=== PATIENT | male | born 1980 | race Caucasian/White ===

== ENCOUNTER → 2022-08-15 11:40 | Outpatient (CLI) | payer OTHER, SELFPAY ==
--- NOTE | ~2022-08-15 | US_ITS ---
US scrotum doppler INDICATION: Right testicular pain and swelling TECHNIQUE: Testicular sonogram utilizing grayscale and color Doppler FINDINGS: The testes are normal in size and appearance. No focal lesions are seen. The right testes measures 3.4 x 3.1 x 3.1 cm centimeters, and the left testis measures 3.6 x 2.5 x 3.2 cm cm. There is increased vascularity in the right testicle. Normal flow in the left testicle. The right epididymis is enlarged, heterogeneous with increased vascularity. The left epididymis is un remarkable. There are bilateral hydroceles, right greater than left. There is a left varicocele. IMPRESSION: 1. Enlarged heterogeneous right epididymis with increased flow in the epididymis and testicle, consi stent with epididymoorchitis. 2: Left varicocele. 3: Bilateral hydroceles, right greater than left. Reviewed, dictated and finalized at location A. IMPRESSION: 1. Enlarged heterogeneous right epididymis with increased flow in the epididym is and testicle, consistent with epididymoorchitis. 2: Left varicocele. 3: Bilateral hydroceles, right greater than left.
== END ==
PROVIDERS: PCP Family Medicine; Visit Provider Urology
DX: N45.1 Epididymitis (principal); I86.1 Scrotal varices; N43.3 Hydrocele, unspecified
CPT/HCPCS: 76870; 93976

== ENCOUNTER 2022-12-16 09:01 | Outpatient (CLI) | payer OTHER, SELFPAY ==
[2022-12-16 19:05] LABS: Hematocrit 47.8 % (42.0-52.0); Hemoglobin 16.5 g/dL (14.0-18.0); Mean Corpuscular HGB Conc 34.5 g/dl (32-36); Mean Corpuscular Hemoglobin 29.3 pg (26-34); Mean Corpuscular Volume 84.8 fl (80-100); Platelet Count Result 233 k/mm3 (150-375); Red Blood Count 5.64 M/mm3 (4.6-6.20); Red Cell Distribution Width 14.7 % (11.5-14.5); White Blood Count 6.4 K/mm3 (4.5-10.0)
[2022-12-16 19:28] LABS: Hemoglobin A1C 9.7 % (<5.7)
[2022-12-16 19:39] LABS: Alanine Aminotransferase 54 U/L (6-50); Albumin Level 4.8 g/dL (3.5-5.1); Alkaline Phosphatase 81 U/L (38-126); Anion Gap 10 mmol/L (8-16); Aspartate Amino Transferase 63 U/L (17-59); Bilirubin,Total 2.6 mg/dL (0.2-1.3); Blood Urea Nitrogen 15 mg/dL (9-20); Calcium 9.6 mg/dL (8.4-10.2); Carbon Dioxide 24 mmol/L (22-30); Chloride 102 mmol/L (98-107); Cholesterol 198 mg/dL (0-200); Estimated Glomerular Filt Rate > 60; Glucose 283 mg/dL (65-110); HDL Direct 38 mg/dL; Potassium 4.1 mmol/L (3.4-5.0); Sodium 136 mmol/L (137-145); Triglycerides 311 mg/dL (<150)
[2022-12-16 19:40] LABS: Creatinine Urine 75.1 mg/dL
[2022-12-16 19:46] LABS: MALB Creatinine Ratio 28.4 mg/g (0-30); Microalbumin Urine Random 21.3 mg/L (0-16.7)
[2022-12-16 19:50] LABS: LDL Cholesterol Direct 109 mg/dL
[2022-12-20 10:44] LABS: Testosterone Free 58.1 pg/mL (35.0-155.0); Testosterone Total 306 ng/dL (250-1100)
== END 2022-12-16 09:02 | disposition home or self-care (01) ==
PROVIDERS: PCP Nurse Practitioner Adult Health; Visit Provider Nurse Practitioner Adult Health
DX: E11.9 Type 2 diabetes mellitus without complications (principal); R53.83 Other fatigue; E29.1 Testicular hypofunction; Z13.9 Encounter for screening, unspecified
CPT/HCPCS: 36415; 80053; 80061; 82043; 83036; 84402; 84403; 84443; 85027

== ENCOUNTER 2023-06-17 07:46 | Outpatient (CLI) | payer OTHER, SELFPAY ==
[2023-06-17 19:07] LABS: Alanine Aminotransferase 67 U/L (6-50); Albumin Level 4.3 g/dL (3.5-5.1); Alkaline Phosphatase 62 U/L (38-126); Anion Gap 9 mmol/L (8-16); Aspartate Amino Transferase 89 U/L (17-59); Bilirubin,Total 3.1 mg/dL (0.2-1.3); Blood Urea Nitrogen 13 mg/dL (9-20); Calcium 9.5 mg/dL (8.4-10.2); Carbon Dioxide 24 mmol/L (22-30); Chloride 105 mmol/L (98-107); Cholesterol 113 mg/dL (0-200); Estimated Glomerular Filt Rate > 60; Glucose 162 mg/dL (65-110); HDL Direct 32 mg/dL; Potassium 3.6 mmol/L (3.4-5.0); Sodium 138 mmol/L (137-145); Triglycerides 154 mg/dL (<150)
[2023-06-17 19:19] LABS: LDL Cholesterol Direct 66 mg/dL
[2023-06-17 19:30] LABS: Hemoglobin A1C 7.3 % (<5.7)
[2023-06-17 19:36] LABS: Creatinine Urine 260.3 mg/dL
[2023-06-17 19:44] LABS: MALB Creatinine Ratio 13.4 mg/g (0-30); Microalbumin Urine Random 34.8 mg/L (0-16.7)
== END 2023-06-17 07:47 | disposition home or self-care (01) ==
LOC: ANHBWCLAB 07:48
PROVIDERS: PCP Nurse Practitioner Adult Health; Visit Provider Nurse Practitioner Adult Health
DX: E11.9 Type 2 diabetes mellitus without complications (principal)
CPT/HCPCS: 36415; 80053; 80061; 82043; 83036

== ENCOUNTER → 2023-06-30 08:46 | Outpatient (CLI) | payer OTHER, SELFPAY ==
--- NOTE | ~2023-06-30 | US_ITS ---
EXAMINATION: US abdomen limited DATE: 06/30/2023 09:25 INDICATION: Abnormal liver enzymes TECHNIQUE: Multiple grayscale and Doppler ultrasound images of the abdomen were obtained. COMPARISON: None available FINDINGS: The head and body of the pancreas are normal. The pancreatic tail is obscured by bowel gas. The liver demonstrates increased echogenicity, heterogenous echotexture, and decreased through trans mission. No surface nodularity. Normal hepatopetal flow in the main portal vein. The gallbladder is n ormal with no abnormal wall thickening, pericholecystic fluid or stones. The normal common bile duct measures 4 mm. There was no sonographic Stuart sign. IMPRESSION: 1. Diffuse hepatic steatosis. Reviewed, dictated and finalized at location L. 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
== END ==
PROVIDERS: Visit Provider Nurse Practitioner Adult Health
DX: R74.8 Abnormal levels of other serum enzymes (principal)
CPT/HCPCS: 76705

== ENCOUNTER 2023-09-28 12:24 | Outpatient (CLI) | payer OTHER, SELFPAY ==
[2023-09-28 18:34] LABS: Hematocrit 49.1 % (42.0-52.0); Hemoglobin 17.4 g/dL (14.0-18.0); Mean Corpuscular HGB Conc 35.4 g/dl (32-36); Mean Corpuscular Volume 87.5 fl (80-100); Mean Platelet Volume 10.6 fl (7.4-10.4); Platelet Count Result 214 k/mm3 (150-375); Red Blood Count 5.61 M/mm3 (4.6-6.20); Red Cell Distribution Width 13.1 % (11.5-14.5)
[2023-09-28 19:43] LABS: Estimated Glomerular Filt Rate > 60
== END 2023-09-28 12:25 | disposition home or self-care (01) ==
LOC: ANHBWCLAB 12:25
PROVIDERS: PCP Nurse Practitioner Adult Health; Visit Provider Nurse Practitioner Adult Health
DX: E11.9 Type 2 diabetes mellitus without complications (principal); Z13.9 Encounter for screening, unspecified
CPT/HCPCS: 36415; 82565; 85027

== ENCOUNTER 2023-12-01 09:01 | Outpatient (CLI) | payer OTHER, SELFPAY ==
[2023-12-17 18:14] VITALS: BMI 38.6
--- NOTE | 2023-12-17 18:14 | WPDSLEEPSTUD ---
Sleep Study Date of Study: 12/01/23 Ordering Provider: DEVAN Tamayo Interpreting Physician: Shahla Barlow MD Sleep Study Type: Split Polysomnogram Height: 1.83 m Weight: 129.274 kg Body Mass Index: 38.6 Neck Circumference (inches): 19 [place]: 16 Reason for Sleep Study Hypersomnolence; known obstructive sleep apnea, no treatment for over a year Sleep History Ernst Kelley is a 43-year-old man with excessive daytime sleepiness. He sleeps on his couch because he snores so badly. He is tired throughout the day and tired on awakening. He had a sleep study at [facility] 3-4 years ago, used a full face mask however had poor tolerance of the mask, feeling claustrophobic, said that it felt like it was covering his entire face. He has used anxiety pills and sleeping pills to help with a sleeping problem. He currently takes Seroquel at 6 pm to get ready for sleep. He occasionally awakens from sleep feeling short of breath. He occasionally wakes at night with heartburn, belching or coughing.??He constantly snores, and constantly snores loudly enough that others complain. He occasionally has trouble sleeping when he has a cold. He occasionally wakes up gasping for breath during the night. He rarely sweats excessively at night. He rarely notices his heart pounding or beating irregularly during the night. He frequently falls asleep during the day. He rarely falls asleep involuntarily, however rarely falls asleep while driving. He never experiences loss of muscle tone with strong emotion. 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 He never feels paralyzed on waking or falling asleep. He never experiences vivid dreams upon waking or falling asleep. He rarely feels afraid of going to sleep. He occasionally has nightmares. He occasionally recalls his dreams. He occasionally has thoughts racing through his mind. He rarely feels sad or depressed. He occasionally feels anxiety. He occasionally notices parts of his body jerk. He does not know if he kicks during the night. He rarely feels crawling or aching feelings in his legs. He rarely feels leg pain at night. He never has morning jaw pain, never grinds his teeth at night. He occasionally feels bothered by pain during the day, rarely awakened by pain during the night. He occasionally wakes up feeling stiff in the morning, and he rarely wakes feeling sore or achy. He occasionally awakens with pain in his neck, spine, or joints. He has concentration and memory problems. He has fatigue. Normal bedtime is between 10:00 p.m. and 11:00 p.m., falling asleep within 5 minutes, waking 3 times at night. While awake, he goes to the bathroom and returns to sleep within 2-3 minutes. Wake time is 5:00 a.m.. He typically gets 5-7 hours of sleep per night. He keeps the same schedule on weekends, going to bed at 11 and waking at 5 in the morning. He takes naps in the afternoon or evening however a short nap lasting 10-15 minutes is not refreshing. He is usually drowsy for 3 hours or longer after waking. Habits:??Tobacco: never smoker Caffeine:3-4 servings per day, 44 oz. Alcohol: not daily Recreational substances: none PMFSH Past Medical History Medical History (Updated 12/17/23 @ 18:41 by Shahla Barlow MD) Anxiety Diabetes Obstructive sleep apnea Surgical History Surgical History History of testicular surgery Family History Family History Father Diabetes mellitus Social History Social History Smoking status: Never smoker Alcohol intake: current Alcohol use details: beer A couple a week Substance use: never Lack of Transportation: No Lack of Food: Never True Current Housing: I Have Housing Concerned About Future Housing: No Difficulty Payin
== END 2023-12-02 06:41 | disposition home or self-care (01) ==
LOC: ANHCSM 09:02
PROVIDERS: PCP Nurse Practitioner Adult Health; Visit Provider Physician Assistant
DX: G47.33 Obstructive sleep apnea (adult) (pediatric) (principal)
CPT/HCPCS: 95811

== ENCOUNTER 2023-12-17 11:44 | Outpatient (CLI) | payer OTHER, SELFPAY ==
--- NOTE | ~2023-12-17 | XR_ITS ---
EXAM: XR shoulder RT min 2V DATE: 12/17/2023 12:04 HISTORY: No recent injury right shoulder pain . COMPARISON: None available. FINDINGS: Normal mineralization. No fracture or dislocation. No lytic or blastic lesion. Moderate de generative change at the AC joint, with 4 mm inferior osteophytosis. Mild acromial tip enthesopathy. No erosion or periosteal change. Soft tissues within normal limits. IMPRESSION: Moderate AC joint osteoarthritis, with additional findings suggestive of osseous outlet c ompromise. Consider MR of the shoulder for further evaluation. Reviewed, dictated and finalized at location K. IMPRESSION: Moderate AC joint osteoarthritis, with additional findings suggesti ve of osseous outlet compromise. Consider MR of the shoulder for further evalua tion.
== END 2023-12-17 11:45 ==
PROVIDERS: PCP Nurse Practitioner Adult Health; Visit Provider Nurse Practitioner Adult Health
DX: M19.011 Primary osteoarthritis, right shoulder (principal)
CPT/HCPCS: 73030

== ENCOUNTER 2023-12-30 14:27 | Outpatient (CLI) | payer OTHER, SELFPAY ==
--- NOTE | ~2023-12-30 | MR_ITS ---
EXAMINATION: MR shoulder RT wo con DATE: 12/30/2023 15:07 INDICATION: Right shoulder pain TECHNIQUE: Magnetic resonance imaging (MRI) of the right shoulder was performed without intravenous c ontrast. Sequences included axial PD-weighted FS FSE, coronal oblique PD-weighted FS FSE, coronal obl ique T2-weighted FS FSE, sagittal PD-weighted FS FSE, and sagittal T1-weighted SE. COMPARISON: None. FINDINGS: Coracoacromial arch: The acromion undersurface is curved in morphology (type II). There is mild thickening of the coracoac romial ligament at its acromial insertion where there is also a moderate-sized anterior subacromial s pur. Mild acromioclavicular osteoarthritis. Rotator cuff: Mild supraspinatus and infraspinatus tendinopathy. There is a very small intrasubstance tear along th e middle facet footplate of the conjoined portion of the supraspinatus and infraspinatus tendons. The re is mild bursal sided fraying along the bursal side of the supraspinatus tendon near its superior f acet insertion. Mild hypertrophic and cystic changes along the anterior superior facet. The teres min or tendon is normal. Mild subscapular tendinopathy. Longitudinal split tear with small intrasubstance ganglion cyst extending 1.8 cm medial to lateral from the lesser tuberosity footplate of the cephala d third of the tendon. Normal rotator cuff muscle bulk and signal. Biceps tendon, glenoid labrum and glenohumeral cartilage: Long head of the biceps tendon is normal. Likely degenerative tearing with irregular increased signal of the anterior to anteroinferior glenoid labrum beginning cephalad at the 1:00 position and extendi ng inferiorly to the 5:00 position. Glenohumeral cartilage is normal. Fluid: Physiologic amount of fluid in the glenohumeral joint and biceps tendon sheath. No loose osteochondr al bodies. Mild increased fluid signal along the subacromial/subdeltoid bursa consistent with minimal bursitis. Bones/other: Bone alignment is normal. No fracture or pathologic marrow replacing process. There is partial tear o f the middle and anterior inferior glenohumeral ligaments. IMPRESSION: 1. Mild rotator cuff tendinopathy with mild bursal sided fraying at the distal supraspinatus tendon, very small intrasubstance tears at the middle facet footplate of the conjoined supraspinatus and infr aspinous tendons and small longitudinal split tear beginning at the lesser tuberosity insertion of th e cephalad subscapularis tendon. 2. Degenerative tearing of the anterior to anteroinferior glenoid labrum with partial tears of the mi ddle glenohumeral and anterior inferior glenohumeral ligaments. Reviewed, dictated and finalized at location A. IMPRESSION: 1. Mild rotator cuff tendinopathy with mild bursal sided fraying at the distal supraspinatus tendon, very small intrasubstance tears at the middle facet footp late of the conjoined supraspinatus and infraspinous tendons and small longitud inal split tear beginning at the lesser tuberosity insertion of the cephalad bah bscapularis tendon. 2. Degenerative tearing of the anterior to anteroinferior glenoid labrum with p artial tears of the middle glenohumeral and anterior inferior glenohumeral liga ments.
== END 2023-12-30 14:28 | disposition home or self-care (01) ==
PROVIDERS: PCP Nurse Practitioner Adult Health; Visit Provider Nurse Practitioner Adult Health
DX: M25.511 Pain in right shoulder (principal); R93.6 Abnormal findings on diagnostic imaging of limbs
CPT/HCPCS: 73221

== ENCOUNTER 2024-01-18 07:59 | Outpatient (CLI) | payer OTHER, SELFPAY ==
[2024-01-18 20:03] LABS: Creatinine Urine 309.2 mg/dL
[2024-01-18 20:07] LABS: MALB Creatinine Ratio 9.4 mg/g (0-30); Microalbumin Urine Random 29.1 mg/L (0-16.7)
== END 2024-01-18 08:00 | disposition home or self-care (01) ==
PROVIDERS: PCP Nurse Practitioner Adult Health; Visit Provider Nurse Practitioner Adult Health
DX: E11.9 Type 2 diabetes mellitus without complications (principal)
CPT/HCPCS: 82043

== ENCOUNTER 2024-01-27 11:05 | Outpatient (CLI) | payer OTHER, SELFPAY ==
[2024-01-27 19:18] LABS: Alanine Aminotransferase 63 U/L (6-50); Albumin Level 4.2 g/dL (3.5-5.1); Alkaline Phosphatase 56 U/L (38-126); Anion Gap 10 mmol/L (4-12); Aspartate Amino Transferase 48 U/L (17-59); Bilirubin,Total 2.4 mg/dL (0.2-1.3); Blood Urea Nitrogen 15 mg/dL (9-20); Calcium 9.4 mg/dL (8.4-10.2); Carbon Dioxide 23 mmol/L (22-30); Chloride 105 mmol/L (98-107); Cholesterol 173 mg/dL (0-200); Estimated Glomerular Filt Rate > 60; Glucose 110 mg/dL (65-110); HDL Direct 36 mg/dL; Sodium 138 mmol/L (137-145); Triglycerides 187 mg/dL (<150)
[2024-01-27 19:29] LABS: LDL Cholesterol Direct 99 mg/dL
[2024-01-27 20:38] LABS: Hemoglobin A1C 6.6 % (<5.7)
[2024-02-04 09:54] LABS: Testosterone Free 121.6 pg/mL (35.0-155.0); Testosterone Total 607 ng/dL (250-1100)
== END 2024-01-27 11:06 | disposition home or self-care (01) ==
LOC: ANHBWCLAB 11:08
PROVIDERS: PCP Nurse Practitioner Adult Health; Visit Provider Nurse Practitioner Adult Health
DX: E11.9 Type 2 diabetes mellitus without complications (principal); E29.1 Testicular hypofunction
CPT/HCPCS: 36415; 80053; 80061; 83036; 84402; 84403

== ENCOUNTER 2024-02-22 15:00 | Outpatient (RCR) | payer OTHER, SELFPAY ==
--- NOTE | 2024-01-11 09:08 | PCPTNOTE ---
Patient did not show up for scheduled initial evaluation this date.
--- NOTE | 2024-01-21 17:55 | OPREHPOC ---
Outpatient Therapy Plan of Care This is a Multidisciplinary Plan of Care that may contain components documented by all disciplines (PT, OT, and ST.) PT Problem 1 PT Problem #1 Knowledge Deficit PT Goal 1 Goal / Goal Update Independent with HEP Target Visit 4 PT Problem 2 PT Problem #2 Impaired Range of Motion PT Goal 1 Goal / Goal Update Patient will improve right shoulder flexion active ROM to 170 degrees to improve functional reaching motion Target Visit 8 PT Goal 2 Goal / Goal Update Patient will improve R shoulder external rotation ROM to 90 degrees to achieve full functional reaching capability in dominant shoulder for self care Target Visit 8 PT Problem 3 PT Problem #3 Impaired Strength PT Goal 1 Goal / Goal Update Improve R shoulder external rotation strength to 4 +/5 to improve shoulder stability for reaching and lifting of objects and to reduce postural impingement Target Visit 8 PT Goal 2 Goal / Goal Update Patient will improve R shoulder flexion strength to 4+/5 to improve object lifting ability for ADL performance Target Visit 8 PT Problem 4 PT Problem #4 Impaired Functional Mobil PT Goal 1 Goal / Goal Update Patient will demonstrate ability to perform scapular reach with R UE for improve dressing and self care activity Target Visit 8
--- NOTE | 2024-01-21 17:56 | PTOPEVAL1 ---
Assessment and note entered by Stephane Edmond, PT Evaluation Information Assessment Status Evaluation Diagnosis Adhesive capsulitis R shoulder, Incomplete rotator cuff tear Right shoulder ICD-10 Condition Codes (PT) M25.511 Onset 2021 Subjective Information Reports that he does not get pain currently at rest. When he lifts his arm to the side he is noting increased pain. No pain at night. 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 He is having a lot of trouble reaching over head and behind back. He had an MRI indicating extensive damage of shoulder. Reported Pain Level Pain Score 4: Self Report Assessment PT Clinical Summary Patient presents with signs and symptoms indicative of impingement syndrome and possible rotator cuff compromise. With motion assessment today minimal indication of adhesive capsulitis as flexion and external rotation were fair but painful arc. 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 Plan of Care Interventions Electrical Stimulation,Hot Pack/Cold Pack,Manual Therapy,Neuro Re-education,Therapeutic Activities, Therapeutic Exercise PT Services Indicated Yes Treatment Frequency and 2x/week for 8 visits Duration These treatments will address the objective and functional deficits as defined above. The patient will be advanced safely and appropriately in order for the patient to progress towards his/her prior level of function. Additional exercises will be introduced and as well as a comprehensive home exercise program upon discharge, if needed, ?to ensure carryover of functional gains achieved in the clinic. This treatment plan has been reviewed and agreement upon by the patient.
--- NOTE | 2024-02-18 17:44 | PTOPPROG ---
Assessment and note entered by Stephane Edmond, PT Evaluation Information Assessment Status Progress Diagnosis Adhesive capsulitis R shoulder, Incomplete rotator cuff tear Right shoulder ICD-10 Condition Codes (PT) M25.511 Onset 2021 Subjective Information Reports that pain continue to be somewhat consistent and he is more aware of anterior shoulder pain. He has been using it more because he has been able to move it more. Feels that he has the motion but the range is painful. Still getting a lot of pinch on the anterior shoulder. Assessment PT Clinical Summary Patient demonstrate near full functional shoulder ROM at this time. He presents with a painful arc increased near end range of shoulder mobility. Primary pain is indicated in biceps tendon with minimal shoulder pain in posterior aspect at this time. He has been consistent and committed with HEP and has shown strength progress but continues to have trouble with overhead activity and sustained muscle contraction. He has reported consistent commitment with monitoring of blood sugary and dietary change in order to help make him a surgical candidate. He will continue to benefit from skilled therapy to address continued weakness. I have discussed possibility of surgery with PA and would advocate at this time due to labral instability and chronic biceps impingement limiting overhead activity and tendonitis. Patient will continue therapy to improve scapular stability and ensure proper range of motion. Plan of Care Interventions Electrical Stimulation,Hot Pack/Cold Pack,Manual Therapy,Neuro Re-education,Therapeutic Activities, Therapeutic Exercise PT Services Indicated Yes Treatment Frequency and 1x/week for 4 visits Duration These treatments will address the objective and functional deficits as defined above. The patient will be advanced safely and appropriately in order for the patient to progress towards his/her prior level of function. Additional exercises will be introduced and as well as a comprehensive home exercise program upon discharge, if needed, ?to ensure carryover of functional gains achieved in the clinic. This treatment plan has been reviewed and agreement upon by the patient.
--- NOTE | 2024-03-14 07:24 | PTOPDC ---
Assessment and note entered by Stephane Edmond, PT Evaluation Information Assessment Status Discharge - Pt Not Presen Diagnosis Adhesive capsulitis R shoulder, Incomplete rotator cuff tear Right shoulder ICD-10 Condition Codes (PT) M25.511 Onset 2021 Subjective Information Patient contacted clinic reporting that he is scheduled for shoulder surgery in May of 2024 but will be on cancellation list could he have it sooner. Reports that he is comfortable with [facility] and will continue independently. No questions at this time. Assessment PT Clinical Summary Patient to be discharged to [facility] a this time. He has understanding of continued need to retain ROM and strengthening moving into surgery and plans to return post operatively. Plan of Care PT Services Indicated D/C to [facility]
== END 2024-03-14 16:44 | disposition home or self-care (01) ==
LOC: ANHPT 15:00
PROVIDERS: PCP Nurse Practitioner Adult Health; Visit Provider Orthopaedic Surgery
DX: M25.511 Pain in right shoulder (principal); M19.011 Primary osteoarthritis, right shoulder; M75.21 Bicipital tendinitis, right shoulder; M75.41 Impingement syndrome of right shoulder; S43.431A Superior glenoid labrum lesion of right shoulder, initial encounter; S46.011A Strain of muscle(s) and tendon(s) of the rotator cuff of right shoulder, initial encounter; M75.01 Adhesive capsulitis of right shoulder
CPT/HCPCS: 97014; 97110; 97140; 97161; 97530; G0283

== ENCOUNTER 2024-05-23 08:34 | Outpatient (CLI) | payer OTHER, SELFPAY ==
--- OUTSIDE RECORDS SUMMARY | 2024-05-23 08:53 | XMS_ITS | Clinical Summary ---
Author Organization [facility] Address [address] [place] [address] Phone Care Team Providers Care Splash Line Operator Name Role Phone SLOAN ABRAHAM DO [phone] Reason for Visit and Chief Complaint The Chief Complaint is: PT STATES HE HAS A RASH ON HIS HANDS , FOREARMS , BELLY. DOESNT KNOW WHAT ITS FROM, STATES IT ITCHES. STARTED THIS AM Problems Includes: Problems addressed during this encounter and other active Problems No Active Problems Plan of Treatment Pt to use prescription as ordered. Purpose of and use of medication discussed. . - Last Documented On 02/11/2017 10:36AM ; [facility] Pending Tests Order Diagnosis Results Due Ordering P rovider Injections Depo-Medrol 80MG Dermatitis, unspecified 02/11/17 KOBE A KAHRIG INJECTION SPECIALIST-BC Last Documented On 7 10:36AM ; [facility] Injections Theraputic Injection Dermatitis, unspecified KOBE A KAHRIG INJECTION SPECIALIST-BC Last Documented On 7 10:36AM ; [facility] Assessments Includes: Assessments from this encounter Findings - Dermatitis - Last Documented On 02/11/2017 10:36AM ; [facility] Medical Equipment - Implanted Devices Includes: Current Devices No Medical Equipment Recorded Medications Includes: Medications discussed during this encounter and other current Medications Discontinued / Stopped on this date GERALDO ALMONTE INJECTION SPECIALIST-BC on 11/17/2016 PredniSONE 10MG Oral Tablet Provider: GERALDO ALMONTE INJECTION SPECIALIST-BC Diagnosis: Dermatitis, unsp ecified Last Documented On 7 10:11AM By HUE PÉREZ ; [facility] HydrOXYzine Pamoate 25MG Oral Capsule Provider: GERALDO ALMONTE INJECTION SPECIALIST -BC Diagnosis: Dermatitis, unsp ecified Last Documented On 7 10:11AM By HUE PÉREZ ; [facility] New / Renewed during this visit KOBE COXP-BC on 02/11/2017 PredniSONE 20MG Oral Tablet Provider: KOBE GRACIA-BC 7 day supply: 15 tablet, 0 refills Diagnosis: Dermatitis, unspecified 1 tab three times daily for 3 days, then 1 tab twice daily for 2 days, then 1 tab once daily for 2 days Pharmacy: [address], [id number] - Last Documented On 7 11:01AM By BRIANA PÉREZ ; [facility] Current Medications (continue as prescribed) Furosemide 20 MG Oral Tablet 10/22/2022 Provider: Diagnosis: Last Documented On 10/27/2022 11:43AM By Emma Jalloh MA ; [facility] BuPROPion HCl 75MG Oral Tablet 11/17/2016 Provider: Diagnosis: Last Documented On 11/17/2016 2:58PM By SRIDHAR PÉREZ ; [facility] FLUoxetine HCl 10MG Oral Tablet 11/17/2016 Provider: Diagnosis: Last Documented On 11/17/2016 2:57PM By SRIDHAR PÉREZ ; [facility] ClonazePAM 1MG Oral Tablet 11/17/2016 Provider: Diagnosis: Last Documented On 11/17/2016 2:57PM By SRIDHAR PÉREZ ; [facility] Past Medications on file predniSONE 10 MG Oral Tablet 10/27/2022 - 11/04/2022 Provider: EREN PEARL Diagnosis: Allergic contact dermatitis due to other agents take 4 tablets x2 days, then 3 tablets x2 days, then 2 tablets x2days then 1 tablet x2 days then stop. Last Documented On 10/27/2022 12:04PM By Eren GRACIA ; [facility] Medications Administered Includes: Administered Medications from this encounter Medications Administered Diagnosis Date Pro vider DEPO-Medrol 80 MG/ML IJ SUSP 02/11/2017 KOBE SIMPSON INJECTION SPECIALIST-BC Last Documented On 7 10:25AM By HUE PÉREZ ; [facility] Vital Signs Includes: Vital Signs from this encounter Vital Name 02/11/2017 10:08A Blood Pressure Sitting (mmHg) 126/84 Pulse Rate-Sitting (bpm) 92 Respiration Rate (breaths/min) 18 Temp-Oral (F) 97.6 Weight (lb) 284 Oxygen Saturation (%) 97 Last Documented: On 02/11/2017 10:11A M ; [facility] Results Includes: Results discussed during this encounter No Results Recorded For Specified Dates History of Present Illness Includes: History of Present Illness from this encounter FRIDA PERRIN is a 36 year old male. - Medication list reviewed. - Feeling fine - Not feeling poorly (malaise) - No fever - No chills - No headache - No sinus pain - Swollen eyelids this morning- has resolved with antihistamine - Swollen right eyelid - Swollen left eyelid - No ear symptoms - No nasal discharge - No postnasal drip - No nasal passage blockage (stuffiness) - No sneezing - No nasal itching - No sore throat - No chest pain or discomfort - No palpitations - No dyspnea - No cough - No wheezing - No nausea - No vomiting - No abdominal pain - No myalgias - No muscle cramps - No lightheadedness - Skin symptoms Home meds for eight years- not new. Has pruritic rash that developed this morning. Started when he was in college years. Happens twice a year. benadryl helps some but steroid shot works best. Etiology unknown. No fever or chills. [place] snot feel ill. No new foods or lotions/detergents. Has not seen manufacturing inspector. Rash outbreak is random. Occurs on arms, abdomen, groin, upper thighs. Today his eyes were swollen this morning. Took benadryl this morning. Social History Description Last Updated Smoking status : Never smoker 11/17/2016 Last Documented On 7 10:08AM ; [facility] Procedures and Surgical History Includes: Procedures from this encounter Procedures Code Diagnosis Performing Provider Service Location Service Date the options include antihistamines as needed per product instructions. Benadryl at night time. Zyrtec (cetirizine), claritin (loratidine) or Merari (fexofenadine) once daily, in morning Last Documented On 7 10:22AM ; [facility] recommend to see manufacturing inspector Last Documented On 7 10:22AM ; [facility] Pt to use OTC fever/pain product as need ed per product instruction.~ Last Documented On 7 10:22AM ; [facility] plan of care reviewed and agreed to by t he patient Last Documented On 7 10:22AM ; [facility] patient to call if symptoms worsen or not improved in 5-7 days to update patient's status Last Documented On 7 10:22AM ; [facility] referred to primary care physician Last Documented On 7 10:22AM ; [facility] Clinical summary provided to patient Last Documented On 7 10:22AM ; [facility] Medical History Includes: Medical History addressed during this encounter Description Last Updated No contact with poison vane 05/15/2016 Last Documented On 7 10:08AM ; [facility] No exposure to chemical liquids 05/15/19 17 Last Documented On 7 10:08AM ; [facility] No secondhand tobacco smoke in home 04/27 Last Documented On 7 10:08AM ; [facility] Not using a new laundry product 05/15/19 17 Last Documented On 7 10:08AM ; [facility] Not using a new skin care product 2016 Last Documented On 7 10:08AM ; [facility] Pt does not get blood pressure checked a t other facility 05/15/2016 Last Documented On 7 10:08AM ; [facility] Family History Includes: Family History addressed during this encounter No Family History Recorded Review of Systems Includes: Review of Systems from this encounter Systemic: No systemic symptoms and no fever. Head: No head symptoms. Neck: No neck symptoms. Eyes: No eye symptoms. Otolaryngeal: No otolaryngeal symptoms, no earache, no nasal discharge, and no sore throat. Cardiovascular: No cardiovascular symptoms. Pulmonary: No pulmonary symptoms, no cough, and no wheezing. Gastrointestinal: No gastrointestinal symptoms. Hematologic: No hematologic symptoms. Musculoskeletal: No musculoskeletal symptoms. Neurological: No dizziness. Skin: Skin lesion: rash: Mental Status Includes: Mental Status from this encounter No Mental Status Recorded Functional Status Includes: Functional Status from this encounter No Functional Status Recorded Physical Exam Includes: Physical Exam from this encounter Allergies Includes: Active Allergies No Known Allergies Encounters Encounter Provider Location Date Check-In Time Check-Out Time Diagnosis WALK-IN CLINIC SICK VISIT KOBE SIMPSON [facility] 02/12/20 17 10:06AM 10:22AM Dermatitis Insurance Includes: Active Insurance Policies Plan Name Member ID Group # Subscriber Relationship Effect elma Dates - [facility] [id number] NERY PERRIN Se lf Clinical Notes Includes: Clinical Notes from this encounter No Clinical Notes Recorded
--- OUTSIDE RECORDS SUMMARY | 2024-05-23 08:53 | XMS_ITS | Clinical Summary ---
Author Organization [facility] Address [address] [place] [address] Phone Care Team Providers Care Campground Manager Name Role Phone SLOAN ABRAHAM DO [phone] Reason for Visit and Chief Complaint The Chief Complaint is: pt c/o rash on his arms, legs, stomach, and hands Problems Includes: Problems addressed during this encounter and other active Problems No Active Problems Plan of Treatment Pt to use prescription as ordered. Purpose of and use of medication discussed. . - Last Documented On 03/24/2017 11:24AM ; [facility] Assessments Includes: Assessments from this encounter Findings - Dermatitis - Last Documented On 03/24/2017 11:24AM ; [facility] Medical Equipment - Implanted Devices Includes: Current Devices No Medical Equipment Recorded Medications Includes: Medications discussed during this encounter and other current Medications Discontinued / Stopped on this date KOBE WILLIAMSON on 02/11/2017 PredniSONE 20MG Oral Tablet Provider: KOBE WILLIAMSON Diagnosis: Dermatitis, unsp ecified Last Documented On 7 11:01AM By BRIANA PÉREZ ; [facility] New / Renewed during this visit XENIA PEARL on 03/24/2017 Triamcinolone Acetonide 0.1% External Cream Provider: XENIA PEARL 10 day supply: 1 tube, 0 refills Diagnosis: Dermatitis, unspecified Apply twice a day Pharmacy: Tamera Mott ([facility]) - [address] , [facility], [id number] - Last Documented On 9 1:29PM By PRABHU WILLIAMSON ; [facility] PredniSONE 20MG Oral Tablet Provider: XENIA N RIVERA TRUCK DRIVER INSTRUCTOR-C 8 day supply: 12 tablet, 0 refills Diagnosis: Dermatitis, unspecified as directed 2 tab po qd x 4 then 1 tab po qd x 4 Pharmacy: [facility], [id number] - Last Documented On 9 1:29PM By PRABHU WILLIAMSON ; [facility] Current Medications (continue as prescribed) Furosemide 20 MG Oral Tablet 10/22/2022 Provider: Diagnosis: Last Documented On 10/27/2022 11:43AM By Emma Jalloh MA ; [facility] BuPROPion HCl 75MG Oral Tablet 11/17/2016 Provider: Diagnosis: Last Documented On 11/17/2016 2:58PM By SRIDHAR PÉREZ ; [facility] FLUoxetine HCl 10MG Oral Tablet 11/17/2016 Provider: Diagnosis: Last Documented On 11/17/2016 2:57PM By SRIDHAR PÉREZ ; [facility] ClonazePAM 1MG Oral Tablet 11/17/2016 Provider: Diagnosis: Last Documented On 11/17/2016 2:57PM By SRIDHAR PÉREZ ; [facility] Past Medications on file predniSONE 10 MG Oral Tablet 10/27/2022 - 11/04/2022 Provider: ALIZA PEARL Diagnosis: Allergic contact dermatitis due to other agents take 4 tablets x2 days, then 3 tablets x2 days, then 2 tablets x2days then 1 tablet x2 days then stop. Last Documented On 10/27/2022 12:04PM By Aliza GRACIA ; [facility] Medications Administered Includes: Administered Medications from this encounter Medications Administered Diagnosis Date Pro vider DEPO-Medrol 80 MG/ML IJ SUSP 03/24/2017 XENIA COXP-C Last Documented On 7 11:19AM By BRIANA PÉREZ ; [facility] Vital Signs Includes: Vital Signs from this encounter Vital Name 03/24/2017 11:11A Blood Pressure Sitting R 128/78 BP Cuff Size Large Pulse Rate-Sitting (bpm) 98 Pulse Rhythm Regular Respiration Rate (breaths/min) 18 Temp-Oral (F) 97.8 Weight (lb) 288 Oxygen Saturation (%) 99 Last Documented: On 03/24/2017 11:12A M ; [facility] Results Includes: Results discussed during this encounter No Results Recorded For Specified Dates History of Present Illness Includes: History of Present Illness from this encounter FRIDA PERRIN is a 36 year old male. - Medication list reviewed. - Feeling fine - Not feeling poorly (malaise) - No fever - No chills - No headache - No sinus pain - No eye symptoms - No ear symptoms - No nasal [...] cramps - No lightheadedness - Skin symptoms -Rash over the bilateral arms and spreading Patient is here today for recurrent rash. He reports it first started when he was in college and he will have breakouts a few times a year. Started when he was in college years. He reports Benadryl helps some but steroid shot works best. Etiology unknown. No fever or chills. Does not feel ill. No new foods or lotions/detergents. Has not seen therapeutic massage technician or acquisition marketing manager. Social History No Social History Recorded - Smoking Status Unknown Procedures and Surgical History Includes: Procedures from this encounter Procedures Code Diagnosis Performing Provider Service Location Service Date the options include antihistamines as needed per product instructions. Benadryl at night time. Zyrtec (cetirizine), claritin (loratidine) or Merari (fexofenadine) once daily, in morning Last Documented On 11:19AM ; [facility] recommend to see therapeutic massage technician Last Documented On 7 11:19AM ; [facility] Pt to use OTC fever/pain product as need ed per product instruction.~ Last Documented On 11:19AM ; [facility] plan of care reviewed and agreed to by t valentina patient Last Documented On 11:19AM ; [facility] patient to call if symptoms worsen or not improved in 5-7 days to update patient's status Last Documented On 11:19AM ; [facility] referred to primary care physician Last Documented On 7 11:19AM ; [facility] Clinical summary provided to patient Last Documented On 7 11:19AM ; [facility] Medical History Includes: Medical History addressed during this encounter Description Last Updated No contact with poison vane 05/15/2016 Last Documented On 7 11:19AM ; [facility] No exposure to chemical liquids 05/15/19 Last Documented On 7 11:19AM ; [facility] No secondhand tobacco smoke in home 04/27 Last Documented On 7 11:19AM ; [facility] Not using a new laundry product 05/15/19 Last Documented On 7 11:19AM ; [facility] Not using a new skin care product 2016 Last Documented On 7 11:19AM ; [facility] Pt does not get blood pressure checked a t other facility 05/15/2016 Last Documented On 7 11:19AM ; [facility] Family History Includes: Family History addressed during [...] Check-Out Time Diagnosis WALK-IN CLINIC SICK VISIT XENIA RIVERA TRUCK DRIVER INSTRUCTOR-C [facility] 7 11:00AM 11:20AM Dermatitis Insurance Includes: Active Insurance Policies Plan Name Member ID Group # Subscriber Relationship Effect elma Dates - [facility] [id number] NERY PERRIN Se lf Clinical Notes Includes: Clinical Notes from this encounter No Clinical Notes Recorded
--- OUTSIDE RECORDS SUMMARY | 2024-05-23 08:53 | XMS_ITS | Clinical Summary ---
Author Organization [facility] Address [address] [place] [id number] Phone Care Team Providers Care Student Life Vice President Name Role Phone Donaldo Jenkins MD Primary Care Provider [phone] Allergies No known active allergies Medications Cetirizine HCl (ZYRTEC PO) Take by mouth. Act elma clonazePAM (KLONOPIN) 1 MG Tablet 1 Tab. 7 Active FLUoxetine (PROZAC) 40 MG Capsule 2 Caps. 7 Active buPROPion SR (WELLBUTRIN SR) 150 MG TABLET SR 12 HR 1 Tab. 7 Active methylPREDNISol one (MEDROL DOSPACK) 4 MG Tablet Therapy Pack Follow instructions on pack, take with food Give one pack 1 Dose Pack 9 Active Venlafaxine HCl (EFFEXOR PO) Take by mouth. Ac tive hydrOXYzine (VISTARIL) 25 MG Capsule Take 25 mg by mouth 3 times daily as needed. Active Active Problems Problem Noted Date Diagnosed Date Major depressive disorder, r ecurrent episode, moderate with anxious distress 02/25/2019 Family History Medical History Relation Name Comments Depression Maternal Uncle Anxiety disorder Mother Depression Paternal Aunt Relation Name Status Comments Maternal Uncle Mother Paternal Aunt Social History Tobacco Use Types Packs/Day Years Used Date Smoking Tobacco: Never Smokeless Tobacco: Never Sexually Active Control Partners Comments Yes Female Sex and Gender Information Value Date Recorded Sex Assigned at Not on file Legal Sex Male 12:25 AM CDT Gender Identity Not on file Sexual Orientation Not on file Last Filed Vital Signs Vital Sign Reading Time Taken Comments Blood Pressure 128/64 11/08/2018 11:29 AM CDT Pulse 84 11/08/2018 11:29 AM CDT Temperature 36.8 ??C (98.2 ??F) 11/08/2018 11:29 AM C DT Respiratory Rate 20 11/08/2018 11:29 AM CDT Oxygen Saturation 98% 11/08/2018 11:29 AM CDT Inhaled Oxygen Concentration - - Weight 136.1 kg (300 lb) 11/08/2018 11:29 AM CDT Height 182.9 cm (6') 11/08/2018 11:29 AM CDT Body Mass Index 40.69 11/08/2018 11:29 AM CDT Plan of Treatment Health Maintenance Due Date Last Done Comments TdaP Immunization 1980 Influenza Immunization (#1) 2023 02/11/2018, 1 SARS-COV-2 Immunization (2023- season) 2023 Respiratory Syncytial Virus (RSV) Immunization (Adult) (1 - 1-dose 75+ series) 2057 DTaP/Tdap/Td Immunization Discontinued 1996, 12/07/1987, 12/20/1984, Additional history exists Hepatitis B Immunization Completed 000, 03/06/1999, 01/03/1999 Hepatitis C Virus (HCV) Screening Completed 11/12/2016 Meningococcal Immunization (ACWY) Aged Out No longer eligible based on patient's age to complete this topic Pneumococcal Immunization Combined Aged Out No longer eligible based on patient's age to complete this topic Rotavirus Immunization Aged Out No lo nger eligible based on patient's age to complete this topic Insurance [facility] Care Teams Student Life Vice President Relationship Specialty Start Date End Date Donaldo Jenkins MD [address] [place] [address] PCP - General Family Medicine 11/08/18
--- OUTSIDE RECORDS SUMMARY | 2024-05-23 08:53 | XMS_ITS ---
Care Plan - [facility] Created on: May 23, 2024 NERY PERRIN : 1980 Sex: Male Author Organization [facility] Address [address] [place] [address] Phone Care Team Providers Care Label Cutter Name Role Phone SLOAN ABRAHAM DO [phone]
--- OUTSIDE RECORDS SUMMARY | 2024-05-23 08:53 | XMS_ITS | Clinical Summary ---
Author Organization [facility] Address [address] [place] [address] Phone Care Team Providers Care Construction Administrative Assistant Name Role Phone SLOAN ABRAHAM DO [phone] Reason for Visit and Chief Complaint WALK-IN CLINIC SICK VISIT Problems Includes: Problems addressed during this encounter and other active Problems No Active Problems Plan of Treatment No Plan of Treatment Recorded Assessments Includes: Assessments from this encounter No Assessments Recorded Medical Equipment - Implanted Devices Includes: Current Devices No Medical Equipment Recorded Medications Includes: Medications discussed during this encounter and other current Medications Discontinued / Stopped on this date KOBE SIMPSON GEOSPATIAL TECHNOLOGIST-BC on 02/11/2017 PredniSONE 20MG Oral Tablet Provider: KOBE SIMPSON GEOSPATIAL TECHNOLOGIST-BC Diagnosis: Dermatitis, unsp ecified Last Documented On 11:01AM By BRIANA PÉREZ ; [facility] Current Medications (continue as prescribed) Furosemide 20 MG Oral Tablet 10/22/2022 Provider: Diagnosis: Last Documented On 10/27/2022 11:43AM By Emma Jalloh MA ; [facility] BuPROPion HCl 75MG Oral Tablet 11/17/2016 Provider: Diagnosis: Last Documented On 11/17/2016 2:58PM By SRIDHAR PÉREZ ; [facility] FLUoxetine HCl 10MG Oral Tablet 11/17/2016 Provider: Diagnosis: Last Documented On 11/17/2016 2:57PM By SRIDHAR PÉREZ ; [facility] ClonazePAM 1MG Oral Tablet 11/17/2016 Provider: Diagnosis: Last Documented On 11/17/2016 2:57PM By SRIDHAR PÉREZ ; [facility] Medications Administered Includes: Administered Medications from this encounter No Administered Medications Recorded Results Includes: Results discussed during this encounter No Results Recorded For Specified Dates History of Present Illness Includes: History of Present Illness from this encounter No History of Present Illness Recorded Social History No Social History Recorded - Smoking Status Unknown Medical History Includes: Medical History addressed during this encounter No Medical History Recorded Family History Includes: Family History addressed during this encounter No Family History Recorded Review of Systems Includes: Review of Systems from this encounter No Review of Systems Recorded Mental Status Includes: Mental Status from this encounter No Mental Status Recorded Functional Status Includes: Functional Status from this encounter No Functional Status Recorded Physical Exam Includes: Physical Exam from this encounter No Physical Exam Recorded Allergies Includes: Active Allergies No Known Allergies Insurance Includes: Active Insurance Policies Plan Name Member ID Group # Subscriber Relationship Effect elma Dates 1 - [facility] [id number] NERY PERRIN Se lf Clinical Notes Includes: Clinical Notes from this encounter No Clinical Notes Recorded
--- OUTSIDE RECORDS SUMMARY | 2024-05-23 08:53 | XMS_ITS ---
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 Purpose of and use of medication discussed. WALK IN PATIENT - NEW PT with ALIZA WALKER [facility] 10/27/2022 Last Documented On 3 1:05PM ; [facility] The options include close observation WA LK IN PATIENT - NEW PT with ALIZA WALKER [facility] 10/27/2022 Last Documented On 3 1:05PM ; [facility] Watch for signs/symptoms of infection, return to the clinic if seen WALK IN PATIENT - NEW PT with ALIZA WALKER [facility] 10/27/2022 Last Documented On 3 1:05PM ; [facility] Ordered patient will call r appointment as needed WALK-IN CLINIC SICK VISIT with PRABHU BARNES [facility]- 06/15/2018 Last Documented On 9 1:50PM ; [facility] Ordered return to the clinic if condition worsens or new symptoms arise WALK-IN CLINIC SICK VISIT with PRABHU BARNES [facility] 06/15/2018 Last Documented On 9 1:50PM ; [facility] Pt to use prescription as or dered. Purpose of and use of medication discussed. WALK-IN CLINIC SICK VISIT with XENIA RIVERA [facility] 03/24/2017 Last Documented On 7 11:24AM ; [facility] Pt to use prescription as or dered. Purpose of and use of medication discussed. WALK-IN CLINIC SICK VISIT with KOBE Jerome CALVIN [facility] 02/11/2017 Last Documented On 7 10:36AM ; [facility] Go to the emergency room if condition worsens WALK-IN CLINIC SICK VISIT with GERALDO Theodore SUZY [facility] 11/17/2016 Last Documented On 7 3:22PM ; [facility] Medication instruction WALK-IN CLINIC SI CK VISIT with GERALDO E SUZY [facility] 11/17/2016 Last Documented On 7 3:22PM ; [facility] Ordered disposition - Discus sed etiology and course of atopic dermatitis. Discussed limiting bathing and using oily soaps. Also discussed need for lubrication of skin on a regular basis, with intermittent use of topical steroids or topical immune modulator creams WALK-IN CLINIC SICK VISIT with GERALDO E SUZY [facility] 11/17/2016 Last Documented On 7 3:22PM ; [facility] Ordered follow-up visit in 1 -2 weeks with an office visit WALK-IN CLINIC SICK VISIT with GERALDO E SUZY [facility] 11/17/2016 Last Documented On 7 3:22PM ; [facility] Ordered referred to primary care physician WALK-IN CLINIC SICK VISIT with GERALDO Ewelina ALMONTE [facility]- 11/17/2016 Last Documented On 7 3:22PM ; [facility] Ordered return to the clinic if condition worsens or new symptoms arise WALK-IN CLINIC SICK VISIT with GERALDO ALMONTE [facility] 11/17/2016 Last Documented On 7 3:22PM ; [facility] Ordered Transition in care, clinical summary provided WALK-IN CLINIC SICK VISIT with GERALDO ALMONTE [facility] 11/17/2016 Last Documented On 7 3:22PM ; [facility] Watch for signs/symptoms of infection WA LK-IN CLINIC SICK VISIT with GERALDO Ewelina SUZY [facility]- 11/17/2016 Last Documented On 7 3:22PM ; [facility] Go to the emergency room if condition worsens WALK-IN CLINIC SICK VISIT with GERALDO ALMONTE [facility] 05/15/2016 Last Documented On 7 8:31AM ; [facility] Medication instruction WALK-IN CLINIC SI CK VISIT with GERALDO ALMONTE [facility] 05/15/2016 Last Documented On 7 8:31AM ; [facility] Ordered disposition - Discus sed etiology and course of atopic dermatitis. Discussed limiting bathing and using oily soaps. Also discussed need for lubrication of skin on a regular basis, with intermittent use of topical steroids or topical immune modulator creams WALK-IN CLINIC SICK VISIT with GERALDO ALMONTE [facility] 05/15/2016 Last Documented On 7 8:31AM ; [facility] Ordered follow-up visit in 1 -2 weeks with an office visit WALK-IN CLINIC SICK VISIT with GERALDO ALMONTE [facility] 05/15/2016 Last Documented On 7 8:31AM ; [facility] Ordered referred to primary care physician WALK-IN CLINIC SICK VISIT with GERALDO ALMONTE [facility] 05/15/2016 Last Documented On 7 8:31AM ; [facility] Ordered return to the clinic if condition worsens or new symptoms arise WALK-IN CLINIC SICK VISIT with GERALDO ALMONTE [facility] 05/15/2016 Last Documented On 7 8:31AM ; [facility] Ordered Transition in care, clinical summary provided WALK-IN CLINIC SICK VISIT with GERALDO ALMONTE [facility] 05/15/2016 Last Documented On 7 8:31AM ; [facility] Instructions to patient Watch for signs/symptoms of infection, return to the clinic if seen Last Documented On 3 1:02PM ; [facility] Go to the emergency room if condition worsens Last Documented On 7 2:59PM ; [facility] Watch for signs/symptoms of infection Last Documented On 7 3:22PM ; [facility] Watch for signs/symptoms of infection, return to the clinic if seen Last Documented On 7 2:59PM ; [facility] Go to the emergency room if condition worsens Last Documented On 7 7:12PM ; [facility] Watch for signs/symptoms of infection, return to the clinic if seen Last Documented On 7 7:12PM ; [facility] Assessments Includes: Assessments for all patient encounters Findings Encounter Date No influenza -likely DX WALK-IN CLINIC S ICK VISIT with PRABHU BARNES [facility] 06/15/2018 Last Documented On 9 1:50PM ; [facility] Viral syndrome WALK-IN CLINIC SICK VISIT with PRABHU BARNES [facility] 06/15/2018 Last Documented On 9 1:50PM ; [facility] Dermatitis WALK-IN CLINIC SICK VISIT with Adal RIVERA [facility] 03/24/2017 Last Documented On 7 11:24AM ; [facility] Dermatitis WALK-IN CLINIC SICK VISIT with Roxanne SIMPSON [facility]- 02/11/2017 Last Documented On 7 10:36AM ; [facility] Dermatitis WALK-IN CLINIC SICK VISIT with Adal ALMONTE [facility]- 11/17/2016 Last Documented On 7 3:22PM ; [facility] Dermatitis WALK-IN CLINIC SICK VISIT with Adal ALMONTE [facility]- 05/15/2016 Last Documented On 7 8:31AM ; [facility] Instructions Includes: Instructions for all patient encounters Instructions to patient Watch for signs/symptoms of infection, return to the clinic if seen Last Documented On 3 1:02PM ; [facility] Go to the emergency room if condition worsens Last Documented On 7 2:59PM ; [facility] Watch for signs/symptoms of infection Last Documented On 7 3:22PM ; [facility] Watch for signs/symptoms of infection, return to the clinic if seen Last Documented On 7 2:59PM ; [facility] Go to the emergency room if condition worsens Last Documented On 7 7:12PM ; [facility] Watch for signs/symptoms of infection, return to the clinic if seen Last Documented On 7 7:12PM ; [facility] Medical Equipment - Implanted Devices Includes: Current and historical Devices No Medical Equipment Recorded Medications Includes: Current and historical Medications Current Medications (continue as prescribed) Furosemide 20 MG Oral Tablet 10/22/2022 Provider: Diagnosis: Last Documented On 10/27/2022 11:43AM By Emma Jalloh MA ; [facility] BuPROPion HCl 75MG Oral Tablet 11/17/2016 Provider: Diagnosis: Last Documented On 11/17/2016 2:58PM By SRIDHAR PÉREZ ; [facility] FLUoxetine HCl 10MG Oral Tablet 11/17/2016 Provider: Diagnosis: Last Documented On 11/17/2016 2:57PM By SRIDHAR PÉREZ ; [facility] ClonazePAM 1MG Oral Tablet 11/17/2016 Provider: Diagnosis: Last Documented On 11/17/2016 2:57PM By SRIDHAR PÉREZ ; [facility] Past Medications on file predniSONE 10 MG Oral Tablet 10/27/2022 - 11/04/2022 Provider: ALIZA GRACIA-C Diagnosis: Allergic contact dermatitis due to other agents take 4 tablets x2 days, then 3 tablets x2 days, then 2 tablets x2days then 1 tablet x2 days then stop. Last Documented On 10/27/2022 12:04PM By Aliza GRACIA ; [facility] Triamcinolone Acetonide 0.1% External Cream 03/24/2017 - 06/15/2018 Provider: XENIA PEARL Diagnosis: Dermatitis, unspecified Apply twice a day Last Documented On 9 1:29PM By PRABHU BARNES [facility] ; [facility] PredniSONE 20MG Oral Tablet 03/24/2017 - 06/15/2018 Provider: XENIA PEARL Diagnosis: Dermatitis, unspecified as directed 2 tab po qd x 4 then 1 tab po qd x 4 Last Documented On 9 1:29PM By PRABHU GRACIA-LEEANNE ; [facility] PredniSONE 20MG Oral Tablet 02/11/2017 - 03/24/2017 Provider: KOBE COXP-BC Diagnosis: Dermatitis, unspecified 1 tab three times daily for 3 days, then 1 tab twice daily for 2 days, then 1 tab once daily for 2 days Last Documented On 7 11:01AM By BRIANA PÉREZ ; [facility] PredniSONE 10MG Oral Tablet 11/17/2016 - 02/11/2017 Provider: GERALDO COXP-BC Diagnosis: Dermatitis, unsp ecified as directed Last Documented On 7 10:11AM By HUE PÉREZ ; [facility] HydrOXYzine Pamoate 25MG Oral Capsule 11/17/2016 - 02/11/2017 Provider: GERALDO ALMONTE [facility] Diagnosis: Dermatitis, unspecified 1 every 6 hours as needed Last Documented On 7 10:11AM By HUE PÉREZ ; [facility] PredniSONE 10 MG Tablet 05/15/2016 - 11/17/2016 Provider: GERALDO ALMONTE [facility] Diagnosis: Allergic contact dermatitis, unspecified cause as directed- start in two days if needed Last Documented On 7 3:00PM By GERALDO ALMONTE [facility] ; [facility] Medications Administered Includes: Administered Medications in patient's chart Medications Administered Diagnosis Date Pro vider DEPO-Medrol 80 MG/ML IJ SUSP 03/24/2017 XENIA RIVERA [facility] Last Documented On 7 11:19AM By BRIANA PÉREZ ; [facility] DEPO-Medrol 80 MG/ML IJ SUSP 02/11/2017 KOBE SIMPSON [facility] Last Documented On 7 10:25AM By HUE PÉREZ ; [facility] DEPO-Medrol 80 MG/ML IJ SUSP 11/17/2016 GERALDO ALMONTE [facility] Last Documented On 7 3:18PM By SRIDHAR PÉREZ ; [facility] DEPO-Medrol 80 MG/ML IJ SUSP 05/15/2016 GERALDO ALMONTE [facility] Last Documented On 7 7:17PM By HUE PÉREZ ; [facility] Results Includes: Results from 05/23/2023 through 05/23/2024 No Results Recorded For Specified Dates History of Present Illness History of Present Illness not supported for this document type No History of Present Illness Recorded Social History Description Last Updated Tobacco non-user 10/27/2022 Last Documented On 3 1:05PM ; [facility] Smoking status : Never smoker 11/17/2016 Last Documented On 7 3:22PM ; [facility] Medical History Includes: Medical History in patient's chart Description Last Updated Not taking OTC medications 10/27/2022 Last Documented On 3 1:05PM ; [facility] No contact with poison vane 05/15/2016 Last Documented On 7 8:31AM ; [facility] No exposure to chemical liquids 05/15/19 Last Documented On 7 8:31AM ; [facility] No secondhand tobacco smoke in home 04/27 Last Documented On 7 8:31AM ; [facility] Not using a new laundry product 05/15/19 Last Documented On 7 8:31AM ; [facility] Not using a new skin care product 2016 Last Documented On 7 8:31AM ; [facility] Pt does not get blood pressure checked a t other facility 05/15/2016 Last Documented On 7 8:31AM ; [facility] Family History Includes: Family History in patient's chart Description Last Updated Family history unchanged 06/15/2018 Last Documented On 9 1:50PM ; [facility] Review of Systems Review of Systems not supported for this document type No Review of Systems Recorded Mental Status No Mental Status Recorded Functional Status No Functional Status Recorded Physical Exam Physical Exam not supported for this document type No Physical Exam Recorded Allergies Includes: Active, inactive, and resolved Allergies No Known Allergies Insurance Includes: Active Insurance Policies Plan Name Member ID Group # Subscriber Relationship Effect elma Dates 1 - [facility] [id number] NERY PERRIN Se lf Clinical Notes Includes: Signed Clinical Notes starting from 05/16/2022 No Clinical Notes Recorded
--- OUTSIDE RECORDS SUMMARY | 2024-05-23 08:53 | XMS_ITS | Clinical Summary ---
Author Organization [facility] Address [address] [place] [address]. [place], [place] [address] [place] [id number] Care Team Providers Care Rejector Name Role Phone Donaldo Jenkins MD Primary Care Provider [phone] Allergies No known active allergies Medications * This document contains information received from the source organization and may not represent a complete record from that organization. metoprolol succinate ER 50 MG 24 hr tablet Take 1 tablet (50 mg total) by mouth daily. 30 tablet 01/22/2020 Active busPIRone 10 MG tablet Take 2 tablets (20 mg total) by mouth 3 (three) times daily with meals. 90 tablet 02/22/2020 Active cloNIDine 0.1 MG tablet Take 0.5 tablets (0.05 mg total) by mouth 4 (four) times daily with meals and nightly. 60 tablet 02/22/2020 Active carBAMazepine 100 MG chewable tablet Chew 4 tablets (400 mg total) by mouth nightly at bedtime. 120 tablet 02/22/2020 Active QUEtiapine 100 MG tablet Take 1 tablet (100 mg total) by mouth nightly at bedtime. 60 tablet 02/22/2020 Active escitalopram 20 MG tablet Take 1 tablet (20 mg total) by mouth daily. 30 tablet 02/23/2020 Active Active Problems Problem Noted Date Diagnosed Date MDD (major depressive disorder) 02/15/2020 Major depression 01/10/2020 Immunizations Name Administration Dates Next Due Fluzone 6 Months+ Quad (0.5 mL Prefilled Syringe ) 01/21/2020 Family History Medical History Relation Comments Depression Father Depression Mother Relation Status Comments Father Alive Mother Alive Social History Tobacco Use Types Packs/Day Years Used Date Smoking Tobacco: Never Smokeless Tobacco: Never Alcohol Use Standard Drinks/Week Comments No 0 (1 standard drink = 0.6 oz pur e alcohol) Humiliation, Afraid, Rape, and Kick questionnair e Answer Date Recorded Within the last year, have y ou been afraid of your partner or ex-partner? No 01/11/2020 Within the last year, have y ou been humiliated or emotionally abused in other ways by your partner or ex-partner? No Within the last year, have y ou been kicked, hit, slapped, or otherwise physically hurt by your partner or ex-partner? No 01/11/2020 Within the last year, have y ou been raped or forced to have any kind of sexual activity by your partner or ex-partner? No 01/11/2020 Social Connection and Isolat ion Panel [NHANES] Answer Date Recorded In a typical week, how many times do you talk on the phone with family, friends, or neighbors? More than three times a week 01/11/2020 How often do you get togethe r with friends or relatives? Three times a week 01/11/2020 How often do you attend chur ch or mosque services? 1 to 4 times per year 01/11/2020 Active Member of Clubs or Organizations Not on f ile 01/11/2020 How often do you attend meet ings of the clubs or organizations you belong to? 1 to 4 times per year 01/11/2020 Are you , , di vorced, , never , or living with a partner? 01/11/2020 AUDIT-C Answer Date Recorded Frequency of Alcohol Consumption Never 02/28/2019 Average Number of Drinks Not on file 019 Frequency of Binge Drinking Not on file 07/2018 Overall Financial Resource Strain (CARDIA) Answe r Date Recorded How hard is it for you to pa y for the very basics like food, housing, medical care, and heating? Not hard at all 01/11/2020 [facility] [place] [facility] Occupat ional Health - Occupational Stress Questionnaire Answer Date Recorded Do you feel stress - tense, restless, nervous, or anxious, or unable to sleep at night because your mind is troubled all the time - these days? Rather much 01/11/2020 Exercise Vital Sign Answer Date Recorde d On average, how many days pe r week do you engage in moderate to strenuous exercise (like a brisk walk)? 1 day Minutes of Exercise per Session Not on file 01/11/2020 Hunger Vital Sign Answer Date Recorded Within the past 12 months, y ou worried that your food would run out before you got the money to buy more. Never true 01/11/20 20 Ran Out of Food in the Last Year Not on file 01/11/2020 PRAPARE - Transportation Answer Date Re corded In the past 12 months, has l ack of transportation kept you from medical appointments or from getting medications? No 12/26 In the past 12 months, has l ack of transportation kept you from meetings, work, or from getting things needed for daily living? No 01/11/2020 Sex and Gender Information Value Date Recorded Sex Assigned at Male 01/11/2020 1:12 AM CDT Legal Sex Male 11:25 PM [employer] Gender Identity Male 01/11/2020 1:12 AM CDT Sexual Orientation Straight 01/11/2020 1: 12 AM CDT Last Filed Vital Signs Vital Sign Reading Time Taken Comments Blood Pressure 120/74 02/21/2020 8:49 PM CDT Pulse 98 02/21/2020 8:49 PM CDT Temperature 38.4 ??C (101.1 ??F) 02/22/2020 7:42 AM C DT Respiratory Rate 18 02/21/2020 7:00 AM CDT Oxygen Saturation 99% 02/21/2020 8:49 PM CDT Inhaled Oxygen Concentration - - Weight 129.3 kg (285 lb) 02/15/2020 9:00 AM CDT Height 185.4 cm (6' 1 ) 02/15/2020 9:00 AM CDT Body Mass Index 37.6 02/15/2020 9:00 AM CDT Plan of Treatment Health Maintenance Due Date Last Done Comments Annual Physical 1985 DTaP, Tdap and Td Vaccines (1 - Tdap) 2001 12/07/1987, 12/20/1984, 10/01/1983, Additional history exists Hepatitis B Vaccines (1 of 3 - 19+ 3-dose series) 2001 COVID-19 Vaccine ( - season) 2023 Influenza Adult (#1) 2024 01/21/2020 Hepatitis C Completed 11/12/2016 HPV Vaccines Aged Out No longer eligi ble based on patient's age to complete this topic Meningococcal B Vaccine Aged Out No l onger eligible based on patient's age to complete this topic Meningococcal Vaccine Aged Out No jeramie breann eligible based on patient's age to complete this topic Pneumococcal Vaccine: Pediatrics (0 to 5 Years) and At-Risk Patients (6 to 64 Years) Aged Out No longer eligible based on patient's age to complete this topic RSV Immunizations Under 20 Months Aged Out No longer eligible based on patient's age to complete this topic Procedures Procedure Name Priority Date/Time Associated Diagnosis Comments HEPATITIS PANEL,ACUTE Routine 11/12/2016 8:00 AM CDT from Last 3 Months or Most Recently Relevant to Health Maintenance Results * HEPATITIS PANEL,ACUTE (11/12/2016 8:00 AM CDT) HEPATITIS B SURFACE AG NON-REACTI VE NON-REACT JAISON 11/13/2016 9:05 AM CDT [facility] Comment:HBsAg NOT DETECTED. HEP B CORE IGM NON-REACTI VE NON-REACT JAISON 11/13/2016 9:05 AM CDT [facility] Comment: IgM ANTI HBc NOT DETECTED. DOES NOT EXCLUDE THE POSSIBILITY OF EXPOSURE TO OR INFECTION WITH HBV. NO RETEST REQUIRED. HAV IGM NON-REACTI VE NON-REACT JAISON 11/13/2016 9:05 AM CDT [facility] Comment: IgM ANTI HAV NOT DETECTED. DOES NOT EXCLUDE THE POSSIBILITY OF EXPOSURE TO OR INFECTION WITH HAV. LEVELS OF IgM ANTI HAV MAY BE BELOW THE CUTOFF IN EARLY INFECTION. HEPATITIS C AB NON-REACTI VE NON-REACT JAISON 11/13/2016 9:05 AM CDT [facility] Comment: ANTIBODIES TO HCV NOT DETECTED. DOES NOT EXCLUDE THE POSSIBILITY OF EXPOSURE TO HCV. 11/12/2016 8:00 AM CDT 11/12/2016 8:03 AM CDT us Generic Conversion Md [facility] Final R esult [facility] [address] [place] [id number], [id number] from Last 3 Months or Most Recently Relevant to Health Maintenance Insurance [facility] Advance Directives * Full Code (Latest Code Status on File) Date Activated Date Inactivated Comments 02/15/2020 10:36 AM 02/22/2020 5:06 PM * Full Code Date Activated Date Inactivated Comments 01/10/2020 8:45 PM 01/16/2020 4:06 PM Care Teams Rejector Relationship Specialty Start Date End Date Donaldo Jenkins MD [facility] [facility] [place] [address] PCP - General FAMILY PRACTICE 02/15/19
--- OUTSIDE RECORDS SUMMARY | 2024-05-23 08:53 | XMS_ITS | Clinical Summary ---
Author Organization [address] lt Address [address] [place] [address] Care Team Providers Care Warehouseman Name Role Phone Radha Peck MD Unavailable [phone] Amber Queen NP Primary Care Provider Allergies No known active allergies Medications venlafaxine XR (EFFEXOR-XR) 75 mg 24 hr capsule TK 1 C PO D 0 9 Active clonazePAM (KlonoPIN) 0.5 mg tablet TK 1 T PO BID PRF ANXIETY 0 9 Active syringe with needle 3 mL 21 gauge x 1 1/2 syringe BD Integra Syringe 3 mL 21 gauge x 1 1/2 DIRECTED Active busPIRone (BUSPAR) 10 mg tablet buspirone 10 mg tablet TAKE 2 TABLETS BY MOUTH THREE TIMES DAILY 0 Active escitalopram (LEXAPRO) 20 mg tablet escitalopram 20 mg tablet TAKE 1 TABLET BY MOUTH EVERY MORNING 0 Active metFORMIN XR (GLUCOPHAGE XR) 750 mg 24 hr tablet metformin ER 750 mg tablet,extended release 24 hr Active albuterol HFA (ProAir HFA) 90 mcg/actuation inhalerIndicati ons:Cough with exposure to COVID-19 virus Inhale 2 puffs every 4 (four) hours as needed for wheezing or shortness of breath 8.5 g 1 Active metoprolol XL (TOPROL-XL) 50 mg extended release tablet Take 1 tablet (50 mg total) by mouth daily Active insulin glargine 100 unit/mL (3 mL) pen for injection Inject 15 Units under the skin daily Active Active Problems Problem Noted Date Diagnosed Date Adhesive capsulitis of right shoulder 01/08/2024 Hypertension 08/26/2022 Type 2 diabetes mellitus 08/26/2022 Depression 08/26/2022 Anxiety 08/26/2022 COPD (chronic obstructive pulmonary disease) 05/2022 UTI (urinary tract infection) with pyuria 2022 Abscess of scrotum 08/25/2022 Encounters Date Type Department Care Team Description 03/11/2024 11:15 AM HOT CELL TECHNICIAN Office Visit [facility] [address] [place] [phone] Rosales Huynh MD Impingement syndrome of right shoulder (Primary Dx); Superior glenoid labrum lesion of right shoulder, initial encounter; Arthritis of right acromioclavicular joint; Type 2 diabetes mellitus with other diabetic arthropathy, without long-term current use of insulin ([facility]) 03/11/2024 Orders Only [facility] Care at [address] [phone] Rosales Huynh MD Adhesive bursitis of right shoulder (Primary Dx) 03/11/2024 Telephone [facility] at [address] [phone] Rosales Huynh MD Surgery Clearance 03/04/2024 10:00 AM HOT CELL TECHNICIAN Office Visit [facility] [address] [place] [address] [address], [place] [phone] Kia Ruiz PA Arthritis of right acromioclavicular joint (Primary Dx); Biceps tendinitis of right upper extremity; Subacromial impingement of right shoulder; Tear of right glenoid labrum, initial encounter 02/29/2024 10:20 AM HOT CELL TECHNICIAN Lab [facility] [address] [place] [phone] Pre-op testing 02/23/2024 Orders Only [facility] [address] [facility] [address] [place] [address] Rosales Huynh MD Pre-op testing (Primary Dx) from Last 3 Months Surgical History Surgery Date Site/Laterality Comments NO PAST SURGERIES Medical History Medical History Date Comments Anxiety Depression Type 2 diabetes mellitus (HCC) Social History Tobacco Use Types Packs/Day Years Used Date Smoking Tobacco: Never Smokeless Tobacco: Never Tobacco Cessation:Counseling Given: Not Answered Alcohol Use Standard Drinks/Week Comments Not Currently 0 (1 standard drink = 0.6 oz pur e alcohol) AUDIT-C Answer Date Recorded Q1: How often do you have a drink containing alcohol? Never 01/08/2024 Q2: How many drinks containi ng alcohol do you have on a typical day when you are drinking? Patient does not drink Q3: How often do you have si x or more drinks on one occasion? Never 01/08/2024 Personal Safety Answer Date Recorded Have you ever been in or are you currently in a harmful physical or emotional relationship or is someone making you feel afraid or unsafe? Denies 08/25/2022 Sex and Gender Information Value Date Recorded Sex Assigned at Not on file Legal Sex Male 9:02 AM HOT CELL TECHNICIAN Gender Identity Not on file Sexual Orientation Not on file Obstetrics History Last Filed Vital Signs Vital Sign Reading Time Taken Comments Blood Pressure 115/80 03/11/2024 10:53 AM HOT CELL TECHNICIAN Pulse 83 03/11/2024 10:53 AM HOT CELL TECHNICIAN Temperature 36.8 ??C (98.2 ??F) 09/01/2022 7:31 AM CD T Respiratory Rate 18 01/08/2024 10:5 6 AM CDT Oxygen Saturation 100% 09/01/2022 7:31 AM CDT Inhaled Oxygen Concentration - - Weight 123.7 kg (272 lb 9.6 oz) 024 10:53 AM HOT CELL TECHNICIAN Height 185.4 cm (6' 1 ) 03/11/2024 10:5 3 AM HOT CELL TECHNICIAN Body Mass Index 35.97 03/11/2024 10:53 AM HOT CELL TECHNICIAN Plan of Treatment Health Maintenance Due Date Last Done Comments Albumin Creatinine Ratio, Urine 1982 Depression Screening 1982 Hepatitis C Screening 1982 Dilated Eye Exam 1982 Foot Exam 1982 Lipid Panel 1982 Pneumococcal vaccine <65 (1 of 2 - PCV) 1988 Varicella Vaccines (1 of 2 - 13+ 2-dose series) 1995 DTaP/Tdap/Td Vaccine (6 - Tdap) 01/10/1997 01/09/1997, 12/07/1987, 12/20/1984, Additional history exists Regular Well Visit/Exam 18-64 2000 eGFR 08/31/2023 08/30/2022, 05/0 08/2022, 08/28/2022, Additional history exists Influenza Vaccine (#1) 2023 , 02/09/2019, 02/11/2018, Additional history exists Hemoglobin A1C 08/28/2024 02/29/2024, 08/28/2022 HPV Vaccines Aged Out No longer eligi ble based on patient's age to complete this topic Procedures Procedure Name Priority Date/Time Associated Diagnosis Comments HEMOGLOBIN A1C Routine 02/29/2024 10:19 AM HOT CELL TECHNICIAN Pre-op testing EGFR Routine 08/30/2022 5:57 AM CDT from Last 3 Months or Most Recently Relevant to Health Maintenance Results * Hemoglobin A1c (02/29/2024 10:19 AM HOT CELL TECHNICIAN) Hgb A1C 5.5 4.0 - 5.6 % Comment:Testing performed by : [facility], [address] [place] [address], [place]., [address] Estimated Average Glucose 111 mg/dL JUNG MATTHEW (SAMUEL) Comment: The ADA recommends reporting an estimated Average Glucose (eAG) with all Hemoglobin A1c results using the equation derived from a study of 507 normal and diabetic adults. ??Minority populations were underrepresented and children were not included. ?? (Diabetes Care 31:5577-6255, 2008). ??The eAG is not equivalent to a fasting glucose. Testing performed by: [facility], [address] [place] [address], [place]., [address] Blood 02/29/2024 10:1 9 AM HOT CELL TECHNICIAN 02/29/2024 1:23 PM HOT CELL TECHNICIAN us Rosales Huynh MD LAB BLOOD ORDERABLES Final R esult Performing Organization Address City/[facility]/ZIP Co de Phone Number JUNG MATTHEW (WARREN) [address] [facility] [place] [address] * eGFR (08/30/2022 5:57 AM CDT) eGFR 113 mL/min/1. 73 m2 JUNG MATTHEW (WARREN) Comment: Interpretive Data Reference Interval Normal ?>/= 90 mL/min/1.73m2 Mildly decreased* ? 60 - 89 mL/min/1.73m2 Mildly to moderately decreased ?45 - 59 mL/min/1.73m2 Moderately to severely decreased ??30 - 44 mL/min/1.73m2 Severely decreased ?15 - 29 mL/min/1.73m2 Kidney Failure ?< 15 ??mL/min/1.73m2 *Relative to young adult level Estimated glomerular filtration rate is determined by the 2020 CKD-EPI equation recommended by the National Kidney Foundation (A Unifying Approach to GFR Estimation: Recommendations of the NKF-ASK Task Force on Reassessing the Inclusion of Race in Diagnosing Kidney Disease, JASN 2020). The CKD-EPI equation should not be used for patients with unstable renal function and has not been validated in children and those over 70. Current interpretive data was last reviewed 2021. Blood 08/30/2022 5:57 AM CDT 08/30/2022 5:57 AM CDT us Corrine Melvin MD LAB BLOOD ORDERABLES Fi nal Result Performing Organization Address City/[facility]/ZIP Co de Phone Number JUNG MATTHEW ([place]) [address] [facility] [place] [address] from Last 3 Months or Most Recently Relevant to Health Maintenance Insurance [employer] [facility] CHO[facility] PLUS [facility] PLUS Advance Directives For more information, please contact: [phone] * Full Code (Latest Code Status on File) Date Activated Date Inactivated Comments 08/25/2022 10:11 PM 09/01/2022 2:21 PM * Full Code Date Activated Date Inactivated Comments 08/25/2022 4:15 PM 08/25/2022 10:11 PM Care Teams Warehouseman Relationship Specialty Start Date End Date Amber Queen NP [address] [place] [id number] PCP - General Nurse Practitioner 05/18/24 [place] [address] [place] [address] Consulting Physician Urology 08/31/22
--- OUTSIDE RECORDS SUMMARY | 2024-05-23 08:53 | XMS_ITS | Clinical Summary ---
Author Organization [facility] Address [address] [place] [address] Phone Care Team Providers Care Mincing Machine Operator Name Role Phone SLOAN ABRAHAM DO [phone] Reason for Visit and Chief Complaint The Chief Complaint is: Pt c/o stomach and bodyaches that started yesterday. Pt's has flu. Pt had flu shot Problems Includes: Problems addressed during this encounter and other active Problems No Active Problems Plan of Treatment - Return to the clinic if condition worsens or new symptoms arise - Last Documented On 06/15/2018 1:50PM ; [facility] - Patient will call for appointment as needed - Last Documented On 06/15/2018 1:50PM ; [facility] Assessments Includes: Assessments from this encounter Findings - [B34.9 - Viral infection, unspecified] Viral syndrome - Last Documented On 06/15/2018 1:50PM ; [facility] - No influenza -likely DX - Last Documented On 06/15/2018 1:50PM ; [facility] Medical Equipment - Implanted Devices Includes: Current Devices No Medical Equipment Recorded Medications Includes: Medications discussed during this encounter and other current Medications Discontinued / Stopped on this date XENIA PEARL on 03/24/2017 Triamcinolone Acetonide 0.1% External Cream Provider: XENIA PEARL Diagnosis: Dermatitis, unsp ecified Last Documented On 9 1:29PM By PRABHU WILLIAMSON ; [facility] PredniSONE 20MG Oral Tablet Provider: XENIA Gonsalez NP-C Diagnosis: Dermatitis, unsp ecified Last Documented On 9 1:29PM By PRABHU WILLIAMSON ; [facility] Current Medications (continue as prescribed) Furosemide 20 MG Oral Tablet 10/22/2022 Provider: Diagnosis: Last Documented On 10/27/2022 11:43AM By Emma Jalloh MA ; [facility] BuPROPion HCl 75MG Oral Tablet 11/17/2016 Provider: Diagnosis: Last Documented On 11/17/2016 2:58PM By SRIDHAR PÉREZ ; [facility] FLUoxetine HCl 10MG Oral Tablet 11/17/2016 Provider: Diagnosis: Last Documented On 11/17/2016 2:57PM By SRIDHAR PÉREZ ; [facility] ClonazePAM 1MG Oral Tablet 11/17/2016 Provider: Diagnosis: Last Documented On 11/17/2016 2:57PM By SRIDHAR PÉREZ ; [facility] Past Medications on file predniSONE 10 MG Oral Tablet 10/27/2022 - 11/04/2022 Provider: EREN PEARL Diagnosis: Allergic contact dermatitis due to other agents take 4 tablets x2 days, then 3 tablets x2 days, then 2 tablets x2days then 1 tablet x2 days then stop. Last Documented On 10/27/2022 12:04PM By Eren GRACIA ; [facility] Medications Administered Includes: Administered Medications from this encounter No Administered Medications Recorded Vital Signs Includes: Vital Signs from this encounter Vital Name 06/15/2018 01:23P Blood Pressure Sitting R 124/82 BP Cuff Size Large Pulse Rate-Sitting (bpm) 82 Respiration Rate (breaths/min) 22 Temp-Oral (F) 98.5 Weight (lb) 309 Last Documented: On 06/15/2018 1:24PM ; [facility] Results Includes: Results discussed during this encounter Influenza A/B [facility] Ordered by PRABHU BARNES PMOLIVERIOP- [facility]- on 06/15/2018 Collected: Reported: 06/15/2018 13:41 Last Documented On 9 1:41PM ; [facility] Reviewed on 06/15/2018; All test results are final unless otherwise noted. Influenza A NEG N (Normal) Last Documented On 9 1:41PM ; [facility] Influenza B NEG N (Normal) Last Documented On 9 1:41PM ; [facility] INT. QC ACCEPTABLE? YES N (Normal) Last Documented On 9 1:41PM ; [facility] LOT # & EXP. DATE [id number] 05/27/19 N (Normal) Last Documented On 9 1:41PM ; [facility] History of Present Illness Includes: History of Present Illness from this encounter HPI NERY PERRIN is a 38 year old male. - Medication list reviewed with patient. - Chills - Duration of symptoms for 2 days - Previously well - No fever - No headache - No sinus pain - No sinus pressure - No swollen glands in the neck - No itching of the eyes - No discharge from the eyes - No earache - The ears do not feel pressured - The ears do not feel full - No discharge from the ears - No nasal discharge - No postnasal drip - No nasal passage blockage (stuffiness) - No sneezing - No hoarseness - No sore throat - No itchy throat - No chest pain or discomfort - No palpitations - Not feeling congested in the chest - No dyspnea - No cough - No wheezing - Nausea - Abdominal pain =feels upset - Normal appetite - No vomiting - No diarrhea - No oliguria - No rash dx yesterday with influenza A. His s/s started yesterday. No OTC meds. Social History Description Last Updated Smoking status : Never smoker 11/17/2016 Last Documented On 9 1:23PM ; [facility] Procedures and Surgical History Includes: Procedures from this encounter Procedures Code Diagnosis Performing Provider Service L ocation Service Date patient to call if symptoms worsen or not improved in 5-7 days to update patient's status Last Documented On 9 1:28PM ; [facility] Patient verbalizes understanding Last Documented On 9 1:28PM ; [facility] Clinical summary provided to patient Last Documented On 9 1:28PM ; [facility] Medical History Includes: Medical History addressed during this encounter Description Last Updated No contact with poison vane 05/15/2016 Last Documented On 9 1:23PM ; [facility] No exposure to chemical liquids 05/15/19 17 Last Documented On 9 1:23PM ; [facility] No secondhand tobacco smoke in home 04/27 Last Documented On 9 1:23PM ; [facility] Not using a new laundry product 05/15/19 Last Documented On 9 1:23PM ; [facility] Not using a new skin care product 2016 Last Documented On 9 1:23PM ; [facility] Pt does not get blood pressure checked a t other facility 05/15/2016 Last Documented On 9 1:23PM ; [facility] Family History Includes: Family History addressed during this encounter Description Last Updated Family history unchanged 06/15/2018 Last Documented On 9 1:50PM ; [facility] Review of Systems Includes: Review of Systems from this encounter Systemic: No edema. Head: No headache. Cardiovascular: No chest pain or discomfort. Pulmonary: No shortness of breath. Neurological: No dizziness. Mental Status Includes: Mental Status from this encounter Description Oriented to time, place, and person Functional Status Includes: Functional Status from this encounter No Functional Status Recorded Physical Exam Includes: Physical Exam from this encounter Allergies Includes: Active Allergies No Known Allergies Encounters Encounter Provider Location Date Check-In Time Check-Out Time Diagnosis WALK-IN CLINIC SICK VISIT PRABHU BARNES PMHNP-BC [facility] 06/15/19 1:15PM 1:39PM Influenza,Vir al Syndrome Insurance Includes: Active Insurance Policies Plan Name Member ID Group # Subscriber Relationship Effect [place] Dates 1 - [facility] [id number] NERY PERRIN Se lf Clinical Notes Includes: Clinical Notes from this encounter No Clinical Notes Recorded
--- OUTSIDE RECORDS SUMMARY | 2024-05-23 08:53 | XMS_ITS | Patient Health Summary ---
Author Organization [facility] Address [address] [place] [address] Care Team Providers Care Adult Family Home Program Manager Name Role Phone Donaldo Jenkins MD Primary Care Provider Note from [facility],non-owned Affiliates and Associated Physician Practices is amultiple site organization consisting of ambulatory clinics and hospital sitesin [place], [place], [place] and [place]. This disclosure is being madepursuant to the Care Everywhere program and may not contain all information available regarding this patient. Last updated 18.[facility] Allergies No known active allergies Medications * Be aware that medications may not be up to date on this document. Alwaysverify current medications with the patient. * FLUoxetine (PROZAC) 40 MG capsule(Started 10/22/2016) 2 capsules DAILY. * clonazePAM (KLONOPIN) 1 MG tablet(Started 10/22/2016) 1 tablet BID. * buPROPion SR 12hr (WELLBUTRIN-SR) 150 MG tablet(Started 10/22/2016) 1 tablet DAILY. Active Problems Problem Noted Date Diagnosed Date Major depressive disorder, single episode 2016 Abnormal levels of other serum enzymes 7 Obesity 12/15/2016 Nonalcoholic steatohepatitis (MYERS) 12/15/2016 Social History Tobacco Use Types Packs/Day Years Used Date Smoking Tobacco: Never Smokeless Tobacco: Never Alcohol Use Standard Drinks/Week Comments No 0 (1 standard drink = 0.6 oz pur e alcohol) Sex and Gender Information Value Date Recorded Sex Assigned at Not on file Gender Identity Not on file Sexual Orientation Not on file Last Filed Vital Signs Vital Sign Reading Time Taken Comments Blood Pressure 138/81 02/28/2019 10:55 AM CUSTOMER SERVICE AGENT Pulse 78 02/28/2019 10:55 AM CUSTOMER SERVICE AGENT Temperature 36.7 ??C (98 ??F) 02/28/2019 10:55 AM CUSTOMER SERVICE AGENT Respiratory Rate 18 02/28/2019 10:55 AM CUSTOMER SERVICE AGENT Oxygen Saturation 100% 02/28/2019 10:55 AM CUSTOMER SERVICE AGENT Inhaled Oxygen Concentration - - Weight 145.2 kg (320 lb) 02/28/2019 10:55 AM CUSTOMER SERVICE AGENT Height 182.9 cm (6') 02/28/2019 10:55 AM CUSTOMER SERVICE AGENT Body Mass Index 43.4 02/28/2019 10:55 AM CUSTOMER SERVICE AGENT Procedures * [id number] BLOOD PHENOTYPING PANEL(Performed 12/15/2016) * SUZY BLOOD SCREEN(Performed 12/15/2016) * SMOOTH MUSCLE ANTIBODY(Performed 12/15/2016) * MITOCHONDRIAL ANTIBODY SCREEN(Performed 12/15/2016) * MICROSOMAL ANTIBODY LIVER/KIDNEY(Performed 12/15/2016) * CERULOPLASMIN(Performed 12/15/2016) * FERRITIN(Performed 12/15/2016) * COMPREHENSIVE METABOLIC PANEL(Performed 12/15/2016) * GGT(Performed 12/15/2016) * CBC W AUTO DIFFERENTIAL(Performed 12/15/2016) * SUZY BLOOD SCREEN W/REFLEX TITER(Performed 12/15/2016) * CBC W AUTO DIFFERENTIAL(Performed 12/15/2016) Results * (ABNORMAL) SUZY BLOOD SCREEN (12/15/2016 4:25 PM CDT) SUZY Positive(A ) None Detected [facility] Venous blood specimen (specimen) 12/15/2016 4:25 PM CDT 12/15/2016 4:36 PM CDT Gianni Dalal MD LAB - CHEMISTRY [facility] [address] [phone] * MITOCHONDRIAL ANTIBODY SCREEN (12/15/2016 4:25 PM CDT) Mitochondrial M2 Antibody 4.3 0.0 - 20.0 Units [facility] Comment: Mitochondrial M2 Antibody Numeric Result Interpretation: ?<20.1 Units: ??Negative ?20.1 - 24.9 Units: ??Equivocal ?>24.9 Units: ??Positive ? Blood specimen (specimen) BLOOD SPECIMEN / Unknown 12/15/2016 4:25 PM CDT 12/15/2016 4:37 PM CDT Gianni Dalal MD LAB - CHEMISTRY [facility] Performing Organization Address City/State/[facility] Co de Phone Number [address] [phone] * [id number] BLOOD PHENOTYPING PANEL (12/15/2016 4:25 PM CDT) Zknmg-4-Jzhwbjrgvx n 145 90 - 200 mg/dL [facility] ([place]) Phenotype (PI) MM [facility] Comment: ? Phenotype ?? Population ?A-1-AT Concentration ? Incidence % ?Reference Interval ? MM ?86.5% ?96 - 189 ? MS ? 8.0% ?83 - 161 ? MZ ? 3.9% ?60 - 111 ? FM ? 0.4% ?93 - 191 ? SZ ? 0.3% ?42 - ??75 ? SS ? 0.1% ?62 - 119 ? ZZ ? 0.05% ? 16 - ??38 ? FS ? 0.05% ? 70 - 128 ? FZ ?Unknown ?44 - ??88 ? FF ?Unknown ?Unknown Blood specimen (specimen) BLOOD SPECIMEN / Unknown 12/15/2016 4:25 PM CDT 12/15/2016 4:[address] [facility] ([place]) - 12/19/2016 1:10 PM CDT Performed at: ??01 - [facility] ??[id number] Hospital Receiving Clerk: Bret Espinoza PhD, Phone: ??[phone] Performed at: ??02 - [facility] [address] ??[id number] Hospital Receiving Clerk: Flynn Lewis MD, Phone: ??[phone] Gianni Dalal MD LAB - CHEMISTRY [facility] Performing Organization Address City/State/[facility] Co de Phone Number [facility] ([place] * MICROSOMAL ANTIBODY LIVER/KIDNEY (12/15/2016 4:25 PM CDT) Liver-Kidney Microsomal Antibody <1.0 0.0 - 20.0 Units [facility] Comment: ?Negative ?0.0 - 20.0 ?Equivocal ??20.1 - 24.9 ?Positive ? >24.9 LKM type 1 antibodies are detected in patients with autoimmune hepatitis type 2 and in up to 8% of patients with chronic HCV infection. Blood specimen (specimen) BLOOD SPECIMEN / Unknown 12/15/2016 4:25 PM CDT 12/15/2016 4:36 PM CDT Narrative [facility] ([place]) - 12/16/2016 3:13 PM CDT Performed at: ??01 - [address] ??[id number] Hospital Receiving Clerk: Bret Espinoza PhD, Phone: ??[phone] Gianni Dalal MD LAB - CHEMISTRY [facility] Performing Organization Address [facility] Co de Phone Number [facility] ([place] * CERULOPLASMIN (12/15/2016 4:25 PM CDT) Ceruloplasmin 29 20 - 60 mg/dL [facility] Blood specimen (specimen) BLOOD SPECIMEN / Unknown 12/15/2016 4:25 PM CDT 12/15/2016 4:36 PM CDT Gianni Dalal MD LAB - CHEMISTRY [facility] Performing Organization Address [facility] de Phone Number [address] [phone] * SMOOTH MUSCLE ANTIBODY (12/15/2016 4:25 PM CDT) F-Actin Antibody IgG 8.1 0.0 - 19.9 Units [facility] Comment: F-Actin Antibody Numeric Result Interpretation: ?<20.0 Units: ??Negative ?20.0 - 30.0 Units: ??Weak Positive ?>30.0 Units: ??Moderate to Strong Positive ? Blood specimen (specimen) BLOOD SPECIMEN / Unknown 12/15/2016 4:25 PM CDT 12/15/2016 4:37 PM CDT Gianni Dalal MD LAB - SEROLOGY ORDER [facility] [address] [phone] * CBC W AUTO DIFFERENTIAL (12/15/2016 4:25 PM CDT) Only the most recent of2 resultswithin the time period is included. WBC 8.6 3.5 - 10.5 10? 3 /uL [facility] RBC 5.20 4.30 - 5.70 10? 6 /uL [facility] Hemoglobin 15.3 13.5 - 17.5 g/dL [facility] Hematocrit 43.7 39.0 - 50.0 % [facility] MCV 84.0 81.0 - 97.0 fL [facility] MCH 29.4 28.0 - 34.0 pg [facility] MCHC 35.0 32.0 - 36.0 g/dL [facility] Platelet Count 257 150 - 400 10? 3 /uL [facility] RDW-SD 38.4 36.0 - 50.0 fL [facility] RDW-CV 12.7 11.2 - 14.8 % [facility] MPV 9.8 9.3 - 12.8 fL [facility] Neutrophils % 65.8 35.0 - 70.0 % [facility] Lymphocytes % 25.3 19.7 - 55.1 % [facility] Monocytes % 7.5 3.0 - 15.0 % [facility] Eosinophils % 0.9 0.0 - 6.0 % [facility] Basophil % 0.5 0.0 - 1.5 % [facility] Neutrophils Absolute 5.7 1.6 - 7.0 10? 3 /uL [facility] Lymphocyte Absolute 2.2 0.8 - 2.9 10? 3 /uL [facility] Monocytes Absolute 0.64 0.14 - 0.66 10? 3 /uL [facility] Eosinophils Absolute 0.08 0.00 - 0.22 10? 3 /uL [facility] Basophils Absolute 0.04 0.00 - 0.06 10? 3 /uL [facility] Immature Granulocytes % 0.2 0.0 - 1.0 % [facility] Blood specimen (specimen) BLOOD SPECIMEN / Unknown 12/15/2016 4:25 PM CDT 12/15/2016 4:36 PM CDT Gianni Dalal MD LAB - HEMATOLOGY ORD ERABLES [facility] [address] [phone] * COMPREHENSIVE METABOLIC PANEL (12/15/2016 4:25 PM CDT) BUN 17 7 - 26 mg/dL [facility] Creatinine 1.0 0.6 - 1.2 mg/dL [facility] Sodium 137 136 - 145 mmol/L [facility] Potassium 3.5 3.5 - 4.5 mmol/L [facility] Chloride 103 98 - 107 mmol/L [facility] CO2 24 22 - 29 mmol/L [facility] Glucose 80 70 - 115 mg/dL [facility] Calcium 9.7 8.4 - 10.2 mg/dL [facility] Protein Total 7.3 6.0 - 8.3 g/dL [facility] Albumin 3.8 3.4 - 5.0 g/dL [facility] Bilirubin Total 1.1 0.2 - 1.2 mg/dL [facility] Alkaline Phosphatase 79 40 - 150 Units/L [facility] ALT 37 0 - 55 Units/L [facility] AST 19 5 - 34 Units/L [facility] Anion Gap 14 8 - 18 [facility] BUN/Creatinine Ratio 17 7 - 23 [facility] Osmolality Calculated 285 270 - 300 mOsm/kg [facility] Albumin/Globulin Ratio 1.1 1.1 - 2.3 [facility] eGFR >60 >60 mL/min/1.7 3 m2 [facility] Blood specimen (specimen) BLOOD SPECIMEN / Unknown 12/15/2016 4:25 PM CDT 12/15/2016 4:36 PM CDT Gianni Dalal MD LAB - CHEMISTRY [facility] Performing Organization Address [facility]/ZIP Co de Phone Number [address] [phone] * GGT (12/15/2016 4:25 PM CDT) GGT 39 9 - 64 Units/L [facility] Blood specimen (specimen) BLOOD SPECIMEN / Unknown 12/15/2016 4:25 PM CDT 12/15/2016 4:36 PM CDT Gianni Dalal MD LAB - CHEMISTRY [facility] Performing Organization Address [facility] Co de Phone Number [address] [phone] * (ABNORMAL) FERRITIN (12/15/2016 4:25 PM CDT) Ferritin 328(H) 22 - 275 ng/mL [facility] Blood specimen (specimen) BLOOD SPECIMEN / Unknown 12/15/2016 4:25 PM CDT 12/15/2016 4:36 PM CDT Gianni Dalal MD LAB - CHEMISTRY [facility] Performing Organization Address [facility] de Phone Number [address] [phone] * SUZY BLOOD SCREEN W/REFLEX TITER (12/15/2016 4:25 PM CDT) SUZY IFA Negative [facility] Comment: ? Negative ?? <1:80 ? Borderline ??1:80 ? Positive ?? >1:80 Venous blood specimen (specimen) BLOOD SPECIMEN / Unknown 12/15/2016 4:25 PM CDT 12/17/2016 1:17 PM CDT Narrative [facility] ([place]) - 12/18/2016 5:11 PM CDT Performed at: ??01 - [facility] [address] ??[id number] Hospital Receiving Clerk: Bret Espinoza PhD, Phone: ??[phone] Gianni Dalal MD LAB - CHEMISTRY [facility] ([place]) Care Teams Adult Family Home Program Manager Relationship Specialty Start Date End Date Donaldo Jenkins MD [address] [place] [address] [place] [phone] PCP - General 11/14/16
--- OUTSIDE RECORDS SUMMARY | 2024-05-23 08:53 | XMS_ITS | Clinical Summary ---
Author Organization [facility] Address [address] [facility] [place] [address] Care Team Providers Care Airset Caster Name Role Phone Donaldo Jenkins MD Primary Care Provider Source Comments [facility],non-owned Affiliates and Associated Physician Practices is amultiple site organization consisting of ambulatory clinics and hospital sitesin [place], [place] and [place]. This disclosure is being madepursuant to the Care Everywhere program and may not contain all information available regarding this patient. Last updated 18.[facility] Allergies No known active allergies Medications * Be aware that medications may not be up to date on this document. Alwaysverify current medications with the patient. Medication Sig Dispensed Refills Start Date End Date Status FLUoxetine (PROZAC) 40 MG capsule 2 capsules DAILY. 10/22/2016 Active clonazePAM (KLONOPIN) 1 MG tablet 1 tablet BID. 10/22/2016 Active buPROPion SR 12hr (WELLBUTRIN-SR) 150 MG tablet 1 tablet DAILY. 10/22/2016 Active Active Problems Problem Noted Date Diagnosed [...] Comments Blood Pressure 138/81 02/28/2019 10:55 AM SECRETARY RECEPTIONIST Pulse 78 02/28/2019 10:55 AM SECRETARY RECEPTIONIST Temperature 36.7 ??C (98 ??F) 02/28/2019 10:55 AM SECRETARY RECEPTIONIST Respiratory Rate 18 02/28/2019 10:55 AM SECRETARY RECEPTIONIST Oxygen Saturation 100% 02/28/2019 10:55 AM SECRETARY RECEPTIONIST Inhaled Oxygen Concentration - - Weight 145.2 kg (320 lb) 02/28/2019 10:55 AM SECRETARY RECEPTIONIST Height 182.9 cm (6') 02/28/2019 10:55 AM SECRETARY RECEPTIONIST Body Mass Index 43.4 02/28/2019 10:55 AM SECRETARY RECEPTIONIST Plan of Treatment Health Maintenance Due Date Last Done Comments LIPID TESTING 1982 HIV SCREENING 1997 HEPATITIS C SCREENING 05/04/2000 DTAP/TDAP/TD VACCINES (1 - Tdap) 2001 HEPATITIS B VACCINE (1 of 3 - 19+ 3-dose series) 2001 COVID-19 VACCINE ( - 2023-2 5 season) 2023 INFLUENZA VACCINE (#1) 2023 DEPRESSION SCREENING 04/27/2024 ZOSTER VACCINE (1 of 2) 2032 HIB VACCINE Aged Out No longer eligi ble based on patient's age to complete this topic HPV VACCINE Aged Out No longer eligi ble based on patient's age to complete this topic MENINGOCOCCAL (Group B) VACCINE Aged Out No longer eligible based on patient's age to complete this topic MENINGOCOCCAL VACCINE Aged Out No jeramie breann eligible based on patient's age to complete this topic PNEUMOCOCCAL VACCINE Aged Out No long er eligible based on patient's age to complete this topic Care Teams Airset Caster Relationship Specialty Start Date End Date Donaldo Jenkins MD [address] [place] [address] PCP - General 11/14/16
--- OUTSIDE RECORDS SUMMARY | 2024-05-23 08:53 | XMS_ITS | Referral Summary ---
Author Organization [facility] Address [address] [facility] [place] [address] Care Team Providers Care Cat Cracker Operator Name Role Phone Donaldo Jenkins MD Primary Care Provider Source Comments [facility],non-owned Affiliates and Associated Physician Practices is amultiple site organization consisting of ambulatory clinics and hospital sitesin [place], [place], [place] and [place]. This disclosure is being madepursuant to the Care Everywhere program and may not contain all information available regarding this patient. Last updated 18.[facility] Direct Sitters Allergies No known active allergies Medications * [...] Comments Blood Pressure 138/81 02/28/2019 10:55 AM LABOR RELATIONS MANAGER Pulse 78 02/28/2019 10:55 AM LABOR RELATIONS MANAGER Temperature 36.7 ??C (98 ??F) 02/28/2019 10:55 AM LABOR RELATIONS MANAGER Respiratory Rate 18 02/28/2019 10:55 AM LABOR RELATIONS MANAGER Oxygen Saturation 100% 02/28/2019 10:55 AM LABOR RELATIONS MANAGER Inhaled Oxygen Concentration - - Weight 145.2 kg (320 lb) 02/28/2019 10:55 AM LABOR RELATIONS MANAGER Height 182.9 cm (6') 02/28/2019 10:55 AM LABOR RELATIONS MANAGER Body Mass Index 43.4 02/28/2019 10:55 AM LABOR RELATIONS MANAGER Plan of Treatment Not on file Care Teams Cat Cracker Operator Relationship Specialty Start Date End Date Donaldo Jenkins MD [address] [place] [phone] PCP - General 11/14/16
--- OUTSIDE RECORDS SUMMARY | 2024-05-23 08:53 | XMS_ITS | Referral Summary ---
Author Organization [address] Address [address] [place] [address] Care Team Providers Care Mucking Machine Operator Name Role Phone Radha Peck MD Unavailable [phone] Amber Queen NP Primary Care Provider [phone] Encounters Date Type Department Care Team Description 03/11/2024 Orders Only [facility] at [address] [phone] Rosales Huynh MD Adhesive bursitis of right shoulder (Primary Dx) 03/11/2024 Telephone [facility] at [address] [place] [phone] Rosales Huynh MD Surgery Clearance 03/11/2024 11:15 AM CUTTING AND CREASING PRESS OPERATOR Office Visit [facility] [address] [place] [phone] Rosales Huynh MD Impingement syndrome of right shoulder (Primary Dx); Superior glenoid labrum lesion of right shoulder, initial encounter; Arthritis of right acromioclavicular joint; Type 2 diabetes mellitus with other diabetic arthropathy, without long-term current use of insulin (HCC) 03/04/2024 10:00 AM CUTTING AND CREASING PRESS OPERATOR Office Visit [facility] [address] [place] [address] [place] [phone] Kia Ruiz PA Arthritis of right acromioclavicular joint (Primary Dx); Biceps tendinitis of right upper extremity; Subacromial impingement of right shoulder; Tear of right glenoid labrum, initial encounter 02/29/2024 10:20 AM CUTTING AND CREASING PRESS OPERATOR Lab [facility] [address] [place] [phone] Pre-op testing 02/23/2024 Orders Only [facility] Medicine [address] [facility] [address] [place] [phone] Rosales Huynh MD Pre-op testing (Primary Dx) from Last 3 Months Allergies No known active allergies Medications venlafaxine [...] with pyuria 2022 Abscess of scrotum 08/25/2022 Social History Tobacco Use Types Packs/Day Years [...] on file Legal Sex Male 9:02 AM CUTTING AND CREASING PRESS OPERATOR Gender Identity Not on file Sexual Orientation Not on file Last Filed Vital Signs Vital Sign Reading Time Taken Comments Blood Pressure 115/80 03/11/2024 10:53 AM CUTTING AND CREASING PRESS OPERATOR Pulse 83 03/11/2024 10:53 AM CUTTING AND CREASING PRESS OPERATOR Temperature 36.8 ??C (98.2 ??F) 09/01/2022 7:31 AM CD T Respiratory Rate 18 01/08/2024 10:5 6 AM CDT Oxygen Saturation 100% 09/01/2022 7:31 AM CDT Inhaled Oxygen Concentration - - Weight 123.7 kg (272 lb 9.6 oz) 024 10:53 AM CUTTING AND CREASING PRESS OPERATOR Height 185.4 cm (6' 1 ) 03/11/2024 10:5 3 AM CUTTING AND CREASING PRESS OPERATOR Body Mass Index 35.97 03/11/2024 10:53 AM CUTTING AND CREASING PRESS OPERATOR Plan of Treatment Not on file Procedures Procedure Name Priority Date/Time Associated Diagnosis Comments HEMOGLOBIN A1C Routine 02/29/2024 10:19 AM CUTTING AND CREASING PRESS OPERATOR Pre-op testing EGFR Routine 08/30/2022 5:57 AM CDT from Last 3 Months or Most Recently Relevant to Health Maintenance Results * Hemoglobin A1c (02/29/2024 10:19 AM CUTTING AND CREASING PRESS OPERATOR) Pathologist [facility] Hgb A1C 5.5 4.0 - 5.6 % Comment:Testing performed by : [facility], [address] [place] [address]., [id number] Estimated Average Glucose 111 mg/dL [facility] ([place]) Comment: The ADA recommends reporting an estimated Average Glucose (eAG) with all Hemoglobin A1c results using the equation derived from a study of 507 normal and diabetic adults. ??Minority populations were underrepresented and children were not included. ?? (Diabetes Care 31:8013-3914, 2008). ??The eAG is not equivalent to a fasting glucose. Testing performed by: [facility], [address] [place] [address]., [id number] Blood 02/29/2024 10:1 9 AM CUTTING AND CREASING PRESS OPERATOR 02/29/2024 1:23 PM CUTTING AND CREASING PRESS OPERATOR us Rosales Huynh MD LAB BLOOD ORDERABLES Final R esult [facility] ([place]) [address] [facility] Department of Laboratories [place] [id number] * eGFR (08/30/2022 5:57 AM CDT) [facility] eGFR 113 mL/min/1. 73 m2 [facility] ([place]) Comment: Interpretive Data Reference Interval Normal ?>/= [...] Inclusion of Race in Diagnosing Kidney Disease, MISTYSConi 2020). The CKD-EPI equation should not be used for patients with unstable renal function and has not been validated in children and those over 70. Current interpretive data was last reviewed 2021. Blood 08/30/2022 5:57 AM CDT 08/30/2022 5:57 AM CDT us Corrine Melvin MD LAB BLOOD ORDERABLES nal Result [facility] ([place]) [address] [facility] [place] [address] from Last 3 Months or Most Recently Relevant to Health Maintenance Insurance [facility] [employer]US [facility] [place] [address] [facility] PLUS Advance Directives For more information, please contact: [phone] * Full Code (Latest Code Status on File) Date Activated Date Inactivated Comments 08/25/2022 10:11 PM 09/01/2022 2:21 PM * Full Code Date Activated Date Inactivated Comments 08/25/2022 4:15 PM 08/25/2022 10:11 PM Care Teams Mucking Machine Operator Relationship Specialty Start Date End Date Amber Queen NP [address] [place] [address] PCP - General Nurse Practitioner 05/18/24 [place] [address] [facility] [address] [place] [address] Consulting Physician Urology 08/31/22
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
[2024-05-23 20:34] LABS: Basophils Absolute Auto 0.1 K/mm3 (0.0-0.1); Eosinophils Absolute Auto 0.1 K/mm3 (0-0.3); Eosinophils Percent Auto 0.8 % (0-4.4); Hematocrit 46.7 % (42.0-52.0); Hemoglobin 16.4 g/dL (14.0-18.0); Immature Granulocyte Absolute 0.01 K/mm3 (0.00-0.031); Immature Granulocyte Percent A 0.1 % (0-0.5); Lymphocytes Absolute Auto 2.14 K/mm3 (0.9-3.2); Lymphocytes Percent Auto 30.2 % (18.3-44.2); Mean Corpuscular HGB Conc 35.1 g/dl (32-36); Mean Corpuscular Hemoglobin 30.2 pg (26-34); Mean Platelet Volume 10.6 fl (7.4-10.4); Monocytes Absolute Auto 0.6 K/mm3 (0.1-0.6); Monocytes Percent Auto 7.9 % (2.6-8.5); Neutrophils Absolute Auto 4.3 K/mm3 (1.3-6.7); Platelet Count Result 199 k/mm3 (150-375); Red Blood Count 5.43 M/mm3 (4.6-6.20); Red Cell Distribution Width 13.3 % (11.5-14.5); White Blood Count 7.1 K/mm3 (4.5-10.0)
[2024-05-23 20:48] LABS: Alanine Aminotransferase 43 U/L (6-50); Albumin Level 4.6 g/dL (3.5-5.1); Alkaline Phosphatase 61 U/L (38-126); Anion Gap 12 mmol/L (4-12); Aspartate Amino Transferase 40 U/L (17-59); Bilirubin,Total 2.5 mg/dL (0.2-1.3); Blood Urea Nitrogen 18 mg/dL (9-20); Calcium 9.1 mg/dL (8.4-10.2); Carbon Dioxide 25 mmol/L (22-30); Chloride 103 mmol/L (98-107); Cholesterol 118 mg/dL (0-200); Estimated Glomerular Filt Rate > 60; Glucose 74 mg/dL (65-110); HDL Direct 45 mg/dL; Potassium 3.9 mmol/L (3.4-5.0); Sodium 140 mmol/L (137-145); Triglycerides 73 mg/dL (<150)
[2024-05-23 20:58] LABS: LDL Cholesterol Direct 58 mg/dL
[2024-05-23 21:09] LABS: Creatinine Urine 219.9 mg/dL
[2024-05-23 21:13] LABS: MALB Creatinine Ratio 6.4 mg/g (0-30); Microalbumin Urine Random 14.1 mg/L (0-16.7)
[2024-05-23 21:25] LABS: Prostate Specific Antigen 0.3 ng/mL (< OR = 4.0)
== END 2024-05-23 08:35 | disposition home or self-care (01) ==
LOC: ANHBWCLAB 08:36
PROVIDERS: PCP Nurse Practitioner Adult Health; Visit Provider Nurse Practitioner Adult Health
DX: E11.9 Type 2 diabetes mellitus without complications (principal); E29.1 Testicular hypofunction; Z12.5 Encounter for screening for malignant neoplasm of prostate; I10 Essential (primary) hypertension
CPT/HCPCS: 36415; 80053; 80061; 82043; 82565; 83036; 84153; 84402; 84403; 85025; G0103

== ENCOUNTER 2024-08-29 15:45 | Outpatient (RCR) | payer OTHER, SELFPAY ==
--- NOTE | 2024-06-16 15:41 | OPREHPOC ---
Outpatient Therapy Plan of Care This is a Multidisciplinary Plan of Care that may contain components documented by all disciplines (PT, OT, and ST.) PT Problem 1 PT Problem #1 Knowledge Deficit PT Goal 1 Goal / Goal Update [place] with HEP Target Visit 4 PT Goal 2 Goal / Goal Update Maintain pain no greater than 1/10 for 2 consecutive weeks Target Visit 8 PT Problem 2 PT Problem #2 Impaired Range of Motion PT Goal 1 Goal / Goal Update 1. Achieve 170 degrees of R shoulder flexion ROM 2. Achieve 85 degrees of R shoulder external rotation ROM Target Visit 10 PT Problem 3 PT Problem #3 Impaired Strength PT Goal 1 Goal / Goal Update Progress to resistive strengthening program per protocol. Strength goals to be established at that time Target Visit 10
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
--- NOTE | 2024-08-01 17:19 | OPREHPOC ---
Outpatient Therapy Plan of Care This is a Multidisciplinary Plan of Care that may contain components documented by all disciplines (PT, OT, and ST.) PT Problem 1 PT Problem #1 Knowledge Deficit PT Goal 1 Goal / Goal Update [place] with HEP Target Visit 4 Progress Met PT Goal 2 Goal / Goal Update Maintain pain no greater than 1/10 for 2 consecutive weeks Target Visit 8 Progress Met PT Problem 2 PT Problem #2 Impaired Range of Motion PT Goal 1 Goal / Goal Update 1. Achieve 170 degrees of R shoulder flexion ROM 2. Achieve 85 degrees of R shoulder external rotation ROM Target Visit 18 Progress Partially Met PT Problem 3 PT Problem #3 Impaired Strength PT Goal 1 Goal / Goal Update Progress to resistive strengthening program per protocol. Strength goals to be established at that time Target Visit 10 Progress Met PT Goal 2 Goal / Goal Update 1. Improve R shoulder external rotation strength to 5/5 to improve shoulder capsule mobility 2. Improve R shoulder flexion strength to 5/5 to improve object lifting for daily work function Target Visit 18
--- NOTE | 2024-08-01 17:19 | PTOPPROG ---
Assessment and note entered by Stephane Edmond, PT Evaluation Information Assessment Status Progress Diagnosis S/P R rotator cuff repair ICD-10 Condition Codes (PT) Pain in right shoulder M25.511 Onset 06/06/24 Subjective Information Reports that overall he feels he is doing really well. Denies any pain at rest or with basic function. Still has a lot of tightness in the back of the shoulder when reaching over his head or across his body. Reports that he feels he is ready to transition to more strengthening activity. Assessment PT Clinical Summary Patient has seen significant improvement in shoulder ROM. We have initiated strengthening for functional progression at this point. We will remain within protocol and progress capsular strengthening to tolerance at this time in preparation for protocol return to functional activity. Plan of Care Interventions Electrical Stimulation,Hot Pack/Cold Pack,Manual Therapy,Neuro Re-education,Therapeutic Activities, Therapeutic Exercise PT Services Indicated Yes Treatment Frequency and 1-2x/week for 8 visits Duration These treatments will address the objective and functional deficits as defined above. The patient will be advanced safely and appropriately in order for the patient to progress towards his/her prior level of function. Additional exercises will be introduced and as well as a comprehensive home exercise program upon discharge, if needed, to ensure carryover of functional gains achieved in the clinic. This treatment plan has been reviewed and agreement upon by the patient.
== END 2024-09-14 23:59 | disposition home or self-care (01) ==
LOC: ANHPT 15:45
PROVIDERS: PCP Nurse Practitioner Adult Health; Visit Provider Orthopaedic Surgery
DX: M75.111 Incomplete rotator cuff tear or rupture of right shoulder, not specified as traumatic (principal); Z98.890 Other specified postprocedural states
CPT/HCPCS: 97110; 97140; 97161; 97530; J2250; J3010

== ENCOUNTER 2024-09-22 15:30 | Outpatient (RCR) | payer OTHER, SELFPAY ==
--- NOTE | 2024-09-22 17:32 | OPREHPOC ---
Outpatient Therapy Plan of Care This is a Multidisciplinary Plan of Care that may contain components documented by all disciplines (PT, OT, and ST.) PT Problem 1 PT Problem #1 Knowledge Deficit PT Goal 1 Goal / Goal Update [place] with HEP Target Visit 4 Progress Met PT Goal 2 Goal / Goal Update Maintain pain no greater than 1/10 for 2 consecutive weeks Target Visit 8 Progress Met PT Problem 2 PT Problem #2 Impaired Range of Motion PT Goal 1 Goal / Goal Update 1. Achieve 170 degrees of R shoulder flexion ROM 2. Achieve 85 degrees of R shoulder external rotation ROM Target Visit 18 Progress Met PT Problem 3 PT Problem #3 Impaired Strength PT Goal 1 Goal / Goal Update Progress to resistive strengthening program per protocol. Strength goals to be established at that time Target Visit 10 Progress Met PT Goal 2 Goal / Goal Update 1. Improve R shoulder external rotation strength to 5/5 to improve shoulder capsule mobility 2. Improve R shoulder flexion strength to 5/5 to improve object lifting for daily work function Target Visit 18 Progress Met
--- NOTE | 2024-09-22 17:32 | PTOPDC ---
Assessment and note entered by Stephane Edmond, PT Evaluation Information Assessment Status Discharge Diagnosis S/P R rotator cuff repair ICD-10 Condition Codes (PT) Pain in right shoulder M25.511 Onset 06/06/24 Subjective Information Reports that he feels he is good to go overall. Pain is still present to a minor degree over anterior superior AC joint. No joint or muscle pain reported. 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 Denies any concerns for discharge at this time. Reported Pain Level Pain Score 0: Self Report Assessment PT Clinical Summary Patient has met all goals for therapy at this time . He has shown significant progress in strength and stability. Will continue to to work on throwers 10 to improve strength and stability for return to throwing activity. Will be discharged at this time. Plan of Care PT Services Indicated Yes
== END 2024-12-07 11:47 | disposition home or self-care (01) ==
LOC: ANHPT 15:30
PROVIDERS: PCP Nurse Practitioner Adult Health; Visit Provider Orthopaedic Surgery
DX: M75.111 Incomplete rotator cuff tear or rupture of right shoulder, not specified as traumatic (principal); Z98.890 Other specified postprocedural states
CPT/HCPCS: 97110; 97140

== ENCOUNTER 2024-11-14 15:21 | Inpatient (IN) | payer OTHER, SELFPAY ==
[2024-11-14] VITALS (12 sets, daily range): BP systolic 110–136; BP diastolic 70–85; PULSE 46–137; RESP 14–22; TEMP 36.7; O2SAT 98–100; BMI 39.6
--- NOTE | ~2024-11-14 | XR_ITS ---
CHEST RADIOGRAPH, PA AND LATERAL CLINICAL HISTORY: chest pain . COMPARISON: None available TECHNIQUE: PA and lateral views of the chest. FINDINGS The heart is of normal size. Multiple rounded areas of increased density are identified on lateral view within the mediastinum sug gesting mediastinal lymphadenopathy. The remainder of the cardiomediastinal silhouette is otherwise unremarkable. The lungs are clear. IMPRESSION: Mediastinal lymphadenopathy without focal infiltrate or effusion. Reviewed, dictated and finalized at location A.
--- NOTE | ~2024-11-14 | CT_ITS ---
EXAMINATION: CTA chest PE protocol DATE: 11/14/2024 17:39 CDT INDICATION: Tachycardia TECHNIQUE: Computed tomographic angiography (CTA) of the chest was performed with 100 mL Omnipaque-35 0 intravenous contrast. The dose-length product was 972.98 mGy-cm. Maximum intensity projection 3D-re constructions of the aorta and other arteries were constructed by the technologist on a separate work station. COMPARISON: Reference is made to plain film evaluation of the chest, performed approximately 2 hours earlier FINDINGS/OBSERVATIONS: PULMONARY ARTERIES: No filling defect is identified within the main or proximal pulmonary artery. The main pulmonary artery is not enlarged. THORACIC AORTA: No aneurysmal dilatation or dissection is present. The great vessels are intact LUNGS: Low lung volumes are detected bilaterally, leading to pulmonary vascular crowding. Punctate 2 and 3 mm nodules of calcium within the bilateral lower lobe suggesting prior granulomatous disease. MEDIASTINUM: Within the posterior mediastinum, arising within the posterior medial right lower lobe i s a multilobulated well-circumscribed mass, corresponding to the abnormality seen on plain film evalu ation. This mass is at the level of the mary, and extends along the posterior medial margin of the descend ing right pulmonary artery. No morphologically suspicious or pathologically enlarged lymph nodes are identified within the medias tinum or bilateral axilla. BONES OF THE CHEST: No acute fracture. No significant degenerative disease. No lytic or blastic lesions. HEART: The heart is of normal size, without pericardial effusion. IMPRESSION: No pulmonary embolus. No thoracic aortic dissection. Calcified posterior mediastinal well-circumscribed multilobulated mass for which the differential dayanara gnosis is broad. This may represent a calcified fibrous pseudotumor of the posterior mediastinum,a ne rve sheath tumor, a neural crest tumor or less likely, calcified granulomatous disease. Contrast enha nced MRI would provide additional information, if the patient is clinically able. Reviewed, dictated and finalized at location A. IMPRESSION: No pulmonary embolus. No thoracic aortic dissection. Calcified posterior mediastinal well-circumscribed multilobulated mass for whic h the differential diagnosis is broad. This may represent a calcified fibrous p seudotumor of the posterior mediastinum,a nerve sheath tumor, a neural crest tu mor or less likely, calcified granulomatous disease. Contrast enhanced MRI woul d provide additional information, if the patient is clinically able.
--- OUTSIDE RECORDS SUMMARY | 2024-11-14 15:23 | XMS_ITS | Clinical Summary ---
Author Organization [facility] Address [address] [place] [phone] Phone Care Team Providers Care Hotel Reservation Agent Name Role Phone Donaldo Jenkins MD Primary Care Provider [phone] Allergies No known active allergies Medications Cetirizine [...] 84 11/08/2018 11:29 AM CDT Temperature 36.8 C (98.2 F) 11/08/2018 11:29 AM CDT Respiratory Rate 20 11/08/2018 11:29 AM CDT Oxygen Saturation 98% 11/08/2018 11:29 AM CDT Inhaled Oxygen Concentration - - Weight 136.1 kg (300 lb) 11/08/2018 11:29 AM CDT Height 182.9 cm (6') 11/08/2018 11:29 AM CDT Body Mass Index 40.69 11/08/2018 11:29 AM CDT Plan of Treatment Health Maintenance Due Date Last Done Comments TdaP Immunization 1982 Human Papillomavirus (HPV) Immunization (1 - Male 3-dose series) 1997 SARS-COV-2 Immunization ( season) 2023 Influenza Immunization (#1) 12/26/202401/25, 02/17/2017, 02/24/2015 Respiratory Syncytial Virus (RSV) Immunization (Adult) (1 - 1-dose 75+ series) 2057 DTaP/Tdap/Td Immunization Discontinued 1996, 12/07/1987, 12/20/1984, Additional history exists Hepatitis B Immunization Completed , 03/06/1999, 01/03/1999 Hepatitis C Virus (HCV) Screening Completed 11/12/2016 Meningococcal Immunization (ACWY) Aged Out No longer eligible based on patient's age to complete this topic Pneumococcal Immunization Combined Aged Out No longer eligible based on patient's age to complete this topic Rotavirus Immunization Aged Out No lo nger eligible based on patient's age to complete this topic Insurance [facility] Care Teams Hotel Reservation Agent Relationship Specialty Start Date End Date Donaldo Jenkins MD [address] [place] [address] PCP - General Family Medicine 11/08/18
--- OUTSIDE RECORDS SUMMARY | 2024-11-14 15:23 | XMS_ITS | Clinical Summary ---
Author Organization [facility] Address Replaced by [facility] [place] [address] Care Team Providers Care Lead Qa Analyst Name Role Phone Donaldo Jenkins MD Primary Care Provider [phone] Allergies No known active allergies Medications * [...] depressive disorder) 02/15/2020 Major depression 01/10/2020 Immunizations Immunization Administration Dates Next Due Fluzone 6 Months+ [...] often do you attend chur ch or restorationist services? 1 to 4 times per year [...] and heating? 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 Gender Identity Male 01/11/2020 1:12 AM CDT Sexual Orientation Straight 01/11/2020 1: 12 AM CDT Last Filed Vital Signs Vital Sign Reading Time Taken Comments Blood Pressure 120/74 02/21/2020 8:49 PM CDT Pulse 98 02/21/2020 8:49 PM CDT Temperature 38.4 C (101.1 F) 02/22/2020 7:42 AM CDT Respiratory Rate 18 02/21/2020 7:00 AM CDT Oxygen Saturation 99% 02/21/2020 8:49 PM CDT Inhaled Oxygen Concentration - - Weight 129.3 kg (285 lb) 02/15/2020 9:00 AM CDT Height 185.4 cm (6' 1) 02/15/2020 9:00 AM CDT Body Mass Index 37.6 02/15/2020 9:00 AM CDT Plan of Treatment Health Maintenance Due Date Last Done Comments Annual Physical 1985 DTaP, Tdap and Td Vaccines (1 - Tdap) 2001 12/07/1987, 12/20/1984, 10/01/1983, Additional history exists Hepatitis B Vaccines (1 of 3 - 19+ 3-dose series) 2001 HPV Vaccines (1 - 3-dose SCDM series) 2009 COVID-19 Vaccine (2023- season) 2023 Hepatitis C Completed 11/12/2016 Meningococcal B Vaccine Aged Out No l onger eligible based on patient's age to complete this topic Meningococcal Vaccine Aged Out No jeramie breann eligible based on patient's age to complete this topic Pneumococcal Vaccine: Pediatrics (0 to 5 Years) and At-Risk Patients (6 to 49 Years) Aged Out No longer eligible based [...] VE NON-REACT JAISON 11/13/2016 9:[address] [facility] Comment:HBsAg NOT DETECTED. HEP B CORE IGM NON-REACTI VE NON-REACT JAISON 11/13/2016 9:[address] [facility] Comment: IgM ANTI HBc NOT DETECTED. DOES NOT EXCLUDE THE POSSIBILITY OF EXPOSURE TO OR INFECTION WITH HBV. NO RETEST REQUIRED. HAV IGM NON-REACTI VE NON-REACT JAISON 11/13/2016 9:[address] [facility] Comment: IgM ANTI HAV NOT DETECTED. DOES NOT EXCLUDE THE POSSIBILITY OF EXPOSURE TO OR INFECTION WITH HAV. LEVELS OF IgM ANTI HAV MAY BE BELOW THE CUTOFF IN EARLY INFECTION. HEPATITIS C AB NON-REACTI VE NON-REACT JAISON 11/13/2016 9:[address] [facility] Comment: ANTIBODIES TO HCV NOT DETECTED. DOES NOT EXCLUDE THE POSSIBILITY OF EXPOSURE TO HCV. 11/12/2016 8:00 AM CDT 11/12/2016 8:03 AM CDT us Generic Conversion Md [facility] Final R esult [facility] [address] [place] [address], [id number] from Last 3 Months or Most Recently Relevant to Health Maintenance Insurance [facility] Advance Directives * Full Code (Latest Code Status on File) Date Activated Date Inactivated Comments 02/15/2020 10:36 AM 02/22/2020 5:06 PM * Full Code Date Activated Date Inactivated Comments 01/10/2020 8:45 PM 01/16/2020 4:06 PM Care Teams Lead Qa Analyst Relationship Specialty Start Date End Date Donaldo Jenkins MD [address] [place] [address] PCP - General FAMILY PRACTICE 02/15/19
--- OUTSIDE RECORDS SUMMARY | 2024-11-14 15:23 | XMS_ITS | Clinical Summary ---
Author Organization [facility] 163 [facility] lto Address [address] [place] [address] Care Team Providers Care Helicopter Repairer Name Role Phone Radha Peck MD Unavailable [phone] Amber Queen NP Primary Care Provider [phone] Allergies No known active allergies Medications venlafaxine XR (EFFEXOR-XR) 75 mg 24 hr capsule TK 1 C PO D 0 03/05/20 19 Active clonazePAM (KlonoPIN) 0.5 mg tablet TK 1 T PO BID PRF ANXIETY 0 02/08/20 19 Active busPIRone (BUSPAR) 10 mg tablet buspirone 10 mg tablet TAKE 2 TABLETS BY MOUTH THREE TIMES DAILY 02/22/20 20 Active testosterone cypionate (DEPO-TESTOTERONE) 200 mg/mL injection ADMINISTER 0.5 ML IN THE MUSCLE EVERY WEEK Active cholecalciferol (VITAMIN D-3) 2000 unit capsule Take 1 capsule (2,000 Units total) by mouth daily 30 capsule 06/06/19 25 Active ascorbic acid (VITAMIN C) 500 mg tablet,chewable Take 1 tablet/chew tab (500 mg total) by mouth 2 (two) times a day 60 tablet/chew tab 06/06/19 25 Active ondansetron ODT (ZOFRAN-ODT) 4 mg disintegrating tablet Take 1 tablet (4 mg total) by mouth every 6 (six) hours as needed for nausea or vomiting 10 tablet 06/06/19 25 Active senna-docusate (PERICOLACE) 8.6-50 mg Take 1-2 tablets daily prn for constipation 30 tablet 06/06/19 25 Active semaglutide (Ozempic) 2 mg/dose (8 mg/3 mL) pen injector injectionIndicatio ns:type 2 diabetes mellitus Inject 2 mg under the skin every 7 days Thursday06/12/19 25 Active oxyCODONE-acetamin ophen (PERCOCET) 5-325 mg per tabletIndications: Pain Take 1-2 tablets by mouth every 4 (four) hours as needed for pain 30 tablet 06/10/19 25 Active Active Problems Problem Noted Date Diagnosed Date Incomplete tear of right rotator cuff 06/06/2024 Impingement syndrome of right shoulder Superior glenoid labrum lesion of right shoulder 05/23/2024 Arthritis of right acromioclavicular joint 05/23 Adhesive capsulitis of right shoulder 01/08/2024 Hypertension 08/26/2022 Type 2 diabetes mellitus 08/26/2022 Depression 08/26/2022 Anxiety 08/26/2022 COPD (chronic obstructive pulmonary disease) 05/2022 UTI (urinary tract infection) with pyuria 2022 Abscess of scrotum 08/25/2022 Encounters Date Type Department Care Team Description 09/01/2024 3:45 PM CDT Office Visit [facility] Orthopedic and Sports Medicine [address] [place] [phone] Kia Ruiz PA History of arthroscopy of right shoulder (Primary Dx); S/P rotator cuff repair from Last 3 Months Surgical History Surgery Date Site/Laterality Comments SURGERY SCROTAL / TESTICULAR WISDOM TOOTH EXTRACTION Medical History Medical History Date Comments Anxiety Depression Type 2 diabetes mellitus (HCC) Social History Tobacco Use Types Packs/Day Years Used Date Smoking Tobacco: Never Smokeless Tobacco: Never Tobacco Cessation:Counseling Given: Not Answered Alcohol Use Standard Drinks/Week Comments Not Currently 0 (1 standard drink = 0.6 oz pur e alcohol) AUDIT-C Answer Date Recorded Q1: How often do you have a drink containing alc ohol? Monthly or less 06/06/2024 Q2: How many drinks containi ng alcohol do you have on a typical day when you are drinking? 1 or 2 06/06/2024 Q3: How often do you have si x or more drinks on one occasion? Never 06/06/2024 Personal Safety Answer Date Recorded Have you ever been in or are you currently in a harmful physical or emotional relationship or is someone making you feel afraid or unsafe? 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 Gender Identity Not on file Sexual Orientation Not on file Obstetrics History Last Filed Vital Signs Vital Sign Reading Time Taken Comments Blood Pressure 118/78 09/01/2024 3:39 PM CDT Pulse 60 09/01/2024 3:39 PM CDT Temperature 36.3 C (97.4 F) 06/06/2024 4:11 PM HEAD LOFT WORKER Respiratory Rate 18 06/21/2024 3:50 PM HEAD LOFT WORKER Oxygen Saturation 95% 06/06/2024 4:11 PM HEAD LOFT WORKER Inhaled Oxygen Concentration - - Weight 127.9 kg (282 lb) 09/01/2024 3:39 PM CDT Height 182.9 cm (6') 09/01/2024 3:39 PM CDT Body Mass Index 38.25 09/01/2024 3:39 PM CDT Plan of Treatment Health Maintenance Due Date Last Done Comments Albumin Creatinine Ratio, Urine 1982 Depression Screening 1982 Hepatitis C Screening 1982 Dilated Eye Exam 1982 Foot Exam 1982 Lipid Panel 1982 Varicella Vaccines (1 of 2 - 13+ 2-dose series) 1995 DTaP/Tdap/Td Vaccine (6 - Tdap) 01/10/1997 01/09/1997, 12/07/1987, 12/20/1984, Additional history exists Regular Well Visit/Exam 18-64 2000 Pneumococcal vaccine <65 (1 of 2 - PCV) 2001 eGFR 08/31/2023 08/30/2022, 05/0 08/2022, 08/28/2022, Additional history exists Hemoglobin A1C 08/28/2024 02/29/2024, 08/28/2022 Influenza Vaccine (Season Ended) 2024 02/20/2021, 02/06/2021, 01/21/2020, Additional history exists Hepatitis B Screening Completed 08/08/1999 , 03/06/1999, 01/03/1999 HPV Vaccines Aged Out No longer eligi ble based on patient's age to complete this topic Medical Devices Implanted Type Area Hand Brush Filler Device Identifier Shelf Expiration Date Model / Serial / Lot [employer] Rachell C 4.75mm 19.1mm Closed Eyelet Vent [place] Suture Ar-[id number] - [id number] Implanted:Qty: 1 on 06/06/2024 by Rosales Huynh MD at [facility] Right: Shoulder [employer] 12/26/2027 AR-[id number] / / [id number] Procedures Procedure Name Priority Date/Time Associated Diagnosis Comments HEMOGLOBIN A1C Routine 02/29/2024 10:19 AM HEAD LOFT WORKER Pre-op testing EGFR Routine 08/30/2022 5:57 AM CDT from Last 3 Months or Most Recently Relevant to Health Maintenance Results * Hemoglobin A1c (02/29/2024 10:19 AM HEAD LOFT WORKER) Hgb A1C 5.5 4.0 - 5.6 % Comment:Testing performed by : [facility], [address] [place] [address]., [id number] Estimated Average Glucose 111 mg/dL JUNG MATTHEW ([facility]) Comment: The ADA recommends reporting an estimated Average Glucose (eAG) with all Hemoglobin A1c results using the equation derived from a study of 507 normal and diabetic adults. Minority populations were underrepresented and children were not included. (Diabetes Care 31:2966-0309, 2008). The eAG is not equivalent to a fasting glucose. Testing performed by: [facility], [address] [place] [address]., [id number] Blood 02/29/2024 10:1 9 AM HEAD LOFT WORKER 02/29/2024 1:23 PM HEAD LOFT WORKER us Rosales Huynh MD LAB BLOOD ORDERABLES Final R esult JUNG MATTHEW ([facility]) [address] [facility] [place] [address] * eGFR (08/30/2022 5:57 AM CDT) eGFR 113 mL/min/1. 73 m2 JASONSTEPHANIE MATTHEW ([facility]) Comment: Interpretive Data Reference Interval Normal >/= 90 mL/min/1.73m2 Mildly decreased* 60 - 89 mL/min/1.73m2 Mildly to moderately decreased 45 - 59 mL/min/1.73m2 Moderately to severely decreased 30 - 44 mL/min/1.73m2 Severely decreased 15 - 29 mL/min/1.73m2 Kidney Failure < 15 mL/min/1.73m2 *Relative to young adult level Estimated glomerular [...] Melvin MD LAB BLOOD ORDERABLES nal Result JUNG MATTHEW ([facility]) 1 [facility] [place] [address] from Last 3 Months or Most Recently Relevant to Health Maintenance [place] [address] [place] [address] [facility] HMO/PPO Address: [address] [place] [address] [facility] CHO[facility] HMO/PPO Address: [address] [place] [address] [place] [address] [facility] CHOICE [facility] HMO/PPO Address: [address] [place] [address] Advance Directives For more information, please contact: [phone] * Full Code (Latest Code Status on File) Date Activated Date Inactivated Comments 08/25/2022 10:11 PM 09/01/2022 2:21 PM * Full Code Date Activated Date Inactivated Comments 08/25/2022 4:15 PM 08/25/2022 10:11 PM Care Teams Helicopter Repairer Relationship Specialty Start Date End Date Amber Quene NP [address] [place] [id number] PCP - General Nurse Practitioner 05/18/24 Radha Peck MD Consulting Physician Urology 08/31/22
--- OUTSIDE RECORDS SUMMARY | 2024-11-14 15:23 | XMS_ITS | Clinical Summary ---
Author Organization [facility] Address [address] [address] Care Team Providers Care Sales Person Name Role Phone Donaldo Jenkins MD Primary Care Provider Source Comments [facility],non-owned Affiliates and Associated Physician Practices is amultiple site organization consisting of ambulatory clinics and hospital sitesin [place], [place], [place] and [place]. This disclosure is being madepursuant to the Care Everywhere program and may not contain all information available regarding this patient. Last updated 18.[facility] [employer] Allergies No known active allergies Medications * Be aware that medications may not be up to date on this document. Alwaysverify current medications with the patient. FLUoxetine (PROZAC) 40 MG capsule 2 capsules DAILY. 10/22/2016 Active clonazePAM (KLONOPIN) 1 MG tablet 1 tablet BID. 10/22/2016 Activ e buPROPion SR 12hr (WELLBUTRIN-SR) 150 MG tablet [...] at Not on file Legal Sex Male 5:27 PM BIOINFORMATICIAN Gender Identity Not on file Sexual Orientation Not on file Last Filed Vital Signs Vital Sign Reading Time Taken Comments Blood Pressure 138/81 02/28/2019 10:55 AM BIOINFORMATICIAN Pulse 78 02/28/2019 10:55 AM BIOINFORMATICIAN Temperature 36.7 C (98 F) 02/28/2019 10:55 AM BIOINFORMATICIAN Respiratory Rate 18 02/28/2019 10:55 AM BIOINFORMATICIAN Oxygen Saturation 100% 02/28/2019 10:55 AM BIOINFORMATICIAN Inhaled Oxygen Concentration - - Weight 145.2 kg (320 lb) 02/28/2019 10:55 AM BIOINFORMATICIAN Height 182.9 cm (6') 02/28/2019 10:55 AM BIOINFORMATICIAN Body Mass Index 43.4 02/28/2019 10:55 AM BIOINFORMATICIAN Plan of Treatment Health Maintenance Due Date Last Done Comments LIPID TESTING 1982 HIV SCREENING 1997 HEPATITIS C SCREENING 05/04/2000 DTAP/TDAP/TD VACCINES (1 - Tdap) 2001 HEPATITIS B VACCINE (1 of 3 - 19+ 3-dose series) 2001 HPV VACCINE (1 - 3-dose SCDM series) 2009 COVID-19 VACCINE (1 - 2023-2 5 season) 2023 DEPRESSION SCREENING 04/27/2024 INFLUENZA VACCINE (#1) 2024 ZOSTER VACCINE (1 of 2) 2032 HIB VACCINE Aged Out No longer eligi ble based on patient's age to complete this topic MENINGOCOCCAL (Group B) VACC INE SHARED DECISION-MAKING Aged Out No longer eligibl e based on patient's age to complete this topic MENINGOCOCCAL GROUPS A/C/Y/W VACCINE Aged Out No longer eligible b ased on patient's age to complete this topic PNEUMOCOCCAL VACCINE Aged Out No long er eligible based on patient's age to complete this topic Insurance [facility] [place] [address] Care Teams Sales Person Relationship Specialty [place] [address] [place] [address] [place] [phone] PCP - General 11/14/16
--- OUTSIDE RECORDS SUMMARY | 2024-11-14 15:23 | XMS_ITS | Referral Summary ---
Author Organization [facility] 163 [facility] lto Address [address] [place] [address] Care Team Providers Care Denial Management Representative Name Role Phone Radha Peck MD Unavailable [phone] Amber Queen NP Primary Care Provider [phone] Encounters Date Type Department Care Team Description 09/01/2024 3:45 PM CDT Office Visit [facility] Medical Group Orthopedic and Sports Medicine [address] [place] [phone] Kia Ruiz PA History of arthroscopy of right shoulder (Primary Dx); S/P rotator cuff repair from Last 3 Months Allergies No known [...] on file Legal Sex Male 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 SUPERVISOR [employer] Gender Identity Not on file Sexual Orientation Not on file Last Filed Vital Signs Vital Sign Reading Time Taken Comments Blood Pressure 118/78 09/01/2024 3:39 PM CDT Pulse 60 09/01/2024 3:39 PM CDT Temperature 36.3 C (97.4 F) 06/06/2024 4:11 PM SUPERVISOR [employer] Respiratory Rate 18 06/21/2024 3:50 PM SUPERVISOR [employer] Oxygen Saturation 95% 06/06/2024 4:11 PM SUPERVISOR [employer] Inhaled Oxygen Concentration - - Weight 127.9 kg (282 lb) 09/01/2024 3:39 PM CDT Height 182.9 cm (6') 09/01/2024 3:39 PM CDT Body Mass Index 38.25 09/01/2024 3:39 PM CDT Plan of Treatment Not on file Medical Devices Implanted Type Area Supervisor Steno Pool Device Identifier Shelf Expiration Date Model / Serial / Lot [employer] Swivelock C 4.75mm 19.1mm Closed Eyelet Vent [place] Suture Ar-[id number] - [id number] Implanted:Qty: 1 on 06/06/2024 by Rosales Huynh MD at [facility] Right: Shoulder [employer] 12/26/2027 AR-[id number] / / [id number] Procedures Procedure Name Priority Date/Time Associated Diagnosis Comments HEMOGLOBIN A1C Routine 02/29/2024 10:19 AM SUPERVISOR [employer] Pre-op testing EGFR Routine 08/30/2022 5:57 AM CDT from Last 3 Months or Most Recently Relevant to Health Maintenance Results * Hemoglobin A1c (02/29/2024 10:19 AM SUPERVISOR [employer]) Hgb A1C 5.5 4.0 - 5.6 % Comment:Testing performed by : [facility], [address] [place] [address], [place]., [address] Estimated Average Glucose 111 mg/dL JUNG MATTHEW ([facility]) Comment: The ADA recommends reporting an estimated Average Glucose (eAG) with all Hemoglobin A1c results using the equation derived from a study of 507 normal and diabetic adults. Minority populations were underrepresented and children were not included. (Diabetes Care 31:7193-4530, 2008). The eAG is not equivalent to a fasting glucose. Testing performed by: [facility], [address] [place] [address]., [address] Blood 02/29/2024 10:1 9 AM SUPERVISOR [employer] 02/29/2024 1:23 PM SUPER[employer] us Rosales Huynh MD LAB BLOOD ORDERABLES Final R esult JUNG MATTHEW ([facility]) [address] [place] [address] Department [place] [address] * eGFR (08/30/2022 5:57 AM CDT) eGFR 113 mL/min/1. 73 m2 JUNG TIFF ([facility]) Comment: Interpretive Data Reference Interval Normal >/= [...] of Race in Diagnosing Kidney Disease, JASN 202). The CKD-EPI equation should not be used for patients with unstable renal function and has not been validated in children and those over 70. Current interpretive data was last reviewed 2021. Blood 08/30/2022 5:57 AM CDT 08/30/2022 5:57 AM CDT us Corrine Melvin MD LAB BLOOD ORDERABLES Fi nal Result [facility]) [address] [place] [address] from Last 3 Months or Most Recently Relevant to Health Maintenance [place] [address] [place] [address] CHOICE PLUS [facility] CHOICE PLUS [facility] CHOICE PLUS Advance Directives For more information, please contact: [phone] * Full Code (Latest Code Status on File) Date Activated Date Inactivated Comments 08/25/2022 10:11 PM 09/01/2022 2:21 PM * Full Code Date Activated Date Inactivated Comments 08/25/2022 4:15 PM 08/25/2022 10:11 PM Care Teams Denial Management Representative Relationship Specialty Start Date End Date Amber Queen NP [address] [place] [address] PCP - General Nurse Practitioner 05/18/24 Radha Peck MD Consulting Physician Urology 08/31/22
--- OUTSIDE RECORDS SUMMARY | 2024-11-14 15:24 | XMS_ITS | Patient Health Record ---
Author Organization [facility] Address [address] [place] [address] Care Team Providers Care Gardening Manager Name Role Phone Clemente Ramirez Unavailable [phone] Reason For Referral No Information Medications Medication SIG (Take, Route, Frequency, Duration) Notes Start Date End Date Status FLUARIX QUAD [id number] (PF) 60 MCG (15 MCG X 4)/0.5 ML IM SYRINGE *Reorder from [email or web address] for eRx and Interaction Alerts* 12/19/2019 Active Metoprolol Succinate ER 50 MG Oral 12/19/2019 Active QUEtiapine Fumarate 50 MG Oral 12/19/2019 Active OXcarbazepine 150 MG Oral 12/19/2019 Active lamoTRIgine 100 MG Oral 12/19/2019 Active OXcarbazepine 300 MG Oral 12/19/2019 Active Sertraline HCl 50 MG Oral 12/19/2019 Active levoFLOXacin 500 MG Oral 12/19/2019 Active metFORMIN HCl 850 MG Oral 12/19/2019 Active oxyCODONE-Acetaminop hen 5-325 MG Oral 12/19/2019 Active busPIRone HCl 10 MG Oral 12/19/2019 Active Escitalopram Oxalate 10 MG Oral 12/19/2019 Active Anastrozole 1 MG Oral 12/19/2019 Ac tive QUEtiapine Fumarate 25 MG Oral 12/19/2019 Active cloNIDine HCl 0.1 MG Oral 12/19/2019 Active Sertraline HCl 100 MG Oral 12/19/2019 Active Testosterone Cypionate 200 MG/ML Intramuscular 12/19/2019 Active metroNIDAZOLE 500 MG Oral 12/19/2019 Active Melatonin 5 MG Oral 12/19/2019 Acti ve hydrOXYzine HCl 25 MG Oral 12/19/2019 Active HCG 500IU #[id number] TABLETS *Reorder from [email or web address] for eRx and Interaction Alerts* 12/19/2019 Active metFORMIN HCl 1000 MG Oral 12/19/2019 Active Immunizations Vaccine Route Administration Date Status Comme nts Tdap Unknown 1993 Administered Varicella Unknown 1983 Administered Plan Of Treatment No Information Insurance Providers Payer Name Payer Address Payer Phone Subscriber Number Group Number Insured Name Patient Relationship to Insured Coverage Start Date Coverage End Date [facility] [address] [place] [address] [id number] NERY PERRIN Self - patient is the insured
--- OUTSIDE RECORDS SUMMARY | 2024-11-14 15:24 | XMS_ITS | Data Portability ---
Author Organization [facility] Address [address] [place] [address] Assessment No assessment recorded. Plan of Treatment Reminders Order Date Submit Date Provider Last Modified By Organization Details Last Modified Time Details Appointments None recorded. Lab culture, urine 2022 023 [facility], [address] [place] [address], [address], [place], [address], 3 12:36:34 urinalysis, dipstick 2022 023 [email or web address] In-Office Order, Internal Use Only DO Not Attach Compendium DO Not Attach Compendium, Do Not Delete/merge, 3 10:42:38 glucose, fingerstick , blood 2022 023 [email or web address] In-Office Order, Internal Use Only DO Not Attach Compendium DO Not Attach Compendium, Do Not Delete/merge, 3 10:56:40 Referral None recorded. Procedures None recorded. Surgeries None recorded. Imaging None recorded. Medication Orders Medrol (Paramjit) 4 mg tablets in a dose pack 2024 025 [id number], [address], [place], [place], [id number], 5 09:56:46 Pataday Twice Daily Relief 0.1 % eye drops 2024 025 [id number], [address], [place], [place], [id number], 5 09:56:45 ofloxacin 0.3 % ear drops 2023 025 [facility] #[id number], [address], [place], [place], [id number], 5 09:51:24 sulfamethox azole 800 mg-trimetho prim 160 mg tablet 2022 023 [email or web address] [facility] #97261, [address], [place], [place], [id number], 5 09:49:15 Patient TargetsNo targets recorded. Patient Instructions Encounter Date Encounter Id Patient Instructions Last Modified By Organization Details Last Modified Time 06/11/2022 [id number] Urinary Tract Infections (UTI) in Men: Care Instructions Not available 06/24/2022 10:05:22 08/09/2024 [id number] A healthy lifestyle: care instructions Not available 08/29/2024 12:07:54 Reason for Referral None Reported. Results Created Date Observation Date Name Description Value Unit Range Abnormal Flag Note LastModifiedBy Organization Detail LastModifiedTime 06/11/1906/14/2022 URINE CULTU RE,CO MPREH ENSIV E urine culture,comp rehensive Final report abnormal Not Available [facility] ([facility]) [address] [facility], [place], [address], 06/14/2022 12:36:34 06/11/1906/14/2022 URINE CULTU RE,CO MPREH ENSIV E result 1 Commen t abnormal Methi cilli n - resis tant Staph yloco ccus aureu s Based on resis tance to oxaci llin this isola te would be resis tant to all curre ntly avail able beta- lacta m antim icrob ial agent s, with the excep tion of the newer cepha lospo rins with anti- MRSA activ ity, such as Cefta rolin e 4,000 Colon ies/m L Not Available [facility] ([facility]) [address] [facility], [place], [address], 06/14/2022 12:36:34 06/11/1906/14/2022 URINE CULTU RE,CO MPREH ENSIV E antimicrobia l susceptibili ty Commen t S = Susce ptibl e; I = Inter media te; R = Resis tant P = Posit elma; N = Negat elma MICS are expre ssed in micro grams per mL Antib iotic RSLT# 1 RSLT# 2 RSLT# 3 RSLT# 4 Cipro floxa babak S Genta micin S Levof loxac in S Linez olid S Nitro furan toin S Oxaci llin R Penic illin R Rifam pin S Tetra cycli ne S Trime thopr im/Oquendo lfa S Vanco mycin S Not Available [facility] ([facility]) [address] [facility], [place], [address], 06/14/2022 12:36:34 06/11/1906/11/2022 gluco se, finge rstic k, blood Blood Glucose: mg/dl 250 Not Available In-Off ice Order Internal Use Only DO Not Attach Compendium DO Not Attach Compendium, Do Not Delete/merge, 06/11/2022 10:43:11 06/11/1906/11/2022 urina lysis , dipst ick Leukocytes Small Not Available In-Offi ce Order Internal Use Only DO Not Attach Compendium DO Not Attach Compendium, Do Not Delete/merge, 06/11/2022 10:41:48 06/11/19 23 06/11/2022 urina lysis , dipst ick Nitrite negati ve Not Available In-Office Order Internal Use Only DO Not Attach Compendium DO Not Attach Compendium, Do Not Delete/merge, 06/11/2022 10:41:48 06/11/19 23 06/11/2022 urina lysis , dipst ick Urobilinogen .2 Not Available In-Of fice Order Internal Use Only DO Not Attach Compendium DO Not Attach Compendium, Do Not Delete/merge, [facility] 06/11/2022 10:41:48 06/11/19 23 06/11/2022 urina lysis , dipst ick Protein 30 Not Available In-Office Order Internal Use Only DO Not Attach Compendium DO Not Attach Compendium, Do Not Delete/merge, [facility] 06/11/2022 10:41:48 06/11/19 23 06/11/2022 urina lysis , dipst ick pH 5.5 Not Available In-Office Order Internal Use Only DO Not Attach Compendium DO Not Attach Compendium, Do Not Delete/merge, 06/11/2022 10:41:48 06/11/19 23 06/11/2022 urina lysis , dipst ick Blood Negati ve Not Available In-Office Order Internal Use Only DO Not Attach Compendium DO Not Attach Compendium, Do Not Delete/merge, [id number] 06/11/2022 10:41:48 06/11/19 23 06/11/2022 urina lysis , dipst ick Specific [place] 1.025 Not Available In-Off ice Order Internal Use Only DO Not Attach Compendium DO Not Attach Compendium, Do Not Delete/merge, 06/11/2022 10:41:48 06/11/19 23 06/11/2022 urina lysis , dipst ick Ketone Modera te Not Available In-Office Order Internal Use Only DO Not Attach Compendium DO Not Attach Compendium, Do Not Delete/merge, 06/11/2022 10:41:48 06/11/19 23 06/11/2022 urina lysis , dipst ick Bilirubin Negati ve Not Available In-Office Order Internal Use Only DO Not Attach Compendium DO Not Attach Compendium, Do Not Delete/merge, 06/11/2022 10:41:48 06/11/19 23 06/11/2022 urina lysis , dipst ick Glucose 1000 Not Available In-Office Order Internal Use Only DO Not Attach Compendium DO Not Attach Compendium, Do Not Delete/merge, [id number] 06/11/2022 10:41:48 06/11/19 23 06/11/2022 urina lysis , dipst ick Appearance Slight ly Cloudy Not Available In-Office Order Internal Use Only DO Not Attach Compendium DO Not Attach Compendium, Do Not Delete/merge, [id number] 06/11/2022 10:41:48 06/11/1906/11/2022 zaira lysis , dipst ick Color Dark Yellow Not Available In-Office Order Internal Use Only DO Not Attach Compendium DO Not Attach Compendium, Do Not Delete/merge, [id number] 06/11/2022 10:41:48 Result Notes None recorded. Problems No Known Problems Medical Equipment None Reported. Allergies No known drug allergies Medications Name Sig Start Date Stop Date Status Note LastModified by Organization Details LastModified Time quetiapine 25 mg tablet TAKE 1 TABLET BY MOUTH TWICE DAILY WITH A 100MG TABLET. 08/09 completed Not Available Not Available Not Available oxcarbazepi ne 150 mg tablet TAKE 1 TABLET BY MOUTH TWICE DAILY 08/09 completed Not Available Not Available Not Available clonidine HCl 0.1 mg tablet TAKE 1/2 BY MOUTH THREE TIMES DAILY active Not Available Not Available No t Available venlafaxine ER 75 mg capsule,ext ended release 24 hr TAKE ONE CAPSULE BY MOUTH EVERY MORNING 01/27 completed Not Available Not Available Not Available doxycycline hyclate 100 mg capsule TAKE 1 CAPSULE BY MOUTH TWICE DAILY 08/09 completed Not Available Not Available Not Available lamotrigine 200 mg tablet TAKE 1 TABLET BY MOUTH AT BEDTIME 08/09 completed Not Available Not Available Not Available venlafaxine 75 mg tablet Take 1 tablet twice a day by oral route. active Not Available Not Available No t Available clindamycin HCl 300 mg capsule TAKE 1 CAPSULE BY MOUTH TWICE DAILY FOR 10 DAYS 01/27 completed Not Available Not Available Not Available pravastatin 40 mg tablet 08/09 completed Not Available Not Available Not Available metoprolol succinate ER 50 mg tablet,exte nded release 24 hr TAKE 1 TABLET BY MOUTH EVERY MORNING 06/11 completed Not Available Not Available Not Available clonazepam 0.5 mg tablet TAKE 1 TABLET BY MOUTH THREE TIMES DAILY NEEDED active Not Available Not Available No t Available clonazepam 1 mg tablet TAKE 1/2 TABLET BY MOUTH THREE TIMES DAILY 08/09 completed Not Available Not Available Not Available venlafaxine ER 150 mg capsule,ext ended release 24 hr TAKE 1 CAPSULE BY MOUTH EVERY DAY active Not Available Not Available No t Available sulfamethox azole 800 mg-trimetho prim 160 mg tablet Take 1 tablet every 12 hours by oral route with meals for 7 days. 08/09 completed Not Available Not Available Not Available quetiapine 100 mg tablet TAKE 1 TABLET BY MOUTH TWICE DAILY WITH A 25MG TABLET. active Not Available Not Available No t Available lamotrigine 25 mg tablet TAKE 2 TABLETS BY MOUTH DAILY active Not Available Not Available No t Available oxycodone-a cetaminophe n 5 mg-325 mg tablet TAKE 1 TO 2 TABLETS BY MOUTH EVERY 4 HOURS NEEDED FOR PAIN active Not Available Not Available No t Available ofloxacin 0.3 % ear drops INSTILL 10 DROPS TO AFFECTED EAR ONCE DAILY 08/09 completed Not Available Not Available Not Available tamsulosin 0.4 mg capsule TAKE 1 CAPSULE BY MOUTH TWICE DAILY 01/27 completed Not Available Not Available Not Available buspirone 10 mg tablet TAKE 2 TABLETS BY MOUTH THREE TIMES DAILY 08/09 completed Not Available Not Available Not Available oxcarbazepi ne 600 mg tablet TAKE 1 TABLET BY MOUTH EVERY NIGHT AT BEDTIME 08/09 completed Not Available Not Available Not Available ergocalcife rol (vitamin D2) 1,250 mcg (50,000 unit) capsule TAKE 1 CAPSULE BY MOUTH EVERY WEEK 08/09 completed Not Available Not Available Not Available testosteron e cypionate 200 mg/mL intramuscul ar oil ADMINISTE R 1 ML IN THE MUSCLE EVERY 2 WEEKS active Not Available Not Available No t Available methylpredn isolone 4 mg tablets in a dose pack FOLLOW PACKAGE DIRECTION S active Not Available Not Available No t Available fluoxetine 20 mg capsule TAKE 2 CAPSULES BY MOUTH IN THE MORNING active Not Available Not Available No t Available BD Luer-Francisco Syringe 3 mL 21 gauge x 1 USE IN THE MUSCLE EVERY 2 WEEKS TO INJECT TESTOSTER ONE active Not Available Not Available No t Available escitalopra m 20 mg tablet TAKE 1 TABLET BY MOUTH IN THE MORNING 08/09 completed Not Available Not Available Not Available risperidone 0.5 mg disintegrat ing tablet TAKE 1/2 TABLET BY MOUTH EVERY DAY NEEDED active Not Available Not Available No t Available metformin ER 750 mg tablet,exte nded release 24 hr TAKE 1 TABLET BY MOUTH EVERY DAY 08/09 completed Not Available Not Available Not Available rosuvastati n 5 mg tablet TAKE 1 TABLET BY MOUTH AT BEDTIME 01/27 completed Not Available Not Available Not Available lisinopril active Not Available Not Av ailable Not Available pravastatin 08/09 completed Not Available Not Available Not Available BuSpar active Not Available Not Availa ble Not Available rosuvastati n active Not Available Not Available Not Available BD Ultra-Fine Short Pen Needle 31 gauge x 5/16 USE NIGHTLY DIRECTED WITH LANTUS active Not Available Not Available No t Available BD Integra Syringe 3 mL 21 gauge x 1 1/2 USE 1 SYRINGE NEEDED active Not Available Not Available No t Available quetiapine ER 200 mg tablet,exte nded release 24 hr TAKE 1 TABLET BY MOUTH EVERY DAY AT 6 PM 08/09 completed Not Available Not Available Not Available quetiapine ER 50 mg tablet,exte nded release 24 hr TAKE 1 TABLET BY MOUTH EVERY DAY 01/27 completed Not Available Not Available Not Available quetiapine ER 150 mg tablet,exte nded release 24 hr TAKE 1 TABLET BY MOUTH AT 6 PM 01/27 completed Not Available Not Available Not Available Ozempic 0.25 mg or 0.5 mg (2 mg/1.5 mL) subcutaneou s pen injector INJECT 0.5 MG UNDER THE SKIN WEEKLY 06/11 completed Not Available Not Available Not Available Ozempic active Not Available Not Avail able Not Available Dexcom G6 Transmitter device USE DIRECTED 08/09 completed Not Available Not Available Not Available Pataday Twice Daily Relief 0.1 % eye drops INSTILL 1 DROP INTO AFFECTED EYE(S) BY OPHTHALMI C ROUTE 2 TIMES PER DAY 2024 active Not Available Not Available Not Avai lable Ozempic 1 mg/dose (4 mg/3 mL) subcutaneou s pen injector INJECT 1 MG UNDER THE SKIN WEEKLY 01/27 completed Not Available Not Available Not Available Semglee (insulin glargine-yf gn) Pen 100 unit/mL (3 mL) subcutaneou s ADMINISTE R 12 UNITS UNDER THE SKIN EVERY DAY 08/09 completed Not Available Not Available Not Available Ozempic 2 mg/dose (8 mg/3 mL) subcutaneou s pen injector INJECT 2 MG UNDER THE SKIN ONE DAY A WEEK active Not Available Not Available No t Available Dexcom G7 Rn Recruitment USE DIRECTED AND CHANGE EVERY 10 DAYS 08/09 completed Not Available Not Available Not Available Dexcom G7 Sensor device USE DIRECTED active Not Available Not Available No t Available Ozempic 0.25 mg or 0.5 mg (2 mg/3 mL) subcutaneou s pen injector INJECT 0.25MG UNDER THE SKIN ONCE WEEKLY FOR 4 WEEKS THEN INCREASE TO 0.5MG ONCE WEEKLY 01/27 completed Not Available Not Available Not Available Vitals Date Recorded Body weight Oxygen saturation Oxygen saturation in Arterial blood by Pulse oximetry Heart rate Respiratory rate Body temperature Systolic blood pressure Provider Name and Address Organization Details Last Updated DateTime 3 072939. 12 g 99 % 99 % 105 /min 20 /min 99.2 [degF] 102 mm[Hg] DUARTE Barrientos NP Attn: [address] ,[address] [place], [address], [facility] 3 10:06:21 Date Recorded Body height Body mass index (BMI) Body weight Oxygen saturation Oxygen saturation in Arterial blood by Pulse oximetry Heart rate Respiratory rate Body temperature Systolic And Diastolic Provider Name and Address Organization Details Last Updated DateTime 5 185.42 cm 35.6 kg/m2 432598. 94 g 99 % 99 % 88 /min 17 /min 98.6 [degF] 126/74 mm[Hg] Fifi Jean MA [facility] 5 10:01:22 Date Recorded Body temperature Respiratory rate Heart rate Oxygen saturation Oxygen saturation in Arterial blood by Pulse oximetry Body height Body mass index (BMI) Body weight Systolic And Diastolic Provider Name and Address Organization Details Last Updated DateTime 4 97.9 [degF] 18 /min 103 /min 98 % 98 % 185.42 cm 36.9 kg/m2 821022. 86 g 130/82 mm[Hg] Fifi Jean MA [facility] 4 13:49:49 Social History Question Answer Notes LastModified by Organizat ion Details LastModified Time Tobacco Smoking Status Never Smoker Fifi Jean MA null, [facility] 01/28/2024 13:51:18 What Was The Date Of Your Most Recent Tobacco Screening? 08/09/2024 [email or web address] Information not available 08/09/2024 Sex: Unknown Functional Status None recorded. Mental Status None recorded. Family History Nothing Reported. Medical History Condition Response Coronary Artery Disease N Other N Atrial Fibrillation N High Blood Pressure N Depression N COPD N Blood Clots N Anxiety Disorder N Muscle, Joint, or Bone Problems N Arthritis N Acid Reflux (GERD) N Cancer N Stroke N ADHD N High Cholesterol N Liver Disease N Schizophrenia N Headaches N Kidney or Bladder Problems N Thyroid Problems N GI Problems N Have you had a mammogram in the last yea r? N Eating Disorder N Skin Problems N Anemia N Heart Attack ([place]) N Diabetes Y Seizures/Epilepsy N Have you had a colonoscopy in the last 1 0 years? N Asthma N Allergies N Have you had a PSA blood test in the las t year? N Substance Abuse N Hepatitis N Osteoporosis N Heart Failure N Immunizations Vaccine Type Date Status Note Provider Nam e and Address Organization Details Recorded Time Influenza, split virus, quadrivalent, preservative 1 julieta Barrientos NP Attn: [address] [place], [address], [facility] 08/29/2024 12:06:09 MMR 3 julieta Barrientos NP Attn: [address] [place], [address], [facility] 08/29/2024 12:06:09 MMR 7 julieta Barrientos NP Attn: Account[address] [place], [address], [facility] 08/29/2024 12:06:09 DTP 4 julieta Barrientos NP Attn: Account[address] [place], [address], [facility] 08/29/2024 12:06:09 DTP 8 julieta Barrientos NP Attn: Accounting[address] [place], [address], [facility] 08/29/2024 12:06:09 DTP 3 completed DUARTE Barrientos NP Attn: Accounting[address] [facility], [place], [place], [address] [place] [address], [facility] 08/29/2024 12:06:09 DTP 5 completed DUARTE Barrientos NP Attn: Accounting[address] [facility], [place], [place], [address] [place] [address], [facility] 08/29/2024 12:06:09 DTP 3 completed DUARTE Barrientos NP Attn: Accounting[address] [facility], [place], [place], [address] [place] [address], [facility] 08/29/2024 12:06:09 OPV 7 julieta Barrientos NP Attn: Accounting,[address] [facility], [place], [place], [address] [place] [address], [facility] 08/29/2024 12:06:09 OPV 8 julieta Barrientos NP Attn: Accounting,[address] [facility], [place], [place], [address] [place] [address], [facility] 08/29/2024 12:06:09 OPV 5 julieta Barrientos NP Attn: Accounting,[address] [facility], [place], [address], [facility] 08/29/2024 12:06:09 Influenza, split virus, trivalent, preservative 5 julieta Barrientos NP Attn: Accounting,[address] [facility], [place], [address], [place] [facility] 08/29/2024 12:06:09 Influenza, split virus, trivalent, PF 7 julieta Barrientos NP Attn: Accounting,[address] [facility], [place], [address], [facility] 08/29/2024 12:06:09 Td (adult), 2 Lf tetanus toxoid, preservative free, adsorbed 7 julieta Barrientos NP Attn: Accounting,[address] [facility], [place], [address], [place] [facility] 08/29/2024 12:06:09 Hep B, adolescent or pediatric 0 completed DUARTE Barrientos NP Attn: Accounting[address] [place], [address], [place] [facility] 08/29/2024 12:06:09 Hep B, adolescent or pediatric 9 completed DUARTE Barrientos NP Attn: Accounting,[address] [facility], [place], [address], [place] [facility] 08/29/2024 12:06:09 Hep B, adolescent or pediatric 9 completed DUARTE Barrientos NP Attn: Accounting[address] [place], [address], [place] [facility] 08/29/2024 12:06:09 Influenza, split virus, quadrivalent, PF 0 julieta Barrientos NP Attn: Accounting[address] [place], [address], [place] [facility] 08/29/2024 12:06:09 Influenza, split virus, quadrivalent, PF 9 julieta Barrientos NP Attn: Accounting[address] [place], [address], [place] [facility] 08/29/2024 12:06:09 Influenza, split virus, quadrivalent, PF 8 julieta Barrientos NP Attn: Accounting[address] [place], [address], [place] [facility] 08/29/2024 12:06:09 Influenza, split virus, quadrivalent, PF 1 julieta Barrientos NP Attn: Account[address] [place], [address], [place] [facility] 08/29/2024 12:06:09 Past Encounters Encounter ID Performer Location Encounter Start Date Encounter Closed Date Diagnosis/Indication Diagnosis SNOMED-CT Code Diagnosis ICD10 Code Diagnosis Note [id number] Sund[facility] Reyes [facility] [address] [place] [address] 06/11/2022 10:31:02 06/26/2022 14:56:50 Dysuria 16841887 R30.0 -To take as directed until lab work returns. We will call you with results of urine culture.-A dvised need to make apt for blood sugars.-To take full antibiotic s-Increase fluid intake-ER precaution s discussed. [id number] Sundar Reyes [facility] [address] [place] [address] 01/28/2024 13:46:42 01/28/2024 14:09:34 Otitis externa of right ear 3776111421 439777 H60.91 -To use as directed.- Ear recheck in 2 weeks-Incr ease fluid intake-Can use tylenol or ibuprofen for fever or pain-To alert clinic if any new or wosening symptoms. [id number] Sundar Reyes [facility] [employer] [facility] [address] [place] [address] 08/09/2024 09:40:12 08/09/2024 13:57:50 Allergic conjunctivitis of bilateral eyes 2886980725 98604 H10.13 -To use as directed. Acute urticaria 01046980 9 L50.9 -To use as directed.- To alert clinic if any new or worsening symptoms-E R precaution s discussed. Obese class II [id number] 1 40235 E66.812 Health Concerns Section Related Observation LastModified by Organization Detai ls LastModified Time None Recorded Concern Status LastModified by Organization Details LastModified Time None Recorded Advance Directives Directive None Recorded Payers Insurance Date Sequence Insurance Name Policy Number Policy Kovacs Covered Member ID Kovacs Member ID Guarantor Name 09/01/2024 1 [facility] [id number] Ernst Kelley [id number] Ernst Kelley Notes Date Note Type Note Provider Name and Address Organization Details Recorded Time 06/11/2022 text/html Urinary FrequencyReported bypatient.Quality:symp toms worse in the evening; symptoms worse during the day Severity:moderate Duration:every 15 minutes Context:success with short term antibiotics Associated Symptoms:no abdominal pain; no chills; no constipation; no diarrhea; no blood in semen; no blood in the urine; no impotence; normal libido; no nausea; no vomiting; no nocturia; no urine odor; no straining; no incontinence; no fever;back pain;dribbling;pain during urination;incomplete emptying of bladder;hesitancy;feel ings of urgency Pt into [facility] for urinary frequency, hesitancy and pain. Pt reports symptoms started one week ago. Reports history of UTI 2 months ago. No N/V/D. Does not bilateral back pain and flank pain. Also reports blood sugar has been high. Recently restarted taking insulin and metformin, as he states he was not taking it before. Denies any concern for STI's. DUARTE Barrientos NP Attn: [address] [place], [address], [facility] 06/24/2022 10:07:35 01/28/2024 text/html EaracheReported bypatient.Location:rig ht Quality:aching Pt into school based clinic for R ear pain. Pt reports pain started a few days ago.feels swollen. No fever. No ear drainage. No N/V/D. No rash. Denies any sore throat. Has not taken anything for symptoms. DUARTE Barrientos NP Attn: [address] [place], [address], [facility] 04/05/2024 15:19:50 08/09/2024 text/html Pediatric Rash/S kin LesionReported bypatient.Location:fac e Quality:not painful;itchy Onset/Timindays ago Context:no new detergents or skin products; no contacts with similar rash Aggravating Factors:nothing makes it worse Associated Symptoms:no fever; no cold symptoms Pt into school based clinic for bilateral eyelid swelling that started yesterday. Pt reports he has been outside and noticed swelling a couple days ago. Has taken benadryl a few times to help. Also reports itching. Has a history of DM. Is checking blood sugars regurarly. DUARTE Barrientos NP Attn: [address] [place], [address], [place] [facility] 08/29/2024 12:09:07
--- NOTE | 2024-11-14 15:25 | ECG_ITS ---
Test Date: 2024-11-14 15:31:02 Measurements Intervals Warren Rate: 138 P: 0 SC: 0 QRS: 30 QRSD: 90 T: 57 QT: 299 QTc: 453 Interpretive Statements ATRIAL FIBRILLATION WITH RAPID VENTRICULAR RESPONSE ABNORMAL RHYTHM ECG No previous ECG available for comparison Electronically Signed On 11-15-2024 16:31:43 CDT by Jay Yang M.D.
--- NOTE | 2024-11-14 16:07 | ED.GENADULT ---
HPI - General Adult General Chief complaint: Chest Pain Stated complaint: tachycardic, chest pain Time Seen by Provider: 11/14/24 15:59 History of Present Illness HPI narrative: 44-year-old chest pain presents to the emergency department for evaluation for tachycardia and left-sided chest pain. Does report a prior history of anxiety and depression and thought he was having increased anxiety causing his chest tightness on Thursday and Thursday but today the patient's watch told him that his heart rate was elevated. Patient called his primary care physician and he was instructed to present to the emergency department for evaluation. Patient denies any prior cardiac history. Patient denies any significant family history of coronary disease other than uncle who had congenital heart disease. Patient reports that he does drink a lot of caffeine daily. Related Data Home Medications ?Medication ?Instructions ?Recorded ?Confirmed ?Last Taken ?Type Clonazepam 0.5 mg BYMOUTH BID 12/16/22 11/14/24 11/14/24 History quetiapine 150 mg tablet,extended 100 mg PO QHS 12/16/22 11/14/24 11/13/24 History release 24 hr buspirone 10 mg tablet 20 mg PO BID 11/14/24 11/14/24 11/14/24 History clonidine HCl 0.1 mg tablet 0.05 mg PO QID 11/14/24 11/14/24 11/14/24 History escitalopram oxalate 20 mg tablet 20 mg PO DAILY 11/14/24 11/14/24 11/14/24 History semaglutide 2 mg/dose (8 mg/3 mL) 2 mg subcut WEEKLY 11/14/24 11/14/24 11/06/24 History subcutaneous pen injector (Ozempic) venlafaxine 150 mg 150 mg PO QPM 11/14/24 11/14/24 11/13/24 History capsule,extended release 24 hr Allergies Allergy/AdvReac Type Severity Reaction Status Date / Time No Known Allergies Allergy Unverified 05/23/24 08:00 Review of Systems Review of Systems: All systems reviewed & are unremarkable except as noted in HPI and below PMFSH Past Medical History Medical History (Updated 11/14/24 @ 18:10 by Samia Pearson PA-C) Fatty infiltration of liver Depression with anxiety Type 2 diabetes mellitus Obstructive sleep apnea Anxiety Surgical History Surgical History History of testicular surgery Family History Family History Father Diabetes mellitus Social History Social History (Updated 11/14/24 @ 18:08 by Samia Pearson PA-C) Social History: Surrogate medical decision maker: Code status: Full code. Smoking status: Never smoker Alcohol intake: current Drinks per week: 1 Alcohol use details: social alcohol use in moderation, perhaps a couple of beers a week Substance use: never Substance use type: does not use Do You Feel Safe in your Home?: Yes Lack of Transportation: No Lack of Food: Never True Current Housing: I Have Housing Concerned About Future Housing: No Difficulty Paying Gas/Electric Bills: No Difficulty Paying for Meds: No Currently Unemployed: No Education: Associate Degree Difficulty w/ Childcare or Family Care: No Living arrangements: with family Spiritual care concerns: No Exam Narrative: APPEARANCE: Well appearing, no pain, no distress, well-nourished. HEAD: normocephalic, atraumatic. EYES: PERRLA/EOMI, conjunctivae clear. NOSE: Normal no drainage EARS:TMS clear with good light reflex. THROAT: Pharynx clear, no exudate. NECK: Supple. No adenopathy, no masses. RESPIRATORY: Airway patent, respirations nonlabored. Clear to auscultation bilaterally, no rales, rhonchi, wheezing. CARDIOVASCULAR: AFib with RVR ABDOMINAL: Soft, nontender, nondistended, normal bowel sounds MUSCULOSKELETAL: Moves all extremities. Strength/ROM intact, No edema, No calf tenderness. NEURO: Alert. Cranial nerves II through XII intact. Grossly intact SKIN: Warm, dry. Normal Color Course Vital Signs Vital signs: Vital Signs Temperature 98.0 F 11/14/24 15:34 Pulse Rate 46 L 11/14/24 15:34 Respiratory Rate 22 H 11/14/24 15:34 Blood Pressure 136/85 11/14/24 15:34 Pulse Oximetry 100 11/14/24 15:34 Oxygen Delivery Room Air 11/14/24 15:34 Temperature 98.1 F 11/14/24 20:00 Pulse Rate 110 H 11/14/24 22:00 Respiratory Rate 14 11/14/24 20:00 Blood Pressure 114/79 11/14/24 20:00 Pulse Oximetry 99 11/14/24 20:00 Oxygen Delivery Room Air 11/14/24 20:00 Medical Decision Making MDM Narrative Medical decision making narrative: 44-year-old male presents emergency department for evaluation for AFib with RVR. Patient arrived with a heart rate in the 130s that was AFib with rapid ventricular response. Patient is afebrile with no leukocytosis hemoglobin of 17.4. Patient's D-dimer was not elevated. INR is 1.0. No acute abnormalities on his CMP and patient's TSH and Mag were within normal limits. Patient was treated with a dose of IV Lopressor and this did help to control his heart rate patient's heart rate is now in the 90s but is still AFib. Has no prior diagnosis AFib. Chest x-ray showed no acute cardiopulmonary abnormality. Patient was describing left-sided chest pain with associated shortness of breath and due to high concern for pulmonary embolism CTA was ordered. Patient was updated results of his workup and he was willing to stay for further evaluation and workup for his AFib with RVR. Prior to going to the floor patient was also treated with 10 mg of IV Cardizem and started on a Cardizem bolus. Did help to control his heart rate but he was still and AFib. Critical Care Procedure Note Authorized and Performed by: Ryland Kearney Total critical care time: Approximately 36 minutes Due to a high probability of clinically significant, life threatening deterioration, the patient required my highest level of preparedness to intervene emergently and I personally spent this critical care time directly and personally managing the patient. This critical care time included obtaining a history; examining the patient; pulse oximetry; ordering and review of studies; arranging urgent treatment with development of a management plan; evaluation of patient's response to treatment; frequent reassessment; and, discussions with other providers. This critical care time was performed to assess and manage the high probability of imminent, life-threatening deterioration that could result in multi-organ failure. It was exclusive of separately billable procedures and treating other patients and teaching time. Please see MDM section and the rest of the note for further information on patient assessment and treatment. Differential Diagnosis Differential Diagnosis: Hyperthyroid, hypo magnesemia, AFib with RVR, a flutter, pulmonary embolism, pneumonia, COVID, RSV, influenza Vital Signs Vital Signs: Vital Signs Temperature 98.0 F 11/14/24 15:34 Pulse Rate 46 L 11/14/24 15:34 Respiratory Rate 22 H 11/14/24 15:34 Blood Pressure 136/85 11/14/24 15:34 Pulse Oximetry 100 11/14/24 15:34 Oxygen Delivery Room Air 11/14/24 15:34 Temperature 98.1 F 11/14/24 20:00 Pulse Rate 110 H 11/14/24 22:00 Respiratory Rate 14 11/14/24 20:00 Blood Pressure 114/79 11/14/24 20:00 Pulse Oximetry 99 11/14/24 20:00 Oxygen Delivery Room Air 11/14/24 20:00 Lab Data Lab results reviewed: Yes I reviewed the patient's lab results. 11/14/24 16:16 11/14/24 16:16 Labs: Lab Results 11/14/24 11/14/24 Range/Units 16:16 16:16 WBC 8.9 (4.5-10.0) K/mm3 RBC 5.68 (4.6-6.20) M/mm3 Hgb 17.4 (14.0-18.0) g/dL Hct 47.8 (42.0-52.0) % MCV 84.2 (80-100) fl MCH 30.6 (26-34) pg MCHC 36.4 H (32-36) g/dl RDW 12.3 (11.5-14.5) % Plt Count 219 (150-375) k/mm3 MPV 10.3 (7.4-10.4) fl Immature Gran % (Auto) 0.2 (0-0.5) % Neut % (Auto) 56.5 (45.5-73.1) % Lymph % (Auto) 32.3 (18.3-44.2) % [place] % (Auto) 8.7 H (2.6-8.5) % Eos % (Auto) 1.2 (0-4.4) % Baso % (Auto) 1.1 (0.2-1.2) % Lymph # (Auto) 2.86 (0.9-3.2) K/mm3 [place] # (Auto) 0.8 H (0.1-0.6) K/mm3 Eos # (Auto) 0.1 (0-0.3) K/mm3 Baso # (Auto) 0.1 (0.0-0.1) K/mm3 Abs Immat Gran (auto) 0.02 (0.00-0.031) K/mm3 Absolute Neuts (auto) 5.0 (1.3-6.7) K/mm3 Absolute Nucleated RBC 0.000 (0.0-0.012) K/mm3 Nucleated RBC % 0.0 (0.0-0.2) % PT 13.5 (11.1-14.7) Seconds INR 1.0 APTT 27.2 (22.3-36.8) Seconds D-Dimer < 0.27 (<0.48) ug/mL Sodium 139 (137-145) mmol/L Potassium 3.7 (3.4-5.0) mmol/L Chloride 107 (98-107) mmol/L Carbon Dioxide 24 (22-30) mmol/L Anion Gap 8 (4-12) mmol/L BUN 20 (9-20) mg/dL Creatinine 1.08 (0.7-1.3) mg/dL Estim Creat Clear Calc 110 ml/min Estimated GFR > 60 (59 - ) Glucose 195 H (65-110) mg/dL Calcium 8.6 (8.4-10.2) mg/dL Magnesium 2.0 Cancelled (1.6-2.3) mg/dL Total Bilirubin 2.0 H (0.2-1.3) mg/dL AST 29 (17-59) U/L ALT 39 (6-50) U/L Alkaline Phosphatase 53 (38-126) U/L Troponin I < 0.012 (0.000-0.034) ng/mL Total Protein 6.9 (6.3-8.2) g/dL Albumin 4.3 (3.5-5.1) g/dL Lipase 143 (23-300) U/L TSH (Reflex) 0.872 (0.465-4.68) uIU/mL Imaging Data Radiologist's impression: Impressions Chest X-Ray 11/14/24 15:55 IMPRESSION: Mediastinal lymphadenopathy without focal infiltrate or effusion. Chest CTA 11/14/24 17:38 IMPRESSION: No pulmonary embolus. No thoracic aortic dissection. Calcified posterior mediastinal well-circumscribed multilobulated mass for which the differential diagnosis is broad. This may represent a calcified fibrous pseudotumor of the posterior mediastinum,a nerve sheath tumor, a neural crest tumor or less likely, calcified granulomatous disease. Contrast enhanced MRI would provide additional information, if the patient is clinically able. ECG Data EKG #1: EKG Interpretation: tachycardia, atrial fibrillation, non-specific ST changes, normal QRS, normal QT and NL axis Critical Care Time Critical Care Time Critical Care Time: Yes Total Critical Care Time: 36 Discharge Plan Discharge Clinical Impression: Atrial fibrillation with rapid ventricular response Patient Disposition: Still a Patient Condition: Serious
[2024-11-14] MEDS: ASPIRIN 81 MG CHEWABLE TABLET 324 MG PO (16:19)
[2024-11-14] MEDS: LACTATED RINGERS 1,000 ML 999 ML IV CONT (16:19)
[2024-11-14] MEDS: METOPROLOL TARTRATE INJ 5 MG/5 ML VIAL IV PUSH (16:19)
[2024-11-14 16:24] LABS: Hematocrit 47.8 % (42.0-52.0); Hemoglobin 17.4 g/dL (14.0-18.0); Immature Granulocyte Percent A 0.2 % (0-0.5); Lymphocytes Absolute Auto 2.86 K/mm3 (0.9-3.2); Mean Corpuscular HGB Conc 36.4 g/dl (32-36); Mean Corpuscular Hemoglobin 30.6 pg (26-34); Mean Corpuscular Volume 84.2 fl (80-100); Nucleated Red Blood Cells Absolute Auto 0.000 K/mm3 (0.0-0.012); Nucleated Red Blood Cells Perc 0.0 % (0.0-0.2); Platelet Count Result 219 k/mm3 (150-375); Red Blood Count 5.68 M/mm3 (4.6-6.20); White Blood Count 8.9 K/mm3 (4.5-10.0)
--- OUTSIDE RECORDS SUMMARY | 2024-11-14 16:32 | XMS_ITS | Clinical Summary ---
Author Organization [facility] Address [facility] [place] [address] Care Team Providers Care Bag Machine Operator Helper Name Role Phone Donaldo Jenkins MD Primary Care Provider Allergies No known active allergies Medications * [...] often do you attend chur ch or church services? 1 to 4 times per year [...] and heating? 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 HEP B CORE IGM NON-REACTI VE NON-REACT JAISON 11/13/2016 9:05 AM CDT [facility] Comment: IgM ANTI HBc NOT DETECTED. DOES NOT EXCLUDE THE POSSIBILITY OF EXPOSURE TO OR INFECTION WITH HBV. NO RETEST REQUIRED. HAV IGM NON-REACTI VE NON-REACT JAISON 11/13/2016 9:05 AM CDT [facility] Comment: IgM ANTI HAV NOT DETECTED. DOES NOT EXCLUDE THE POSSIBILITY OF EXPOSURE TO OR INFECTION WITH HAV. LEVELS OF IgM ANTI HAV MAY BE BELOW THE CUTOFF IN EARLY INFECTION. HEPATITIS C AB NON-REACTI VE NON-REACT JAISON 11/13/2016 9:05 AM CDT [facility] Comment: ANTIBODIES TO HCV NOT DETECTED. DOES NOT EXCLUDE THE POSSIBILITY OF EXPOSURE TO HCV. 11/12/2016 8:00 AM CDT 11/12/2016 8:03 AM CDT us Generic Conversion Md [facility] Final R esult [facility] [address] [place] [address], [id number] from Last 3 Months or Most Recently Relevant to Health Maintenance Insurance [facility] Advance Directives * Full Code (Latest Code Status on File) Date Activated Date Inactivated Comments 02/15/2020 10:36 AM 02/22/2020 5:06 PM * Full Code Date Activated Date Inactivated Comments 01/10/2020 8:45 PM 01/16/2020 4:06 PM Care Teams Bag Machine Operator Helper Relationship Specialty Start Date End Date Donaldo Jenkins MD [address] [place] [address] PCP - General FAMILY PRACTICE 02/15/19
--- OUTSIDE RECORDS SUMMARY | 2024-11-14 16:32 | XMS_ITS | Clinical Summary ---
Author Organization [facility] Address [address] [place] [phone] Phone Care Team Providers Care Laborer Yard Name Role Phone Donaldo Jenkins MD Primary Care Provider [phone] Allergies No known active allergies Medications Cetirizine [...] patient's age to complete this topic Insurance [facility] [address] Care Teams Laborer Yard Relationship Specialty Start Date End Date Donaldo Jenkins MD [address] [address] PCP - General Family Medicine 11/08/18
--- OUTSIDE RECORDS SUMMARY | 2024-11-14 16:32 | XMS_ITS | Clinical Summary ---
Author Organization [facility] Address [address] [place] [address] Care Team Providers Care Telemarketing Manager Name Role Phone Donaldo Jenkins MD Primary Care Provider Source Comments [facility],non-owned Affiliates and Associated Physician Practices is amultiple site organization consisting of ambulatory clinics and hospital sitesin [place], [place], [place] and [place]. This disclosure is being madepursuant to the Care Everywhere program and may not contain all information available regarding this patient. Last updated 18.[facility] Allergies No known active allergies Medications * [...] on file Legal Sex Male 5:27 PM AUTOTRANSFUSIONIST Gender Identity Not on file Sexual Orientation Not on file Last Filed Vital Signs Vital Sign Reading Time Taken Comments Blood Pressure 138/81 02/28/2019 10:55 AM AUTOTRANSFUSIONIST Pulse 78 02/28/2019 10:55 AM AUTOTRANSFUSIONIST Temperature 36.7 C (98 F) 02/28/2019 10:55 AM AUTOTRANSFUSIONIST Respiratory Rate 18 02/28/2019 10:55 AM AUTOTRANSFUSIONIST Oxygen Saturation 100% 02/28/2019 10:55 AM AUTOTRANSFUSIONIST Inhaled Oxygen Concentration - - Weight 145.2 kg (320 lb) 02/28/2019 10:55 AM AUTOTRANSFUSIONIST Height 182.9 cm (6') 02/28/2019 10:55 AM AUTOTRANSFUSIONIST Body Mass Index 43.4 02/28/2019 10:55 AM AUTOTRANSFUSIONIST Plan of Treatment Health Maintenance Due Date [...] patient's age to complete this topic Insurance [facility] Care Teams Telemarketing Manager Relationship Specialty [place] [address] [place] [address] [place] [id number] PCP - General 11/14/16
--- OUTSIDE RECORDS SUMMARY | 2024-11-14 16:32 | XMS_ITS | Referral Summary ---
Author Organization [facility] [address] [facility] Address [address] [place] [address] Care Team Providers Care Drama Director Name Role Phone Radha Peck MD Unavailable [phone] Amber Queen NP Primary Care Provider [phone] Encounters Date Type Department Care Team Description 09/01/2024 3:45 PM CDT Office Visit [facility] Orthopedic and Sports Medicine [address] [place] [id number] Kia Ruiz PA History of arthroscopy [...] on file Legal Sex Male 9:02 AM IC DESIGNER STANDARD CELLS Gender Identity Not on file Sexual Orientation Not on file Last Filed Vital Signs Vital Sign Reading Time Taken Comments Blood Pressure 118/78 09/01/2024 3:39 PM CDT Pulse 60 09/01/2024 3:39 PM CDT Temperature 36.3 C (97.4 F) 06/06/2024 4:11 PM IC DESIGNER STANDARD CELLS Respiratory Rate 18 06/21/2024 3:50 PM IC DESIGNER STANDARD CELLS Oxygen Saturation 95% 06/06/2024 4:11 PM IC DESIGNER STANDARD CELLS Inhaled Oxygen Concentration - - Weight 127.9 kg (282 lb) 09/01/2024 3:39 PM CDT Height 182.9 cm (6') 09/01/2024 3:39 PM CDT Body Mass Index 38.25 09/01/2024 3:39 PM CDT Plan of Treatment Not on file Medical Devices Implanted Type Area Lieutenant General Device Identifier Shelf Expiration Date Model / Serial / Lot [employer] Swivelock C 4.75mm 19.1mm Closed Eyelet Vent Wilmore Suture Ar-[id number] - [id number] Implanted:Qty: 1 on 06/06/2024 by Rosales Huynh MD at [facility] Right: Shoulder [employer] 12/26/2027 AR-[id number] / / [id number] Procedures Procedure Name Priority Date/Time Associated Diagnosis Comments HEMOGLOBIN A1C Routine 02/29/2024 10:19 AM IC DESIGNER STANDARD CELLS Pre-op testing EGFR Routine 08/30/2022 5:57 AM CDT from Last 3 Months or Most Recently Relevant to Health Maintenance Results * Hemoglobin A1c (02/29/2024 10:19 AM IC DESIGNER STANDARD CELLS) Hgb A1C 5.5 4.0 - 5.6 % Comment:Testing performed by : [facility], [address] [place] [address], [place]., [address] Estimated Average Glucose 111 mg/dL JUNG MATTHEW ([place]) Comment: The ADA recommends reporting an estimated Average Glucose (eAG) with all Hemoglobin A1c results using the equation derived from a study of 507 normal and diabetic adults. Minority populations were underrepresented and children were not included. (Diabetes Care 31:5679-0749, 2008). The eAG is not equivalent to a fasting glucose. Testing performed by: [facility], [address] [place] [address]., [address] Blood 02/29/2024 10:1 9 AM IC DESIGNER STANDARD CELLS 02/29/2024 1:23 PM IC DESIGNER STANDARD CELLS us Rosales Huynh MD LAB BLOOD ORDERABLES Final R esult JUNG MATTHEW ([place]) [address] [place] [address] Department [place] [address] * eGFR (08/30/2022 5:57 AM CDT) eGFR 113 mL/min/1. 73 m2 JUNG TIFF ([place]) Comment: Interpretive Data Reference Interval Normal >/= [...] Fi nal Result [facility]) [address] [facility] [place] [address] from Last 3 Months or Most Recently Relevant to Health Maintenance [place] [address] [place] [address] CHOICE PLUS [facility] CHOICE PLUS [facility] CHOICE PLUS Advance Directives For more information, please contact: [phone] * Full Code (Latest Code Status on File) Date Activated Date Inactivated Comments 08/25/2022 10:11 PM 09/01/2022 2:21 PM * Full Code Date Activated Date Inactivated Comments 08/25/2022 4:15 PM 08/25/2022 10:11 PM Care Teams Drama Director Relationship Specialty Start Date End Date Amber Queen NP [address] [place] [address] PCP - General Nurse Practitioner 05/18/24 Radha Peck MD Consulting Physician Urology 08/31/22
--- OUTSIDE RECORDS SUMMARY | 2024-11-14 16:32 | XMS_ITS | Clinical Summary ---
Author Organization [facility] [address] [facility] lto Address [address] [address] Care Team Providers Care Silk Screener Name Role Phone Radha Peck MD Unavailable [phone] Amber Queen NP Primary Care Provider [phone] Allergies No known active allergies Medications venlafaxine [...] Description 09/01/2024 3:45 PM CDT Office Visit [facility] Medical Group Orthopedic and Sports Medicine [address] [place] [phone] Kia Ruiz PA History of arthroscopy [...] on file Legal Sex Male 9:02 AM NEGOTIATOR SALES Gender Identity Not on file Sexual Orientation Not on file Obstetrics History Last Filed Vital Signs Vital Sign Reading Time Taken Comments Blood Pressure 118/78 09/01/2024 3:39 PM CDT Pulse 60 09/01/2024 3:39 PM CDT Temperature 36.3 C (97.4 F) 06/06/2024 4:11 PM NEGOTIATOR SALES Respiratory Rate 18 06/21/2024 3:50 PM NEGOTIATOR SALES Oxygen Saturation 95% 06/06/2024 4:11 PM NEGOTIATOR SALES Inhaled Oxygen Concentration - - Weight 127.9 [...] this topic Medical Devices Implanted Type Area Water Systems Engineer Device Identifier Shelf Expiration Date Model / Serial / Lot [employer] Rachell C 4.75mm 19.1mm Closed Eyelet Vent Ryan Suture Ar-[id number] - [id number] Implanted:Qty: 1 on 06/06/2024 by Rosales Huynh MD at [facility] Right: Shoulder [employer] 12/26/2027 AR-[id number] / / [id number] Procedures Procedure Name Priority Date/Time Associated Diagnosis Comments HEMOGLOBIN A1C Routine 02/29/2024 10:19 AM NEGOTIATOR SALES Pre-op testing EGFR Routine 08/30/2022 5:57 AM CDT from Last 3 Months or Most Recently Relevant to Health Maintenance Results * Hemoglobin A1c (02/29/2024 10:19 AM NEGOTIATOR SALES) Hgb A1C 5.5 4.0 - 5.6 % Comment:Testing performed by : [facility], [address] [place] [address]., [id number] Estimated Average Glucose 111 mg/dL JUNG MATTHEW ([place]) Comment: The ADA recommends reporting an estimated Average Glucose (eAG) with all Hemoglobin A1c results using the equation derived from a study of 507 normal and diabetic adults. Minority populations were underrepresented and children were not included. (Diabetes Care 31:5100-5514, 2008). The eAG is not equivalent to a fasting glucose. Testing performed by: [facility], [address] [place] [address]., [address] Blood 02/29/2024 10:1 9 AM NEGOTIATOR SALES 02/29/2024 1:23 PM NEGOTIATOR SALES us Rosales Huynh MD LAB BLOOD ORDERABLES Final R esult JUNG MATTHEW ([place]) [address] [facility] Department [place] [address] * eGFR (08/30/2022 5:57 AM CDT) eGFR 113 mL/min/1. 73 m2 JASONSTEPHANIE MATTHEW ([place]) Comment: Interpretive Data Reference Interval Normal >/= [...] ORDERABLES nal Result JUNG MATTHEW ([place]) [address] [facility] Department [place] [address] from Last 3 Months or Most Recently Relevant to Health Maintenance [place] [address] [place] [address] CHOICE PLUS [facility] [place] [address] [place] [address] [facility] CHOICE PLUS Advance Directives For more information, please contact: [phone] * Full Code (Latest Code Status on File) Date Activated Date Inactivated Comments 08/25/2022 10:11 PM 09/01/2022 2:21 PM * Full Code Date Activated Date Inactivated Comments 08/25/2022 4:15 PM 08/25/2022 10:11 PM Care Teams Silk Screener Relationship Specialty Start Date End Date Amber Queen NP [address] [place] [address] PCP - General Nurse Practitioner 05/18/24 Radha Peck MD Consulting Physician Urology 08/31/22
[2024-11-14 16:45] LABS: INR 1.0; Prothrombin Time 13.5 Seconds (11.1-14.7)
[2024-11-14 16:46] LABS: Partial Thromboplastin Time 27.2 Seconds (22.3-36.8)
[2024-11-14 16:48] LABS: Alanine Aminotransferase 39 U/L (6-50); Albumin Level 4.3 g/dL (3.5-5.1); Alkaline Phosphatase 53 U/L (38-126); Anion Gap 8 mmol/L (4-12); Aspartate Amino Transferase 29 U/L (17-59); Bilirubin,Total 2.0 mg/dL (0.2-1.3); Blood Urea Nitrogen 20 mg/dL (9-20); Calcium 8.6 mg/dL (8.4-10.2); Carbon Dioxide 24 mmol/L (22-30); Chloride 107 mmol/L (98-107); Estimated CRCL calculation 110 ml/min; Estimated Glomerular Filt Rate > 60; Glucose 195 mg/dL (65-110); Lipase 143 U/L (23-300); Magnesium 2.0 mg/dL (1.6-2.3); Potassium 3.7 mmol/L (3.4-5.0); Sodium 139 mmol/L (137-145); Total Protein 6.9 g/dL (6.3-8.2)
[2024-11-14 16:55] LABS: Troponin I < 0.012 ng/mL (0.000-0.034)
[2024-11-14 17:14] LABS: Thyroid Stimulating Hormone Reflex 0.872 uIU/mL (0.465-4.68)
--- NOTE | 2024-11-14 17:55 | P.HP_ITS ---
H&P: HPI History of Present Illness Date/Time: 11/14/24 17:55 Chief Complaint: Fast heart rate, chest pain. Narrative: This is a pleasant 44-year-old male with type 2 diabetes mellitus and obstructive sleep apnea intolerant to CPAP who presented to the emergency department via private vehicle for evaluation of rapid heart rate and chest pain. He and his family returned from a trip to [place] on Thursday and their vacation was uneventful. Later on in the day on Thursday he began to feel anxious with mild breathlessness and tightness across his chest. He thought that he was probably anxious about going back to work on Thursday. Today he received multiple alerts from his smart watch that he was in atrial fibrillation and his doctor instructed him to come to the ED. Now that he knows that he is in regular rhythm, he is able to feel mild palpitations and that his heart rate is faster than usual. Heart rate has been as high as the upper 130s. He drinks alcohol very rarely and moderation any consumes approximately 44 oz of caffeine a day. As above, he is intolerant to his CPAP. No known history of cardiac dysrhythmia, valvular heart disease, or thyroid disease. He does not use illicit substances. He denies syncope, near syncope, lower extremity edema, calf pain, exertional chest pain, orthopnea, pleuritic pain, nausea, vomiting, and sweats. In the ED: On arrival his blood pressure is 136/85 and pulse was reportedly 46. Within about 10 minutes his heart rate shot up to 137 and he has been in rapid atrial fibrillation since that time. CMP and CBC were pretty unremarkable with the only outliers being a glucose of 195 and a total bilirubin of 2.0. Troponin and TSH were normal. Chest CTA was negative for pulmonary embolus. A well- circumscribed, multilobulated calcified mass is seen in the posterior mediastinum with a broad differential diagnosis. He was given metoprolol 5 mg IV without much improvement heart rate and he has since been started on a diltiazem drip. He is being admitted in this setting for further treatment and workup. Review of Systems Review of Systems: 12 systems were reviewed and are negativ e except for as per HPI. [facility] Past Medical History Medical History Fatty infiltration of liver Depression with anxiety Type 2 diabetes mellitus Obstructive sleep apnea Anxiety Surgical History Surgical History History of testicular surgery Family History Family History Father Diabetes mellitus Social History Social History (Updated 11/14/24 @ 22:35 by Samia Pearson PA-C) Social History: Surrogate medical decision maker: Trini Keeer, spouse. Code status: Full code. Smoking status: Never smoker Alcohol intake: current Drinks per week: 1 Alcohol use details: social alcohol use in moderation, perhaps a couple of beers a week Substance use: never Substance use type: does not use Do You Feel Safe in your Home?: Yes Lack of Transportation: No Lack of Food: Never True Current Housing: I Have Housing Concerned About Future Housing: No Difficulty Paying Gas/Electric Bills: No Difficulty Paying for Meds: No Currently Unemployed: No Education: Associate Degree Difficulty w/ Childcare or Family Care: No Living arrangements: with family Additional living arrangements comments: Lives with spouse in their 2 children in [place]. 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 Spiritual care concerns: No Meds Home Medications and Allergies Home Medications ?Medication ?Instructions ?Recorded ?Confirmed ?Type Clonazepam 0.5 mg BYMOUTH BID 12/16/22 11/14/24 History quetiapine 150 mg tablet,extended 100 mg PO QHS 12/16/22 11/14/24 History release 24 hr blood-glucose,oceanographer geological,cont #1 ea 01/12/24 11/14/24 Rx (Dexcom G7 Hospitality Housekeeper) syringe with needle, safety 3 mL #10 syringes 03/10/24 11/14/24 Rx 21 gauge x 1 1/2 (Monoject Safety Syringes) blood-glucose sensor (Dexcom G7 #1 ea 05/27/24 11/14/24 Rx Sensor device) buspirone 10 mg tablet 20 mg PO BID 11/14/24 11/14/24 History clonidine HCl 0.1 mg tablet 0.05 mg PO QID 11/14/24 11/14/24 History escitalopram oxalate 20 mg tablet 20 mg PO DAILY 11/14/24 11/14/24 History semaglutide 2 mg/dose (8 mg/3 mL) 2 mg subcut WEEKLY 11/14/24 11/14/24 History subcutaneous pen injector (Ozempic) venlafaxine 150 mg 150 mg PO QPM 11/14/24 11/14/24 History capsule,extended release 24 hr Allergies Allergy/AdvReac Type Severity Reaction Status Date / Time No Known Allergies Allergy Unverified 05/23/24 08:00 Vital Signs Vital Signs - 24 hr 11/14/24 15:34 11/14/24 15:49 11/14/24 16:09 Temperature 98.0 F Pulse Rate 46 L 137 H 122 H Respiratory Rate 22 H 20 16 Blood Pressure 136/85 114/71 133/74 Pulse Oximetry 100 98 99 Oxygen Delivery Room Air Room Air 11/14/24 16:19 11/14/24 16:44 Temperature Pulse Rate 130 H 109 H Respiratory Rate 16 Blood Pressure 131/74 Pulse Oximetry 99 Oxygen Delivery Exam Narrative: General: Nontoxic-appearing male in the semi-Spear position in bed in no acute distress. Weight: 132.5 kg. BMI: 39.6. HEENT: PERRL, EOMI. Sclera anicteric. Oral mucosa moist. Oropharynx clear. Neck: Supple. No obvious thyromegaly. Respiratory: Lungs are clear to auscultation bilaterally. Cardiovascular: Irregularly irregular rate and rhythm. Monitor shows atrial fibrillation with rates in the low 100s. Gastrointestinal: Abdomen is soft, nontender, and nondistended with positive bowel sounds. Skin: Warm and dry. No rash or lesions on limited exam. Extremities: No cyanosis, clubbing, or edema. Radial and pedal pulses intact. No palpable knots or cords. Neurological: Alert. Cranial nerves 2-12 are grossly intact. No gross focal deficits to casual conversation. Psychiatric: Pleasant and cooperative with normal mood and affect. Judgment and insight intact. H&P: Results Labs Labs: Short CBC 11/14/24 Range/Units 16:16 WBC 8.9 (4.5-10.0) K/mm3 Hgb 17.4 (14.0-18.0) g/dL Hct 47.8 (42.0-52.0) % Plt Count 219 (150-375) k/mm3 BMP 11/14/24 16:16 Sodium 139 Potassium 3.7 Chloride 107 Carbon Dioxide 24 BUN 20 Creatinine 1.08 Glucose 195 H Calcium 8.6 Cardiac Enzymes 11/14/24 Range/Units 16:16 Troponin I < 0.012 (0.000-0.034) ng/mL Liver Function 11/14/24 Range/Units 16:16 Total Bilirubin 2.0 H (0.2-1.3) mg/dL AST 29 (17-59) U/L ALT 39 (6-50) U/L Alkaline Phosphatase 53 (38-126) U/L Albumin 4.3 (3.5-5.1) g/dL Imaging Chest X-Ray 11/14/24 15:55 IMPRESSION: Mediastinal lymphadenopathy without focal infiltrate or effusion. Chest CTA 11/14/24 17:38 IMPRESSION: No pulmonary embolus. No thoracic aortic dissection. Calcified posterior mediastinal well-circumscribed multilobulated mass for which the differential diagnosis is broad. This may represent a calcified fibrous pseudotumor of the posterior mediastinum,a nerve sheath tumor, a neural crest tumor or less likely, calcified granulomatous disease. Contrast enhanced MRI would provide additional information, if the patient is clinically able. Assessment and Plan Assessment and plan (1) Atrial fibrillation with rapid ventricular response: Code(s): I48.91 - Unspecified atrial fibrillation Status: Acute (2) Chest pain: Code(s): R07.9 - Chest pain, unspecified Status: Acute (3) Mediastinal mass: Code(s): J98.59 - Other diseases of mediastinum, not elsewhere classified Status: Acute (4) Type 2 diabetes mellitus: Code(s): E11.9 - Type 2 diabetes mellitus without complications Status: Acute (5) Obstructive sleep apnea: Code(s): G47.33 - Obstructive sleep apnea (adult) (pediatric) Status: Acute Plan The patient presented to the emergency department for evaluation after his my watch alerted him to the fact that he was in atrial fibrillation as detailed in HPI. Labs, imaging, EKG, and all reports were personally reviewed. It sounds as though he may have gone into atrial fibrillation sometime on Thursday when he developed mild breathlessness and feelings of anxiety and tightness in his chest. He is currently on a diltiazem drip with improvement in his rate. No indication for anticoagulation at this time. Etiology is not entirely clear but may be related to untreated obstructive sleep apnea. We discussed the importance of CPAP and he is willing to try it again. An echocardiogram has been ordered for further workup. His TSH is within normal limits. Cardiology has been consulted for further recommendations. Incidentally a chest CT showed a calcified mass in the mediastinum with a broad differential diagnosis as detailed above. MRI with and without contrast has been ordered per Radiology recommendations. It does not seem to be causing compression and is probably not contributing to the atrial fibrillation. His home medications will be reviewed and resumed as appropriate. Findings and treatment plan were discussed with the patient. Questions were solicited and answered to satisfaction. The patient's medical management will be taken over by the hospitalist team in a.m. Quality VTE Prophylaxis VTE prophylaxis: pharmacologic ordered The patient has been admitted under observation status. Hospitalist MIPS Advance Care Plan I have confirmed that the patient's Advanced Care Plan is present, code status is documented, or surrogate decision maker is listed in patient medical record.: Yes Medication Reconciliation I have utilized all available resources to obtain, update and review the patients current medications (includes all prescriptions, OTC, herbals, cannabis, and nutritional supplements).: Yes
[2024-11-14] MEDS: dilTIAZem 100 MG/100 ML 100 MG/100 ML BAG IV CONT (18:24)
--- NOTE | 2024-11-14 18:27 | ECG_ITS ---
Test Date: 2024-11-14 18:32:06 Measurements Intervals [place] Rate: 92 P: 0 NC: 0 QRS: 34 QRSD: 96 T: 44 QT: 364 QTc: 451 Interpretive Statements ATRIAL FIBRILLATION ABNORMAL RHYTHM ECG Compared to ECG 11/14/2024 15:31:02 No significant changes Electronically Signed On 11-15-2024 16:34:03 CDT by Jay Yang M.D.
--- NOTE | 2024-11-14 18:50 | PC.NURSE ---
Per Dr. Kearney, Diltiazem paused d/t pt. HR 70-95. Pt. still in a-fib.
[2024-11-14 19:32] LABS: Troponin I < 0.012 ng/mL (0.000-0.034)
--- NOTE | 2024-11-14 20:23 | ADMGEN ---
This patient, Ernst Kelley, was admitted to IMU Room 210-01 at 1909. Patient/family oriented to hospital policies and general routines including ID bracelet, bed and alarms, visiting hours, pain management, procedures, bathroom and other care routines, personal items, smoking policy, room service/diet, and visiting hours. Information on how to activate the Rapid Response Team has been discussed. Patient/Family are encouraged to report perceived risks to care and to ask questions if they do not understand what they are told or what they should do.
[2024-11-14 21:59] LABS: Troponin I < 0.012 ng/mL (0.000-0.034)
[2024-11-14 23:11] LABS: Hemoglobin A1C 5.7 % (<5.7)
[2024-11-15] VITALS (19 sets, daily range): BP systolic 97–134; BP diastolic 60–79; PULSE 67–92; RESP 14–181; TEMP 36.4–36.9; O2SAT 95–100
--- NOTE | 2024-11-15 | ECHO_ITS ---
Patient Info Name: Ernst Kelley Age: 44 years : 1980 Gender: Male Ht: 71 in Wt: 292 lbs BSA: 2.63 m2 HR: 84 bpm BP: 125 / 71 mmHg Heart Rhythm: Atrial Fibrillation Technical Quality: Good Exam Date: 11/15/2024 11:25 AM Patient Status: I Admit Date: 11/14/2024 Exam Type: CA echo doppler color flow Complete two-dimensional, color flow and Doppler transthoracic echocardiogram is performed. Staff Referring Physician: Samia Pearson [facility] Pad Machine Operator: Stephy Nova Attending Provider: Tyler Baird Summary 1. Complete two-dimensional, color flow and Doppler transthoracic echocardiogram is performed. 2. Left ventricular chamber dimension is normal. 3. Left ventricular systolic function is normal, estimated at 60-65. 4. There is mildly increased left ventricular wall thickness. 5. Right ventricular systolic function is normal. 6. There is mild mitral valve regurgitation. Left Ventricle Left ventricular chamber dimension is normal. Left ventricular systolic function is normal, estimated at 60-65. There is mildly increased left ventricular wall thickness. The left ventricular diastolic function is indeterminate. Right Ventricle Right ventricular chamber dimension is normal. Right ventricular systolic function is normal. Left Atria Left atrial chamber dimension is normal. Right Atria Right atrial chamber dimension is normal. Atrial Septum Intact interatrial septum visualized by color flow imaging. Aortic Valve The aortic valve is probable trileaflet. There is no aortic valve stenosis. There is no aortic valve regurgitation. Pulmonic Valve The pulmonic valve is not well visualized. There is no pulmonic regurgitation. Mitral Valve The mitral valve has normal leaflets. There is mild mitral valve regurgitation. Tricuspid Valve There is trace tricuspid valve regurgitation. Pericardium/Pleural There is no pericardial effusion. Inferior Vena Cava Normal inferior vena cava with >50% collapse upon inspiration consistent with normal right atrial pressure, 3 mmHg. Aorta The aortic root size at the sinus of Valsalva is normal. Left Ventricular Outflow Tract Name Value Normal LVOT 2D LVOT Diameter 2.2 cm LVOT Doppler LVOT Peak Velocity 108 cm/s LVOT Peak Gradient 5 mmHg LVOT Mean Gradient 3 mmHg LVOT VTI 23 cm LVOT Stroke Volume 82 ml LVOT CO 6.9 l/min LVOT CI 2.6 l/min/m2 Pulmonic Valve Name Value Normal RVOT Doppler RVOT Peak Velocity 71 cm/s RVOT Peak Gradient 2 mmHg PV Doppler PV Peak Velocity 116 cm/s PV Peak Gradient 5 mmHg Mitral Valve Name Value Normal MV Diastolic Function MV E Peak Velocity 79 cm/s MV A Peak Velocity 38 cm/s MV E/A 2.1 MV Decel Time (PW) 218 ms MV Annular TDI MV E/e' (Septal) 8.0 MV E/e' (Lateral) 3.9 MV E/e' (Average) 6.0 Tricuspid Valve Name Value Normal Estimated PAP/RSVP RA Pressure 3 mmHg <=5 Aortic Valve Name Value Normal AV Doppler AV Peak Velocity 116 cm/s AV Peak Gradient 5 mmHg AV Area (Cont Eq Jose) 3.4 cm2 AV DI (Jose) 0.93 AV Regurgitation 2D LVOT Area 3.6 cm2 Ventricles Name Value Normal LV Dimensions 2D/MM IVS Diastolic Thickness (2D) 1.3 cm 0.6-1.0 LVID Diastole (2D) 5.1 cm 4.2-5.8 LVIW Diastolic Thickness (2D) 1.1 cm 0.6-1.0 LVID Systole (2D) 3.7 cm 2.5-4.0 LVOT Diameter 2.2 cm LV Mass (2D Cubed) 249.08 g 88.00-224.00 LV Mass Index (2D Cubed) 95 g/m2 49-115 Relative Wall Thickness (2D) 0.45 <=0.42 LV Fractional Shortening/Ejection Fraction 2D/MM LV Fractional Shortening (2D) 28 % 25-43 LV EF (2D Teichholz) 54 % LV Diastolic Volume (4C MOD) 124 ml LV EF (4C MOD) 58 % LV Diastolic Volume (2C MOD) 141 ml LV EF (2C MOD) 59 % LV Diastolic Volume (BP MOD) 134 ml 62-150 LV Diastolic Volume Index (BP MOD) 51 ml/m2 34-74 LV Systolic Volume (BP MOD) 57 ml 21-61 LV Systolic Volume Index (BP MOD) 22 ml/m2 11-31 LV EF (BP MOD) 57 % 52-72 LV Diastolic Length (4C) 8.6 cm LV Systolic Length (4C) 7.3 cm LV Stroke Volume (4C MOD) 72 ml Atria Name Value Normal LA Dimensions LA Volume (4C A-L) 60 ml LA Volume (BP A-L) 68 ml RA Dimensions RA Systolic Major [place] Length (4C) 5.5 cm 2.1-2.7 RA Area (4C) 19.7 cm2 <=18.0 Report Signatures
[2024-11-15 04:36] LABS: Anion Gap 7 mmol/L (4-12); Blood Urea Nitrogen 18 mg/dL (9-20); Calcium 8.5 mg/dL (8.4-10.2); Carbon Dioxide 24 mmol/L (22-30); Chloride 109 mmol/L (98-107); Estimated CRCL calculation 143 ml/min; Estimated Glomerular Filt Rate > 60; Glucose 104 mg/dL (65-110); Magnesium 1.9 mg/dL (1.6-2.3); Potassium 3.5 mmol/L (3.4-5.0); Sodium 140 mmol/L (137-145)
--- NOTE | 2024-11-15 08:02 | P.CONCA_ITS ---
Assessment and Plan Assessment and plan (1) Atrial fibrillation with rapid ventricular response: Code(s): I48.91 - Unspecified atrial fibrillation Status: Acute Assessment and Plan: This is a new diagnosis with likely recent onset. I explained the diagnosis of atrial fibrillation including pathophysiology, management strategies, risks/complications. We discussed options for management including rate control versus rhythm control. As this is the patient's 1st known occurrence of atrial fibrillation, mutual decision was made to proceed with rhythm control-plan for RAF/cardioversion tomorrow * Continue diltiazem drip for now * He will require anticoagulation for 30 days following DCCV. Will start Eliquis 5mg p.o. b.i.d. tonight * Check echo * Compliance with CPAP * NPO at midnight for RAF/DCCV tomorrow with anesthesia History of Present Illness History of Present Illness Consult date/time: 11/15/24 08:02 Requesting physician: Samia Pearson PA-C Consult reason: atrial fibrillation Reason For Visit: afib with rvr Narrative: Ernst Ugalde is a 44-year-old male with type 2 diabetes mellitus and sleep apnea. This is a patient who presented to the hospital with palpitations and chest pain. Cardiology is consulted for atrial fibrillation with rapid ventricular response. Patient began experiencing symptoms of palpitations and chest pain on Thursday which he attributed to anxiety. He made the decision to come to the emergency department because his watch notified him he was in atrial fibrillation with rapid heart rate. EKG in the emergency department confirmed atrial fibrillation. He denies history of atrial fibrillation or any other cardiac history. His heart rate is controlled now on a diltiazem drip and he no longer feels palpitations or chest pain. Review of Systems 2 Review of Systems: All systems reviewed & are unremarkable except as noted in HPI and below PMFSH Past Medical History Medical History Fatty infiltration of liver Depression with anxiety Type 2 diabetes mellitus Obstructive sleep apnea Anxiety Surgical History Surgical History History of testicular surgery Family History Family History Father Diabetes mellitus Social History Social History Social History: Surrogate medical decision maker: Trini Allie, spouse. Code status: Full code. Smoking status: Never smoker Alcohol intake: current Drinks per week: 1 Alcohol use details: social alcohol use in moderation, perhaps a couple of beers a week Substance use: never Substance use type: does not use Do You Feel Safe in your Home?: Yes Lack of Transportation: No Lack of Food: Never True Current Housing: I Have Housing Concerned About Future Housing: No Difficulty Paying Gas/Electric Bills: No Difficulty Paying for Meds: No Currently Unemployed: No Education: Associate Degree Difficulty w/ Childcare or Family Care: No Living arrangements: with family Additional living arrangements comments: Lives with spouse in their 2 children in [place]. 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 Spiritual care concerns: No Meds Home Medications and Allergies Home Medications ?Medication ?Instructions ?Recorded ?Confirmed ?Type Clonazepam 0.5 mg BYMOUTH BID 12/16/22 11/14/24 History quetiapine 150 mg tablet,extended 100 mg PO QHS 12/16/22 11/14/24 History release 24 hr blood-glucose,information systems project manager,cont #1 ea 01/12/24 11/14/24 Rx (Dexcom G7 Manager Of Community Relations) syringe with needle, safety 3 mL #10 syringes 03/10/24 11/14/24 Rx 21 gauge x 1 1/2 (Monoject Safety Syringes) blood-glucose sensor (Dexcom G7 #1 ea 05/27/24 11/14/24 Rx Sensor device) buspirone 10 mg tablet 20 mg PO BID 11/14/24 11/14/24 History clonidine HCl 0.1 mg tablet 0.05 mg PO QID 11/14/24 11/14/24 History escitalopram oxalate 20 mg tablet 20 mg PO DAILY 11/14/24 11/14/24 History semaglutide 2 mg/dose (8 mg/3 mL) 2 mg subcut WEEKLY 11/14/24 11/14/24 History subcutaneous pen injector (Ozempic) venlafaxine 150 mg 150 mg PO QPM 11/14/24 11/14/24 History capsule,extended release 24 hr Allergies Allergy/AdvReac Type Severity Reaction Status Date / Time No Known Allergies Allergy Unverified 05/23/24 08:00 Vital Signs Vital Signs - 24 hr 11/14/24 15:34 11/14/24 15:49 11/14/24 16:09 Temperature 36.7 C Pulse Rate 46 L 137 H 122 H Respiratory Rate 22 H 20 16 Blood Pressure 136/85 114/71 133/74 Pulse Oximetry 100 98 99 Oxygen Delivery Room Air Room Air 11/14/24 16:19 11/14/24 16:44 11/14/24 18:16 Temperature Pulse Rate 130 H 109 H 125 H Respiratory Rate 16 14 Blood Pressure 131/74 135/70 Pulse Oximetry 99 99 Oxygen Delivery 11/14/24 18:24 11/14/24 18:49 11/14/24 19:04 Temperature Pulse Rate 120 H 85 85 Respiratory Rate 16 Blood Pressure 110/74 Pulse Oximetry 99 Oxygen Delivery 11/14/24 20:00 11/14/24 20:00 11/14/24 20:00 Temperature 36.7 C Pulse Rate 75 119 H Respiratory Rate 14 Blood Pressure 114/79 Pulse Oximetry 99 Oxygen Delivery Room Air 11/14/24 21:40 11/14/24 22:00 11/14/24 22:00 Temperature Pulse Rate 107 H 104 H 110 H Respiratory Rate Blood Pressure Pulse Oximetry Oxygen Delivery 11/14/24 22:00 11/14/24 23:43 11/15/24 00:00 Temperature 36.7 C 36.4 C L Pulse Rate 95 74 Respiratory Rate 14 16 Blood Pressure 115/71 126/79 Pulse Oximetry 98 99 Oxygen Delivery Room Air 11/15/24 00:00 11/15/24 00:00 11/15/24 02:00 Temperature 36.9 C Pulse Rate 79 79 90 Respiratory Rate 14 Blood Pressure 105/69 Pulse Oximetry 100 Oxygen Delivery 11/15/24 02:00 11/15/24 04:00 11/15/24 04:00 Temperature Pulse Rate 90 79 Respiratory Rate Blood Pressure Pulse Oximetry Oxygen Delivery Room Air 11/15/24 04:00 11/15/24 04:00 11/15/24 06:00 Temperature 36.8 C Pulse Rate 89 77 67 Respiratory Rate 18 Blood Pressure 97/60 L Pulse Oximetry 98 Oxygen Delivery 11/15/24 06:00 11/15/24 07:34 Temperature 36.8 C 36.5 C Pulse Rate 86 76 Respiratory Rate 16 18 Blood Pressure 102/67 125/71 Pulse Oximetry 99 98 Oxygen Delivery Exam 2 Const: General: comfortable, no acute distress, alert and awake O rientation/consciousness: patient oriented x3 HENMT: Head: normal to inspection Eyes: General: appearance normal, both eyes and all related structures P upils: Equal, round and reactive pupils present Neck: Neck: normal visual inspection, supple and no JVD Carotids: normal carotid upstroke Resp: Effort & Inspection: normal respiratory effort Auscultation: clear to auscultation bilaterally Cardio: Rate: regular rate Rhythm: abnormal rhythm irregularly irregular Heart sounds: S1 normal heart sound present, S2 normal heart sound present and no murmurs GI: Auscultation: normal bowel sounds Skin: General skin exam: normal color Neuro: General: patient oriented x3 Cranial nerves: Yes Equal, round and reactive pupils present Extrem: General: normal to inspection Psych: Appearance: grossly normal Mental Status: mental status grossly normal Results Labs and Meds 11/14/24 16:16 11/15/24 03:50 Lab results: Cardiac Enzymes 11/14/24 11/14/24 11/14/24 Range/Units 16:16 18:47 21:18 AST 29 (17-59) U/L Troponin I < 0.012 < 0.012 < 0.012 (0.000-0.034) ng/mL Coagulation 11/14/24 Range/Units 16:16 PT 13.5 (11.1-14.7) Seconds APTT 27.2 (22.3-36.8) Seconds CBC 11/14/24 Range/Units 16:16 WBC 8.9 (4.5-10.0) K/mm3 RBC 5.68 (4.6-6.20) M/mm3 Hgb 17.4 (14.0-18.0) g/dL Hct 47.8 (42.0-52.0) % Plt Count 219 (150-375) k/mm3 Lymph # (Auto) 2.86 (0.9-3.2) K/mm3 [place] # (Auto) 0.8 H (0.1-0.6) K/mm3 Eos # (Auto) 0.1 (0-0.3) K/mm3 Baso # (Auto) 0.1 (0.0-0.1) K/mm3 Comprehensive Metabolic Panel 11/14/24 11/15/24 Range/Units 16:16 03:50 Sodium 139 140 (137-145) mmol/L Potassium 3.7 3.5 (3.4-5.0) mmol/L Chloride 107 109 H (98-107) mmol/L Carbon Dioxide 24 24 (22-30) mmol/L BUN 20 18 (9-20) mg/dL Creatinine 1.08 0.83 (0.7-1.3) mg/dL Glucose 195 H 104 (65-110) mg/dL Calcium 8.6 8.5 (8.4-10.2) mg/dL AST 29 (17-59) U/L ALT 39 (6-50) U/L Alkaline Phosphatase 53 (38-126) U/L Total Protein 6.9 (6.3-8.2) g/dL Albumin 4.3 (3.5-5.1) g/dL Intake and Output 11/14/24 11/15/24 11/15/24 23:59 07:59 15:59 Intake Total 1003.8 340 Balance 1003.8 340 Intake: IV 1003.8 40 Lactated Ringers 1,000 ml @ 999 1000 mls/hr IV CONT .Q1H1M STA Rx#: [id number] dilTIAZem 100 MG/100 ML 100 mg 3.8 40 In 100 ml @ 0 MG/HR IV CONT . Q0M STA Rx#:[id number] Oral 300 Other: # Unmeasured Voids 1 Patient Weight 11/15/24 23:59 Weight 132.5 kg
[2024-11-15] MEDS: dilTIAZem 100 MG/100 ML 100 MG/100 ML BAG IV CONT (10:00)
[2024-11-15] MEDS: clonazePAM (*CRX) 0.5 MG TABLET PO ×2 (11:04→17:07)
[2024-11-15] MEDS: ESCITALOPRAM OXALATE 10 MG TABLET 20 MG PO (11:04)
--- NOTE | 2024-11-15 12:23 | PM.EVENT ---
Event Note Event Note Event Note: Pt w posterior mediastinal mass. MRI would be helpful to evaluate the signal intensities of the mass, however - with his current heart rate in the 130's - 140's, imaging would be nondiagnostic. Hold on MRI until HR is under control (wait until patient is rate controlled, or out of Afib). If unable to control rate would recommend further evaluation by thoracic surgery.
--- NOTE | 2024-11-15 13:52 | PM.IMPN ---
Progress Note: A&P Assessment and Plan (1) Atrial fibrillation with rapid ventricular response: Code(s): I48.91 - Unspecified atrial fibrillation Status: Acute (2) Chest pain: Code(s): R07.9 - Chest pain, unspecified Status: Acute (3) Mediastinal mass: Code(s): J98.59 - Other diseases of mediastinum, not elsewhere classified Status: Acute (4) Type 2 diabetes mellitus: Code(s): E11.9 - Type 2 diabetes mellitus without complications Status: Acute (5) Obstructive sleep apnea: Code(s): G47.33 - Obstructive sleep apnea (adult) (pediatric) Status: Acute Plan Afib RVR Continue Cardizem infusion, Eliquis RAF/DCCV tomorrow Mediastinal mass MRI pending DM2 On SSI with accucheks MARIA TERESA continue CPAP DVT prophylaxis on Eliquis Subjective Date/time seen: 11/15/24 13:52 Interval history: Comfortable at bedside Review of Systems Review of Systems: 12 systems were reviewed and are negative except for as per HPI. Exam Narrative: General: Nontoxic-appearing male in the semi-Spear position in bed in no acute distress. Weight: 132.5 kg. BMI: 39.6. HEENT: PERRL, EOMI. Sclera anicteric. Oral mucosa moist. Oropharynx clear. Neck: Supple. No obvious thyromegaly. Respiratory: Lungs are clear to auscultation bilaterally. Cardiovascular: Irregularly irregular rate and rhythm. Monitor shows atrial fibrillation with rates in the low 100s. Gastrointestinal: Abdomen is soft, nontender, and nondistended with positive bowel sounds. Skin: Warm and dry. No rash or lesions on limited exam. Extremities: No cyanosis, clubbing, or edema. Radial and pedal pulses intact. No palpable knots or cords. Neurological: Alert. Cranial nerves 2-12 are grossly intact. No gross focal deficits to casual conversation. Psychiatric: Pleasant and cooperative with normal mood and affect. Judgment and insight intact. Objective Data Vital Signs Vital Signs: Vital Signs - 24 hr 11/14/24 15:34 11/14/24 15:49 11/14/24 16:09 Temperature 98.0 F Pulse Rate 46 L 137 H 122 H Respiratory Rate 22 H 20 16 Blood Pressure 136/85 114/71 133/74 Pulse Oximetry 100 98 99 Oxygen Delivery Room Air Room Air 11/14/24 16:19 11/14/24 16:44 11/14/24 18:16 Temperature Pulse Rate 130 H 109 H 125 H Respiratory Rate 16 14 Blood Pressure 131/74 135/70 Pulse Oximetry 99 99 Oxygen Delivery 11/14/24 18:24 11/14/24 18:49 11/14/24 19:04 Temperature Pulse Rate 120 H 85 85 Respiratory Rate 16 Blood Pressure 110/74 Pulse Oximetry 99 Oxygen Delivery 11/14/24 20:00 11/14/24 20:00 11/14/24 20:00 Temperature 98.1 F Pulse Rate 75 119 H Respiratory Rate 14 Blood Pressure 114/79 Pulse Oximetry 99 Oxygen Delivery Room Air 11/14/24 21:40 11/14/24 22:00 11/14/24 22:00 Temperature Pulse Rate 107 H 104 H 110 H Respiratory Rate Blood Pressure Pulse Oximetry Oxygen Delivery 11/14/24 22:00 11/14/24 23:43 11/15/24 00:00 Temperature 98.1 F 97.5 F L Pulse Rate 95 74 Respiratory Rate 14 16 Blood Pressure 115/71 126/79 Pulse Oximetry 98 99 Oxygen Delivery Room Air 11/15/24 00:00 11/15/24 00:00 11/15/24 02:00 Temperature 98.4 F Pulse Rate 79 79 90 Respiratory Rate 14 Blood Pressure 105/69 Pulse Oximetry 100 Oxygen Delivery 11/15/24 02:00 11/15/24 04:00 11/15/24 04:00 Temperature Pulse Rate 90 79 Respiratory Rate Blood Pressure Pulse Oximetry Oxygen Delivery Room Air 11/15/24 04:00 11/15/24 04:00 11/15/24 06:00 Temperature 98.2 F Pulse Rate 89 77 67 Respiratory Rate 18 Blood Pressure 97/60 L Pulse Oximetry 98 Oxygen Delivery 11/15/24 06:00 11/15/24 07:34 11/15/24 08:00 Temperature 98.2 F 97.7 F Pulse Rate 86 76 76 Respiratory Rate 16 18 Blood Pressure 102/67 125/71 125/71 Pulse Oximetry 99 98 Oxygen Delivery 11/15/24 08:00 11/15/24 08:33 11/15/24 10:00 Temperature Pulse Rate 85 75 Respiratory Rate Blood Pressure 121/75 Pulse Oximetry 95 Oxygen Delivery Room Air 11/15/24 10:00 11/15/24 10:00 11/15/24 12:00 Temperature 97.8 F Pulse Rate 92 91 83 Respiratory Rate 18 Blood Pressure 121/75 Pulse Oximetry 97 Oxygen Delivery 11/15/24 12:00 11/15/24 13:17 Temperature Pulse Rate 86 86 Respiratory Rate 18 Blood Pressure 113/78 113/78 Pulse Oximetry 98 Oxygen Delivery Intake/Output Intake/Output: Intake & Output 11/12/24 11/13/24 11/14/24 11/15/24 23:59 23:59 23:59 23:59 Intake Total 1003.8 1106.4 Output Total 400 Balance 1003.8 706.4 Meds/Results Medications: Active Medications Generic Name Dose Route Start Last Admin Trade Name Freq PRN Reason Stop Dose Admin Apixaban 5 mg 11/15/24 21:00 Apixaban 5 Mg Tablet PO Q12HR PAULA Buspirone HCl 20 mg 11/15/24 10:55 11/15/24 11:04 Buspirone Hcl 10 Mg Tablet PO 20 mg Q12HR PAULA Administration Clonazepam 0.5 mg 11/15/24 10:55 11/15/24 11:04 Clonazepam (*Crx) 0.5 Mg Tablet PO 0.5 mg BID PAULA Administration Dextrose 12.5 gm 11/14/24 22:43 Dextrose 50% 25 Gm/50 Ml Syringe IV PUSH PRN PRN Hypoglycemia Protocol Escitalopram Oxalate 20 mg 11/15/24 10:55 11/15/24 11:04 Escitalopram Oxalate 10 Mg Tablet PO 20 mg DAILY PAULA Administration Glucagon 1 mg 11/14/24 22:43 Glucagon For Inj 1 Mg Vial IM PRN PRN Hypoglycemia Protocol Glucose 15 gm 11/14/24 22:43 Glucose Oral Gel 15 Gm Of Glucse In 37.5 Gm Tube PO PRN PRN Hypoglycemia Protocol Diltiazem HCl 100 mg in 100 mls @ 5 mls/hr 11/14/24 21:40 11/15/24 13:17 Cardizem 100 Mg/100 Ml IV CONT 5 mg/hr .Q20H PAULA 5 mls/hr Infusion 5 MG/HR Dextrose 1,000 mls @ 100 mls/hr 11/14/24 22:43 Dextrose 5% 1,000 Ml IVPB PRN PRN Hypoglycemia Protocol Insulin Aspart 3 - 6 units 11/15/24 08:00 11/15/24 11:08 Insulin Aspart (*Bkc) 100 Units/Ml SUB-Q Not Given TIDWM [facility] Protocol Insulin Aspart 1 - 3 units 11/14/24 22:50 11/14/24 22:53 Insulin Aspart (*Bkc) 100 Units/Ml SUB-Q Not Given HS PAULA Protocol Perflutren Lipid Microsphere 0 ml 11/15/24 09:39 Perflutren Lipid Microspheres 1.5 Ml Vial Diluted To 10 Ml Total Volume IV PUSH 11/18/24 09:39 ONCE PRN adequate visualization Protocol Quetiapine Fumarate 100 mg 11/15/24 21:00 Quetiapine Fumarate Xr 50 Mg Tab.Er.24h PO QHS PAULA Venlafaxine HCl 150 mg 11/15/24 18:00 Venlafaxine Hcl Xr 75 Mg Cap.Er.24h PO QPM [facility] Radiology Results: ITS Impressions Chest X-Ray 11/14/24 15:55 IMPRESSION: Mediastinal lymphadenopathy without focal infiltrate or effusion. Chest CTA 11/14/24 17:38 IMPRESSION: No pulmonary embolus. No thoracic aortic dissection. Calcified posterior mediastinal well-circumscribed multilobulated mass for which the differential diagnosis is broad. This may represent a calcified fibrous pseudotumor of the posterior mediastinum,a nerve sheath tumor, a neural crest tumor or less likely, calcified granulomatous disease. Contrast enhanced MRI would provide additional information, if the patient is clinically able. Labs Labs: Laboratory Results - last 24 hr 11/14/24 11/14/24 11/14/24 16:15 16:16 16:16 WBC 8.9 RBC 5.68 Hgb 17.4 Hct 47.8 MCV 84.2 MCH 30.6 MCHC 36.4 H RDW 12.3 Plt Count 219 MPV 10.3 Immature Gran % (Auto) 0.2 Neut % (Auto) 56.5 Lymph % (Auto) 32.3 [place] % (Auto) 8.7 H Eos % (Auto) 1.2 Baso % (Auto) 1.1 Lymph # (Auto) 2.86 [place] # (Auto) 0.8 H Eos # (Auto) 0.1 Baso # (Auto) 0.1 Abs Immat Gran (auto) 0.02 Absolute Neuts (auto) 5.0 Absolute Nucleated RBC 0.000 Nucleated RBC % 0.0 PT 13.5 INR 1.0 APTT 27.2 D-Dimer < 0.27 Sodium 139 Potassium 3.7 Chloride 107 Carbon Dioxide 24 Anion Gap 8 BUN 20 Creatinine 1.08 Estim Creat Clear Calc 110 Estimated GFR > 60 Glucose 195 H POC Capillary Glucose Hemoglobin A1c 5.7 Calcium 8.6 Magnesium 2.0 Cancelled Total Bilirubin 2.0 H AST 29 ALT 39 Alkaline Phosphatase 53 Troponin I < 0.012 Total Protein 6.9 Albumin 4.3 Lipase 143 TSH (Reflex) 0.872 11/14/24 11/14/24 11/14/24 18:47 19:49 21:18 WBC RBC Hgb Hct MCV MCH MCHC RDW Plt Count MPV Immature Gran % (Auto) Neut % (Auto) Lymph % (Auto) [place] % (Auto) Eos % (Auto) Baso % (Auto) Lymph # (Auto) [place] # (Auto) Eos # (Auto) Baso # (Auto) Abs Immat Gran (auto) Absolute Neuts (auto) Absolute Nucleated RBC Nucleated RBC % PT INR APTT D-Dimer Sodium Potassium Chloride Carbon Dioxide Anion Gap BUN Creatinine Estim Creat Clear Calc Estimated GFR Glucose POC Capillary Glucose 102 Hemoglobin A1c Calcium Magnesium Total Bilirubin AST ALT Alkaline Phosphatase Troponin I < 0.012 < 0.012 Total Protein Albumin Lipase TSH (Reflex) 11/15/24 11/15/24 11/15/24 03:50 07:32 11:03 WBC RBC Hgb Hct MCV MCH MCHC RDW Plt Count MPV Immature Gran % (Auto) Neut % (Auto) Lymph % (Auto) [place] % (Auto) Eos % (Auto) Baso % (Auto) Lymph # (Auto) [place] # (Auto) Eos # (Auto) Baso # (Auto) Abs Immat Gran (auto) Absolute Neuts (auto) Absolute Nucleated RBC Nucleated RBC % PT INR APTT D-Dimer Sodium 140 Potassium 3.5 Chloride 109 H Carbon Dioxide 24 Anion Gap 7 BUN 18 Creatinine 0.83 Estim Creat Clear Calc 143 Estimated GFR > 60 Glucose 104 POC Capillary Glucose 120 H 139 H Hemoglobin A1c Calcium 8.5 Magnesium 1.9 Total Bilirubin AST ALT Alkaline Phosphatase Troponin I Total Protein Albumin Lipase TSH (Reflex) Quality VTE Prophylaxis VTE prophylaxis: pharmacologic ordered
--- NOTE | 2024-11-15 15:21 | PCRCNOTE ---
Therapist asked patient if he wore home CPAP. Pt states he has one but does not wear it. Hospital CPAP offered to pt , pt refused.
[2024-11-15] MEDS: VENLAFAXINE HCL XR 75 MG CAP.ER.24H 150 MG PO (17:11)
[2024-11-15] MEDS: APIXABAN 5 MG TABLET PO (20:36)
[2024-11-15] MEDS: QUEtiapine FUMARATE XR 50 MG TAB.ER.24H 100 MG PO (20:36)
[2024-11-16] VITALS (16 sets, daily range): BP systolic 98–129; BP diastolic 62–79; PULSE 70–107; RESP 16–20; TEMP 36.4–36.8; O2SAT 96–99
[2024-11-16] MEDS: dilTIAZem 100 MG/100 ML 100 MG/100 ML BAG IV CONT (01:51)
[2024-11-16 03:58] LABS: Hematocrit 44.4 % (42.0-52.0); Hemoglobin 16.3 g/dL (14.0-18.0); Immature Granulocyte Percent A 0.3 % (0-0.5); Lymphocytes Absolute Auto 3.38 K/mm3 (0.9-3.2); Mean Corpuscular HGB Conc 36.7 g/dl (32-36); Mean Corpuscular Hemoglobin 30.8 pg (26-34); Mean Corpuscular Volume 83.8 fl (80-100); Nucleated Red Blood Cells Absolute Auto 0.000 K/mm3 (0.0-0.012); Nucleated Red Blood Cells Perc 0.0 % (0.0-0.2); Platelet Count Result 186 k/mm3 (150-375); Red Blood Count 5.30 M/mm3 (4.6-6.20); White Blood Count 12.5 K/mm3 (4.5-10.0)
[2024-11-16 04:13] LABS: Alanine Aminotransferase 33 U/L (6-50); Albumin Level 3.9 g/dL (3.5-5.1); Alkaline Phosphatase 53 U/L (38-126); Anion Gap 7 mmol/L (4-12); Aspartate Amino Transferase 26 U/L (17-59); Bilirubin,Total 2.4 mg/dL (0.2-1.3); Blood Urea Nitrogen 14 mg/dL (9-20); Calcium 8.7 mg/dL (8.4-10.2); Carbon Dioxide 24 mmol/L (22-30); Chloride 105 mmol/L (98-107); Estimated CRCL calculation 143 ml/min; Estimated Glomerular Filt Rate > 60; Glucose 98 mg/dL (65-110); Magnesium 2.0 mg/dL (1.6-2.3); Potassium 3.5 mmol/L (3.4-5.0); Sodium 136 mmol/L (137-145); Total Protein 6.2 g/dL (6.3-8.2)
[2024-11-16] MEDS: APIXABAN 5 MG TABLET PO ×2 (08:14→19:11)
[2024-11-16] MEDS: clonazePAM (*CRX) 0.5 MG TABLET PO ×2 (08:14→17:04)
[2024-11-16] MEDS: ESCITALOPRAM OXALATE 10 MG TABLET 20 MG PO (08:15)
--- NOTE | 2024-11-16 12:54 | WPDMODSED ---
Moderate Sedation Note-Pt Data Patient Data Diagnosis: Atrial fibrillation Present Complaint: Atrial fibrillation Procedure to be performed/Plan: Multiplanar transesophageal echocardiography with color-flow and pulse-wave Doppler Electrical cardioversion Allergies Allergy/AdvReac Type Severity Reaction Status Date / Time No Known Allergies Allergy Unverified 05/23/24 08:00 Home Medications ?Medication ?Instructions ?Recorded ?Confirmed ?Type Clonazepam 0.5 mg BYMOUTH BID 12/16/22 11/14/24 History quetiapine 150 mg tablet,extended 100 mg PO QHS 12/16/22 11/14/24 History release 24 hr blood-glucose,tin roller hot mill,cont #1 ea 01/12/24 11/14/24 Rx (Dexcom G7 Financial Reserve Clerk) syringe with needle, safety 3 mL #10 syringes 03/10/24 11/14/24 Rx 21 gauge x 1 1/2 (Monoject Safety Syringes) blood-glucose sensor (Dexcom G7 #1 ea 05/27/24 11/14/24 Rx Sensor device) buspirone 10 mg tablet 20 mg PO BID 11/14/24 11/14/24 History clonidine HCl 0.1 mg tablet 0.05 mg PO QID 11/14/24 11/14/24 History escitalopram oxalate 20 mg tablet 20 mg PO DAILY 11/14/24 11/14/24 History semaglutide 2 mg/dose (8 mg/3 mL) 2 mg subcut WEEKLY 11/14/24 11/14/24 History subcutaneous pen injector (Ozempic) venlafaxine 150 mg 150 mg PO QPM 11/14/24 11/14/24 History capsule,extended release 24 hr Current Medications: Active Medications Apixaban (Apixaban 5 Mg Tablet) 5 mg PO Q12HR [facility] Last Admin: 11/16/24 08:14 Dose: 5 mg Buspirone HCl (Buspirone Hcl 10 Mg Tablet) 20 mg PO Q12HR [facility] Last Admin: 11/16/24 08:15 Dose: 20 mg Clonazepam (Clonazepam (*Crx) 0.5 Mg Tablet) 0.5 mg PO BID [facility] Last Admin: 11/16/24 08:14 Dose: 0.5 mg Dextrose (Dextrose 50% 25 Gm/50 Ml Syringe) 12.5 gm IV PUSH PRN PRN; Protocol PRN Reason: Hypoglycemia Escitalopram Oxalate (Escitalopram Oxalate 10 Mg Tablet) 20 mg PO DAILY [facility] Last Admin: 11/16/24 08:15 Dose: 20 mg Glucagon (Glucagon For Inj 1 Mg Vial) 1 mg IM PRN PRN; Protocol PRN Reason: Hypoglycemia Glucose (Glucose Oral Gel 15 Gm Of Glucse In 37.5 Gm Tube) 15 gm PO PRN PRN; Protocol PRN Reason: Hypoglycemia Diltiazem HCl (Cardizem 100 Mg/100 Ml) 100 mg in 100 mls @ 5 mls/hr IV CONT .Q20H PAULA Last Infusion: 11/16/24 12:00 Dose: 5 mg/hr, 5 mls/hr Dextrose (Dextrose 5% 1,000 Ml) 1,000 mls @ 100 mls/hr IVPB PRN PRN; Protocol PRN Reason: Hypoglycemia Insulin Aspart (Insulin Aspart (*Bkc) 100 Units/Ml) 3 - 6 units SUB-Q TIDWM PAULA; Protocol Last Admin: 11/16/24 12:32 Dose: Not Given Insulin Aspart (Insulin Aspart (*Bkc) 100 Units/Ml) 1 - 3 units SUB-Q HS PAULA; Protocol Last Admin: 11/15/24 21:38 Dose: Not Given Perflutren Lipid Microsphere (Perflutren Lipid Microspheres 1.5 Ml Vial Diluted To 10 Ml Total Volume) 0 ml IV PUSH ONCE PRN; Protocol PRN Reason: adequate visualization Stop: 11/18/24 09:39 Quetiapine Fumarate (Quetiapine Fumarate Xr 50 Mg Tab.Er.24h) 100 mg PO QHS [facility] Last Admin: 11/15/24 20:36 Dose: 100 mg Venlafaxine HCl (Venlafaxine Hcl Xr 75 Mg Cap.Er.24h) 150 mg PO QPM [facility]UL[facility] Last Admin: 11/15/24 17:11 Dose: 150 mg Sedation/Anesthesia: No previous sedation/anesthesia problems (including family history). [facility] Past Medical History Medical History Fatty infiltration of liver Depression with anxiety Type 2 diabetes mellitus Obstructive sleep apnea Anxiety Surgical History Surgical History History of testicular surgery Family History Family History Father Diabetes mellitus Social History Social History Social History: Surrogate medical decision maker: Trini Kelley, spouse. Code status: Full code. Smoking status: Never smoker Alcohol intake: current Drinks per week: 1 Alcohol use details: social alcohol use in moderation, perhaps a couple of beers a week Substance use: never Substance use type: does not use Do You Feel Safe in your Home?: Yes Lack of Transportation: No Lack of Food: Never True Current Housing: I Have Housing Concerned About Future Housing: No Difficulty Paying Gas/Electric Bills: No Difficulty Paying for Meds: No Currently Unemployed: No Education: Associate Degree Difficulty w/ Childcare or Family Care: No Living arrangements: with family Additional living arrangements comments: Lives with spouse in their 2 children in [place]. 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. Spiritual care concerns: No Mod Sed Physical Exam Physical Exam Pre Procedural Exam: Normal: Appearance, Eyes, Ears, Nose, Neck, Throat, Airway, Lungs, Heart Size, Heart Rate, Abdomen and Skin and Variation: Heart Rhythm (Irregular irregular) Hours since solid foods: 12 Hours since liquid intake: 12 Mallampati Classification: class II Internal Medicine - PN: Obj Da Vital Signs Vital Signs: Vital Signs - 24 hr 11/15/24 14:00 11/15/24 14:00 11/15/24 14:00 Temperature Pulse Rate 70 78 78 Respiratory Rate 18 Blood Pressure 123/78 123/78 Pulse Oximetry 99 Oxygen Delivery Fraction of Inspired Oxygen 11/15/24 15:58 11/15/24 16:00 11/15/24 16:00 Temperature 36.4 C L Pulse Rate 74 76 75 Respiratory Rate 18 Blood Pressure 119/73 119/73 Pulse Oximetry 97 Oxygen Delivery Fraction of Inspired Oxygen 11/15/24 18:00 11/15/24 18:00 11/15/24 18:00 Temperature Pulse Rate 81 85 85 Respiratory Rate 181 H Blood Pressure 130/67 130/67 Pulse Oximetry 98 Oxygen Delivery Fraction of Inspired Oxygen 11/15/24 20:00 11/15/24 20:00 11/15/24 20:00 Temperature 36.9 C Pulse Rate 75 80 75 Respiratory Rate 20 Blood Pressure 123/73 123/73 Pulse Oximetry 100 Oxygen Delivery Fraction of Inspired Oxygen 11/15/24 20:29 11/15/24 21:56 11/15/24 22:00 Temperature Pulse Rate 90 82 82 Respiratory Rate 20 Blood Pressure 134/78 134/78 Pulse Oximetry 98 99 Oxygen Delivery Room Air Fraction of Inspired Oxygen 21 11/15/24 22:05 11/15/24 23:59 11/16/24 00:00 Temperature 36.7 C Pulse Rate 89 75 Respiratory Rate 16 Blood Pressure 129/79 Pulse Oximetry 97 Oxygen Delivery Room Air Fraction of Inspired Oxygen 11/16/24 00:00 11/16/24 00:00 11/16/24 01:51 Temperature Pulse Rate 75 77 83 Respiratory Rate Blood Pressure 129/79 98/64 L Pulse Oximetry Oxygen Delivery Fraction of Inspired Oxygen 11/16/24 01:51 11/16/24 02:35 11/16/24 04:00 Temperature Pulse Rate 83 73 Respiratory Rate Blood Pressure 98/64 L Pulse Oximetry Oxygen Delivery Room Air Fraction of Inspired Oxygen 11/16/24 04:00 11/16/24 04:00 11/16/24 04:00 Temperature 36.4 C L Pulse Rate 70 78 76 Respiratory Rate 20 Blood Pressure 110/67 110/67 Pulse Oximetry 99 Oxygen Delivery Fraction of Inspired Oxygen 11/16/24 05:58 11/16/24 06:20 11/16/24 07:17 Temperature 36.6 C Pulse Rate 76 80 80 Respiratory Rate 16 Blood Pressure 107/66 114/73 Pulse Oximetry 98 Oxygen Delivery Fraction of Inspired Oxygen 11/16/24 08:00 11/16/24 08:00 11/16/24 10:00 Temperature Pulse Rate 91 80 92 Respiratory Rate Blood Pressure 114/73 Pulse Oximetry Oxygen Delivery Fraction of Inspired Oxygen 11/16/24 10:00 11/16/24 10:00 11/16/24 12:00 Temperature Pulse Rate 81 88 Respiratory Rate Blood Pressure 115/77 115/77 Pulse Oximetry Oxygen Delivery Fraction of Inspired Oxygen 11/16/24 12:00 11/16/24 12:00 Temperature 36.8 C Pulse Rate 90 81 Respiratory Rate 18 Blood Pressure 107/68 107/68 Pulse Oximetry 99 Oxygen Delivery Fraction of Inspired Oxygen Intake/Output Intake/Output: Intake & Output 11/13/24 11/14/24 11/15/24 11/16/24 23:59 23:59 23:59 23:59 Intake Total 1003.8 1390 570.1 Output Total 400 Balance 1003.8 990 570.1 Meds/Results Medications: Active Medications Generic Name Dose Route Start Last Admin Trade Name Dillan PRN Reason Stop Dose Admin Apixaban 5 mg 11/15/24 21:00 11/16/24 08:14 Apixaban 5 Mg Tablet PO 5 mg Q12HR PALUA Administration Buspirone HCl 20 mg 11/15/24 10:55 11/16/24 08:15 Buspirone Hcl 10 Mg Tablet PO 20 mg Q12HR PAULA Administration Clonazepam 0.5 mg 11/15/24 10:55 11/16/24 08:14 Clonazepam (*Crx) 0.5 Mg Tablet PO 0.5 mg BID PAULA Administration Dextrose 12.5 gm 11/14/24 22:43 Dextrose 50% 25 Gm/50 Ml Syringe IV PUSH PRN PRN Hypoglycemia Protocol Escitalopram Oxalate 20 mg 11/15/24 10:55 11/16/24 08:15 Escitalopram Oxalate 10 Mg Tablet PO 20 mg DAILY PAULA Administration Glucagon 1 mg 11/14/24 22:43 Glucagon For Inj 1 Mg Vial IM PRN PRN Hypoglycemia Protocol Glucose 15 gm 11/14/24 22:43 Glucose Oral Gel 15 Gm Of Glucse In 37.5 Gm Tube PO PRN PRN Hypoglycemia Protocol Diltiazem HCl 100 mg in 100 mls @ 5 mls/hr 11/14/24 21:40 11/16/24 12:00 Cardizem 100 Mg/100 Ml IV CONT 5 mg/hr .Q20H PAULA 5 mls/hr Infusion 5 MG/HR Dextrose 1,000 mls @ 100 mls/hr 11/14/24 22:43 Dextrose 5% 1,000 Ml IVPB PRN PRN Hypoglycemia Protocol Insulin Aspart 3 - 6 units 11/15/24 08:00 11/16/24 12:32 Insulin Aspart (*Bkc) 100 Units/Ml SUB-Q Not Given TIDWM [facility] Protocol Insulin Aspart 1 - 3 units 11/14/24 22:50 11/15/24 21:38 Insulin Aspart (*Bkc) 100 Units/Ml SUB-Q Not Given HS PAULA Protocol Perflutren Lipid Microsphere 0 ml 11/15/24 09:39 Perflutren Lipid Microspheres 1.5 Ml Vial Diluted To 10 Ml Total Volume IV PUSH 07/25/25 09:39 ONCE PRN adequate visualization Protocol Quetiapine Fumarate 100 mg 11/15/24 21:00 11/15/24 20:36 Quetiapine Fumarate Xr 50 Mg Tab.Er.24h PO 100 mg QHS PAULA Administration Venlafaxine HCl 150 mg 11/15/24 18:00 11/15/24 17:11 Venlafaxine Hcl Xr 75 Mg Cap.Er.24h PO 150 mg QPM PAULA Administration Radiology Results: ITS Impressions Chest X-Ray 11/14/24 15:55 IMPRESSION: Mediastinal lymphadenopathy without focal infiltrate or effusion. Chest CTA 11/14/24 17:38 IMPRESSION: No pulmonary embolus. No thoracic aortic dissection. Calcified posterior mediastinal well-circumscribed multilobulated mass for which the differential diagnosis is broad. This may represent a calcified fibrous pseudotumor of the posterior mediastinum,a nerve sheath tumor, a neural crest tumor or less likely, calcified granulomatous disease. Contrast enhanced MRI would provide additional information, if the patient is clinically able. Labs 11/16/24 03:29 11/16/24 03:29 Labs: Laboratory Results - last 24 hr 11/15/24 11/15/24 11/16/24 15:59 20:19 03:29 WBC 12.5 H RBC 5.30 Hgb 16.3 Hct 44.4 MCV 83.8 MCH 30.8 MCHC 36.7 H RDW 12.3 Plt Count 186 MPV 10.3 Immature Gran % (Auto) 0.3 Neut % (Auto) 64.3 Lymph % (Auto) 27.0 [place] % (Auto) 6.6 Eos % (Auto) 1.1 Baso % (Auto) 0.7 Lymph # (Auto) 3.38 H [place] # (Auto) 0.8 H Eos # (Auto) 0.1 Baso # (Auto) 0.1 Abs Immat Gran (auto) 0.04 H Absolute Neuts (auto) 8.0 H Absolute Nucleated RBC 0.000 Nucleated RBC % 0.0 Sodium 136 L Potassium 3.5 Chloride 105 Carbon Dioxide 24 Anion Gap 7 BUN 14 Creatinine 0.83 Estim Creat Clear Calc 143 Estimated GFR > 60 Glucose 98 POC Capillary Glucose 159 H 106 H Calcium 8.7 Magnesium 2.0 Total Bilirubin 2.4 H AST 26 ALT 33 Alkaline Phosphatase 53 Total Protein 6.2 L Albumin 3.9 11/16/24 11/16/24 07:18 12:06 WBC RBC Hgb Hct MCV MCH MCHC RDW Plt Count MPV Immature Gran % (Auto) Neut % (Auto) Lymph % (Auto) [place] % (Auto) Eos % (Auto) Baso % (Auto) Lymph # (Auto) [place] # (Auto) Eos # (Auto) Baso # (Auto) Abs Immat Gran (auto) Absolute Neuts (auto) Absolute Nucleated RBC Nucleated RBC % Sodium Potassium Chloride Carbon Dioxide Anion Gap BUN Creatinine Estim Creat Clear Calc Estimated GFR Glucose POC Capillary Glucose 119 H 118 H Calcium Magnesium Total Bilirubin AST ALT Alkaline Phosphatase Total Protein Albumin ASA Classification/Sedation ASA Classification/Sedation ASA Class: II Emergent: No Risks: Risks, benefits and alternatives explained and patient/family accepted plan for sedation. Patient re-evaluated immediately prior to sedation.
--- NOTE | 2024-11-16 12:59 | P.PNAN_ITS ---
Anes - Initial Pre Proc Eval Procedure: Operation Date: 11/16/24 13:00 Proposed Procedures p Trans Esophageal Echo [facility] - Armando Menjivar MD s Electrical Cardioversion - Armando Menjivar MD Date/Time: 11/16/24 12:59 Surgeon: Tyler Baird MD Pre Op Diagnosis: afib with rvr Patient Data Age: 44 Gender: M Height: 1.83 m Weight: 128.9 kg Last Vital Signs Temp 36.8 C 11/16/24 12:00 Pulse 81 11/16/24 12:00 Resp 18 11/16/24 12:00 BP 107/68 11/16/24 12:00 Pulse Ox 99 11/16/24 12:00 O2 Del Method Room Air 11/16/24 04:00 FiO2 21 11/15/24 20:29 Allergies Allergy/AdvReac Type Severity Reaction Status Date / Time No Known Allergies Allergy Unverified 05/23/24 08:00 Home Medications ?Medication ?Instructions ?Recorded ?Confirmed ?Type Clonazepam 0.5 mg BYMOUTH BID 12/16/22 11/14/24 History quetiapine 150 mg tablet,extended 100 mg PO QHS 12/16/22 11/14/24 History release 24 hr blood-glucose,participant administrator,cont #1 ea 01/12/24 11/14/24 Rx (Dexcom G7 Digital Business Analyst) syringe with needle, safety 3 mL #10 syringes 03/10/24 11/14/24 Rx 21 gauge x 1 1/2 (Monoject Safety Syringes) blood-glucose sensor (Dexcom G7 #1 ea 05/27/24 11/14/24 Rx Sensor device) buspirone 10 mg tablet 20 mg PO BID 11/14/24 11/14/24 History clonidine HCl 0.1 mg tablet 0.05 mg PO QID 11/14/24 11/14/24 History escitalopram oxalate 20 mg tablet 20 mg PO DAILY 11/14/24 11/14/24 History semaglutide 2 mg/dose (8 mg/3 mL) 2 mg subcut WEEKLY 11/14/24 11/14/24 History subcutaneous pen injector (Ozempic) venlafaxine 150 mg 150 mg PO QPM 11/14/24 11/14/24 History capsule,extended release 24 hr Laboratory Tests 11/15/24 11/15/24 11/16/24 15:59 20:19 03:29 WBC 12.5 H K/mm3 (4.5-10.0) RBC 5.30 M/mm3 (4.6-6.20) Hgb 16.3 g/dL (14.0-18.0) Hct 44.4 % (42.0-52.0) MCV 83.8 fl (80-100) MCH 30.8 pg (26-34) MCHC 36.7 H g/dl (32-36) RDW 12.3 % (11.5-14.5) Plt Count 186 k/mm3 (150-375) MPV 10.3 fl (7.4-10.4) Immature Gran % (Auto) 0.3 % (0-0.5) Neut % (Auto) 64.3 % (45.5-73.1) Lymph % (Auto) 27.0 % (18.3-44.2) [place] % (Auto) 6.6 % (2.6-8.5) Eos % (Auto) 1.1 % (0-4.4) Baso % (Auto) 0.7 % (0.2-1.2) Lymph # (Auto) 3.38 H K/mm3 (0.9-3.2) [place] # (Auto) 0.8 H K/mm3 (0.1-0.6) Eos # (Auto) 0.1 K/mm3 (0-0.3) Baso # (Auto) 0.1 K/mm3 (0.0-0.1) Abs Immat Gran (auto) 0.04 H K/mm3 (0.00-0.031) Absolute Neuts (auto) 8.0 H K/mm3 (1.3-6.7) Absolute Nucleated RBC 0.000 K/mm3 (0.0-0.012) Nucleated RBC % 0.0 % (0.0-0.2) Sodium 136 L mmol/L (137-145) Potassium 3.5 mmol/L (3.4-5.0) Chloride 105 mmol/L (98-107) Carbon Dioxide 24 mmol/L (22-30) Anion Gap 7 mmol/L (4-12) BUN 14 mg/dL (9-20) Creatinine 0.83 mg/dL (0.7-1.3) Estim Creat Clear Calc 143 ml/min Estimated GFR > 60 (59 - ) Glucose 98 mg/dL (65-110) POC Capillary Glucose 159 H mg/dl 106 H mg/dl (65-105) (65-105) Calcium 8.7 mg/dL (8.4-10.2) Magnesium 2.0 mg/dL (1.6-2.3) Total Bilirubin 2.4 H mg/dL (0.2-1.3) AST 26 U/L (17-59) ALT 33 U/L (6-50) Alkaline Phosphatase 53 U/L (38-126) Total Protein 6.2 L g/dL (6.3-8.2) Albumin 3.9 g/dL (3.5-5.1) 11/16/24 11/16/24 07:18 12:06 WBC RBC Hgb Hct MCV MCH MCHC RDW Plt Count MPV Immature Gran % (Auto) Neut % (Auto) Lymph % (Auto) [place] % (Auto) Eos % (Auto) Baso % (Auto) Lymph # (Auto) [place] # (Auto) Eos # (Auto) Baso # (Auto) Abs Immat Gran (auto) Absolute Neuts (auto) Absolute Nucleated RBC Nucleated RBC % Sodium Potassium Chloride Carbon Dioxide Anion Gap BUN Creatinine Estim Creat Clear Calc Estimated GFR Glucose POC Capillary Glucose 119 H mg/dl 118 H mg/dl (65-105) (65-105) Calcium Magnesium Total Bilirubin AST ALT Alkaline Phosphatase Total Protein Albumin Patient hx anesthesia problems: none Family hx anesthesia problems: none Results Review: All pre-operative results and documents have been reviewed as part of the pre- operative evaluation. [facility] Past Medical History Medical History Fatty infiltration of liver Depression with anxiety Type 2 diabetes mellitus Obstructive sleep apnea Anxiety Surgical History Surgical History History of testicular surgery Family History Family History Father Diabetes mellitus Social History Social History Social History: Surrogate medical decision maker: Trini Kelley, spouse. Code status: Full code. Smoking status: Never smoker Alcohol intake: current Drinks per week: 1 Alcohol use details: social alcohol use in moderation, perhaps a couple of beers a week Substance use: never Substance use type: does not use Do You Feel Safe in your Home?: Yes Lack of Transportation: No Lack of Food: Never True Current Housing: I Have Housing Concerned About Future Housing: No Difficulty Paying Gas/Electric Bills: No Difficulty Paying for Meds: No Currently Unemployed: No Education: Associate Degree Difficulty w/ Childcare or Family Care: No Living arrangements: with family Additional living arrangements comments: Lives with spouse in their 2 children in [place]. 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 Informed Consent: The patient's anesthetic plan and its attendant risks and benefits were discussed with the patient/family/POA. Questions were solicited and answers provided to the satisfaction of the patient/family/POA.
--- NOTE | 2024-11-16 13:00 | ECG_ITS ---
Test Date: 2024-11-16 12:50:48 Measurements Intervals [place] Rate: 86 P: 0 [place]: 0 QRS: 28 QRSD: 102 T: 30 QT: 383 QTc: 460 Interpretive Statements ATRIAL FIBRILLATION ABNORMAL ECG Compared to ECG 11/14/2024 18:32:06 No significant changes Electronically Signed On 11-16-2024 14:10:35 CDT by Armando Menjivar M.D.
--- NOTE | 2024-11-16 13:12 | P.PCNTEECA_ITS ---
[facility] with Cardioversion Date of procedure: 11/16/24 Procedure Type: 1. Multiplanar transesophageal echocardiography with color flow and pulse wave Doppler 2. Agitated saline study 3. Electrical cardioversion Diagnosis: Atrial fibrillation Indications: Atrial fibrillation Description of Procedure: Have discussing risks, benefits alternatives of the procedure patient agreeable via verbal and written informed consent. Risks discussed include esophageal rupture perforation, adverse reaction anesthesia, shocking into more problematic heart rhythm, , skin irritation or burn, sore throat. After time-out was taken and after establishing continuous hospital laboratory technician, pulse oxygenation serial blood pressure assessments procedure was initiated Anesthesia was provided via the anesthesia department using propofol. See separate report for details. Complications: None Blood loss: None Sedation: Propofol per Anesthesia Findings: Normal left ventricular size and function with ejection fraction of 60%. Normal right ventricular size and function. Normal mitral valve with mild mitral regurgitation. Aortic valve is trileaflet with trivial aortic insufficiency. Pulmonic valve is grossly normal without significant pulmonic insufficiency. Tricuspid valve is also normal with mild tricuspid regurgitation. Aortic root upper limits of normal 3.7 cm. Normal right atrial size. Mild to moderate left atrial enlargement. Left atrial appendage is free of mass or thrombus with pulse-wave velocities of up to 100 centimeters/second. The atrial septum is thin, hypermobile without color flow evidence of shunting. Agitated saline study performed without shunting. No pericardial effusion. Atrial fibrillation was again confirmed and utilizing 150 joules x1 of biphasic synchronized energy, normal sinus rhythm/sinus tachycardia was restored Conclusion: 1. Normal left ventricular size and function 2. Left atrial enlargement 3. Mild mitral and tricuspid regurgitation 4. Normal left atrial appendage without thrombus 5. Negative agitated saline study 6. Successful electrical cardioversion using 150 joules of biphasic synchronized energy
--- NOTE | 2024-11-16 13:30 | ECG_ITS ---
Test Date: 2024-11-16 13:09:38 Measurements Intervals [place] Rate: 93 P: 34 [place]: 175 QRS: 26 QRSD: 96 T: 30 QT: 374 QTc: 465 Interpretive Statements SINUS RHYTHM POSSIBLE LEFT ATRIAL ENLARGEMENT [-0.1mV P-WAVE IN V1/V2] ABNORMAL ECG Compared to ECG 11/16/2024 12:50:48 Atrial fibrillation no longer present Electronically Signed On 11-16-2024 14:10:43 CDT by Armando Menjivar M.D.
[2024-11-16] MEDS: POTASSIUM CHLORIDE 20 MEQ ER TABLET 40 MEQ PO (14:38)
--- NOTE | 2024-11-16 14:53 | PM.IMPN ---
Progress Note: A&P Assessment and Plan (1) Atrial fibrillation with rapid ventricular response: Code(s): I48.91 - Unspecified atrial fibrillation Status: Acute (2) Chest pain: Code(s): R07.9 - Chest pain, unspecified Status: Acute (3) Mediastinal mass: Code(s): J98.59 - Other diseases of mediastinum, not elsewhere classified Status: Acute (4) Type 2 diabetes mellitus: Code(s): E11.9 - Type 2 diabetes mellitus without complications Status: Acute (5) Obstructive sleep apnea: Code(s): G47.33 - Obstructive sleep apnea (adult) (pediatric) Status: Acute Plan Afib RVR nwo in NSR Continue Cardizem infusion, Eliquis x 30 days S/p RAF/DCCV Now in NSR Mediastinal mass Radiology noted that we do not have the capacity for the specific MRI exam Awaiting call back from [facility] transfer center for inpatient transfer vs outpatient follow up DM2 On SSI with accucheks MARIA TERESA continue CPAP DVT prophylaxis on Eliquis Subjective Date/time seen: 11/16/24 14:53 Interval history: Comfortable at bedside Review of Systems Review of Systems: 12 systems were reviewed and are negative except for as per HPI. Exam Narrative: General: Nontoxic-appearing male in the semi-Spear position in bed in no acute distress. Weight: 132.5 kg. BMI: 39.6. HEENT: PERRL, EOMI. Sclera anicteric. Oral mucosa moist. Oropharynx clear. Neck: Supple. No obvious thyromegaly. Respiratory: Lungs are clear to auscultation bilaterally. Cardiovascular: Irregularly irregular rate and rhythm. Monitor shows atrial fibrillation with rates in the low 100s. Gastrointestinal: Abdomen is soft, nontender, and nondistended with positive bowel sounds. Skin: Warm and dry. No rash or lesions on limited exam. Extremities: No cyanosis, clubbing, or edema. Radial and pedal pulses intact. No palpable knots or cords. Neurological: Alert. Cranial nerves 2-12 are grossly intact. No gross focal deficits to casual conversation. Psychiatric: Pleasant and cooperative with normal mood and affect. Judgment and insight intact. Objective Data Vital Signs Vital Signs: Vital Signs - 24 hr 11/15/24 15:58 11/15/24 16:00 11/15/24 16:00 Temperature 97.5 F L Pulse Rate 74 76 75 Respiratory Rate 18 Blood Pressure 119/73 119/73 Pulse Oximetry 97 Oxygen Delivery Fraction of Inspired Oxygen 11/15/24 18:00 11/15/24 18:00 11/15/24 18:00 Temperature Pulse Rate 81 85 85 Respiratory Rate 181 H Blood Pressure 130/67 130/67 Pulse Oximetry 98 Oxygen Delivery Fraction of Inspired Oxygen 11/15/24 20:00 11/15/24 20:00 11/15/24 20:00 Temperature 98.4 F Pulse Rate 75 80 75 Respiratory Rate 20 Blood Pressure 123/73 123/73 Pulse Oximetry 100 Oxygen Delivery Fraction of Inspired Oxygen 11/15/24 20:29 11/15/24 21:56 11/15/24 22:00 Temperature Pulse Rate 90 82 82 Respiratory Rate 20 Blood Pressure 134/78 134/78 Pulse Oximetry 98 99 Oxygen Delivery Room Air Fraction of Inspired Oxygen 21 11/15/24 22:05 11/15/24 23:59 11/16/24 00:00 Temperature 98.0 F Pulse Rate 89 75 Respiratory Rate 16 Blood Pressure 129/79 Pulse Oximetry 97 Oxygen Delivery Room Air Fraction of Inspired Oxygen 11/16/24 00:00 11/16/24 00:00 11/16/24 01:51 Temperature Pulse Rate 75 77 83 Respiratory Rate Blood Pressure 129/79 98/64 L Pulse Oximetry Oxygen Delivery Fraction of Inspired Oxygen 11/16/24 01:51 11/16/24 02:35 11/16/24 04:00 Temperature Pulse Rate 83 73 Respiratory Rate Blood Pressure 98/64 L Pulse Oximetry Oxygen Delivery Room Air Fraction of Inspired Oxygen 11/16/24 04:00 11/16/24 04:00 11/16/24 04:00 Temperature 97.5 F L Pulse Rate 70 78 76 Respiratory Rate 20 Blood Pressure 110/67 110/67 Pulse Oximetry 99 Oxygen Delivery Fraction of Inspired Oxygen 11/16/24 05:58 11/16/24 06:20 11/16/24 07:17 Temperature 97.8 F Pulse Rate 76 80 80 Respiratory Rate 16 Blood Pressure 107/66 114/73 Pulse Oximetry 98 Oxygen Delivery Fraction of Inspired Oxygen 11/16/24 08:00 11/16/24 08:00 11/16/24 10:00 Temperature Pulse Rate 91 80 92 Respiratory Rate Blood Pressure 114/73 Pulse Oximetry Oxygen Delivery Fraction of Inspired Oxygen 11/16/24 10:00 11/16/24 10:00 11/16/24 12:00 Temperature Pulse Rate 81 88 Respiratory Rate Blood Pressure 115/77 115/77 Pulse Oximetry Oxygen Delivery Fraction of Inspired Oxygen 11/16/24 12:00 11/16/24 12:00 11/16/24 13:12 Temperature 98.3 F Pulse Rate 90 81 107 H Respiratory Rate 18 16 Blood Pressure 107/68 107/68 101/76 Pulse Oximetry 99 99 Oxygen Delivery Room Air Fraction of Inspired Oxygen 11/16/24 13:27 11/16/24 13:41 Temperature Pulse Rate 90 81 Respiratory Rate 16 18 Blood Pressure 115/73 111/68 Pulse Oximetry 97 96 Oxygen Delivery Room Air Room Air Fraction of Inspired Oxygen Intake/Output Intake/Output: Intake & Output 11/13/24 11/14/24 11/15/24 11/16/24 23:59 23:59 23:59 23:59 Intake Total 1003.8 1390 570.1 Output Total 400 Balance 1003.8 990 570.1 Meds/Results Medications: Active Medications Generic Name Dose Route Start Last Admin Trade Name Freq PRN Reason Stop Dose Admin Apixaban 5 mg 11/15/24 21:00 11/16/24 08:14 Apixaban 5 Mg Tablet PO 5 mg Q12HR PAULA Administration Buspirone HCl 20 mg 11/15/24 10:55 11/16/24 08:15 Buspirone Hcl 10 Mg Tablet PO 20 mg Q12HR PAULA Administration Clonazepam 0.5 mg 11/15/24 10:55 11/16/24 08:14 Clonazepam (*Crx) 0.5 Mg Tablet PO 0.5 mg BID PAULA Administration Dextrose 12.5 gm 11/14/24 22:43 Dextrose 50% 25 Gm/50 Ml Syringe IV PUSH PRN PRN Hypoglycemia Protocol Escitalopram Oxalate 20 mg 11/15/24 10:55 11/16/24 08:15 Escitalopram Oxalate 10 Mg Tablet PO 20 mg DAILY PAULA Administration Fentanyl Citrate 25 mcg 11/16/24 13:01 Fentanyl Citrate Inj (*Crx) 100 Mcg/2 Ml Vial IV PUSH Q2M PRN Pain Glucagon 1 mg 11/14/24 22:43 Glucagon For Inj 1 Mg Vial IM PRN PRN Hypoglycemia Protocol Glucose 15 gm 11/14/24 22:43 Glucose Oral Gel 15 Gm Of Glucse In 37.5 Gm Tube PO PRN PRN Hypoglycemia Protocol Dextrose 1,000 mls @ 100 mls/hr 11/14/24 22:43 Dextrose 5% 1,000 Ml IVPB PRN PRN Hypoglycemia Protocol Sodium Chloride 500 mls @ 30 mls/hr 11/16/24 13:05 Normal Saline Iv IV CONT .[id number] [facility] Insulin Aspart 3 - 6 units 11/15/24 08:00 11/16/24 12:32 Insulin Aspart (*Bkc) 100 Units/Ml SUB-Q Not Given TIDWM PAULA Protocol Insulin Aspart 1 - 3 units 11/14/24 22:50 11/15/24 21:38 Insulin Aspart (*Bkc) 100 Units/Ml SUB-Q Not Given HS [facility] Protocol Ondansetron HCl 4 mg 11/16/24 13:01 Ondansetron Inj 4 Mg/2 Ml Vial IV PUSH ONCE PRN Nausea Perflutren Lipid Microsphere 0 ml 11/15/24 09:39 Perflutren Lipid Microspheres 1.5 Ml Vial Diluted To 10 Ml Total Volume IV PUSH 11/18/24 09:39 ONCE PRN adequate visualization Protocol Quetiapine Fumarate 100 mg 11/15/24 21:00 11/15/24 20:36 Quetiapine Fumarate Xr 50 Mg Tab.Er.24h PO 100 mg QHS PAULA Administration Venlafaxine HCl 150 mg 11/15/24 18:00 11/15/24 17:11 Venlafaxine Hcl Xr 75 Mg Cap.Er.24h PO 150 mg QPM PAULA Administration Radiology Results: ITS Impressions Chest X-Ray 11/14/24 15:55 IMPRESSION: Mediastinal lymphadenopathy without focal infiltrate or effusion. Chest CTA 11/14/24 17:38 IMPRESSION: No pulmonary embolus. No thoracic aortic dissection. Calcified posterior mediastinal well-circumscribed multilobulated mass for which the differential diagnosis is broad. This may represent a calcified fibrous pseudotumor of the posterior mediastinum,a nerve sheath tumor, a neural crest tumor or less likely, calcified granulomatous disease. Contrast enhanced MRI would provide additional information, if the patient is clinically able. Labs Labs: Laboratory Results - last 24 hr 11/15/24 11/15/24 11/16/24 15:59 20:19 03:29 WBC 12.5 H RBC 5.30 Hgb 16.3 Hct 44.4 MCV 83.8 MCH 30.8 MCHC 36.7 H RDW 12.3 Plt Count 186 MPV 10.3 Immature Gran % (Auto) 0.3 Neut % (Auto) 64.3 Lymph % (Auto) 27.0 [place] % (Auto) 6.6 Eos % (Auto) 1.1 Baso % (Auto) 0.7 Lymph # (Auto) 3.38 H [place] # (Auto) 0.8 H Eos # (Auto) 0.1 Baso # (Auto) 0.1 Abs Immat Gran (auto) 0.04 H Absolute Neuts (auto) 8.0 H Absolute Nucleated RBC 0.000 Nucleated RBC % 0.0 Sodium 136 L Potassium 3.5 Chloride 105 Carbon Dioxide 24 Anion Gap 7 BUN 14 Creatinine 0.83 Estim Creat Clear Calc 143 Estimated GFR > 60 Glucose 98 POC Capillary Glucose 159 H 106 H Calcium 8.7 Magnesium 2.0 Total Bilirubin 2.4 H AST 26 ALT 33 Alkaline Phosphatase 53 Total Protein 6.2 L Albumin 3.9 11/16/24 11/16/24 07:18 12:06 WBC RBC Hgb Hct MCV MCH MCHC RDW Plt Count MPV Immature Gran % (Auto) Neut % (Auto) Lymph % (Auto) [place] % (Auto) Eos % (Auto) Baso % (Auto) Lymph # (Auto) [place] # (Auto) Eos # (Auto) Baso # (Auto) Abs Immat Gran (auto) Absolute Neuts (auto) Absolute Nucleated RBC Nucleated RBC % Sodium Potassium Chloride Carbon Dioxide Anion Gap BUN Creatinine Estim Creat Clear Calc Estimated GFR Glucose POC Capillary Glucose 119 H 118 H Calcium Magnesium Total Bilirubin AST ALT Alkaline Phosphatase Total Protein Albumin Quality VTE Prophylaxis VTE prophylaxis: pharmacologic ordered
[2024-11-16] MEDS: VENLAFAXINE HCL XR 75 MG CAP.ER.24H 150 MG PO (17:04)
--- NOTE | 2024-11-16 17:24 | P.DS_ITS ---
DS: Admitting Diagnosis Discharge Date 11/16/24 Admitting Diagnosis Chest Pain DS: Summary Hospital Course Hospital Course: 44-year-old chest pain presents to the emergency department for evaluation for tachycardia and left-sided chest pain. Does report a prior history of anxiety and depression and thought he was having increased anxiety causing his chest tightness on Thursday and Thursday but today the patient's watch told him that his heart rate was elevated. Patient called his primary care physician and he was instructed to present to the emergency department for evaluation. Patient denies any prior cardiac history. Patient denies any significant family history of coronary disease other than uncle who had congenital heart disease. Cardiology was consulted and patient underwent RAF with cardioversion today and converted to NSR, and cardiology recommended metoporlol 25mg bid and Eliquis x 30 days. and will follow up with cardiology CT Chest showed mediastinal mass, MRI chest was ordered however radiologist noted they do not have the equipement for cardiac MRI and thus unable to do the exam. Thus i called [facility] and consulted with Dr Cisneros thoracic [facility] who stated he will make an appointment and follow up with patient in the office. I discussed this with patient and provided Dr Cisneros office phone number in case they do not hear from him within the week. F/u with PCP in 3-5 days, cardiology as instructed and await Dr Cisneros office call for appointment otherwise call if not contacted within the week. Time Spent with Patient Time attestation: Total time spent providing and/or coordinating discharge services: DS: Data Data Completed and Pending Labs on day of discharge: Labs from last 24 hours 11/16/24 11/16/24 11/16/24 15:32 12:06 07:18 WBC RBC Hgb Hct MCV MCH MCHC RDW Plt Count MPV Immature Gran % (Auto) Neut % (Auto) Lymph % (Auto) [place] % (Auto) Eos % (Auto) Baso % (Auto) Lymph # (Auto) [place] # (Auto) Eos # (Auto) Baso # (Auto) Abs Immat Gran (auto) Absolute Neuts (auto) Absolute Nucleated RBC Nucleated RBC % Sodium Potassium Chloride Carbon Dioxide Anion Gap BUN Creatinine Estim Creat Clear Calc Estimated GFR Glucose POC Capillary Glucose 130 H 118 H 119 H Calcium Magnesium Total Bilirubin AST ALT Alkaline Phosphatase Total Protein Albumin 11/16/24 11/15/24 03:29 20:19 WBC 12.5 H RBC 5.30 Hgb 16.3 Hct 44.4 MCV 83.8 MCH 30.8 MCHC 36.7 H RDW 12.3 Plt Count 186 MPV 10.3 Immature Gran % (Auto) 0.3 Neut % (Auto) 64.3 Lymph % (Auto) 27.0 [place] % (Auto) 6.6 Eos % (Auto) 1.1 Baso % (Auto) 0.7 Lymph # (Auto) 3.38 H [place] # (Auto) 0.8 H Eos # (Auto) 0.1 Baso # (Auto) 0.1 Abs Immat Gran (auto) 0.04 H Absolute Neuts (auto) 8.0 H Absolute Nucleated RBC 0.000 Nucleated RBC % 0.0 Sodium 136 L Potassium 3.5 Chloride 105 Carbon Dioxide 24 Anion Gap 7 BUN 14 Creatinine 0.83 Estim Creat Clear Calc 143 Estimated GFR > 60 Glucose 98 POC Capillary Glucose 106 H Calcium 8.7 Magnesium 2.0 Total Bilirubin 2.4 H AST 26 ALT 33 Alkaline Phosphatase 53 Total Protein 6.2 L Albumin 3.9 Discharge Plan Discharge Attending physician on discharge: Juan Pablo Suarez Consulting providers: Jay Yang Discharging Clinician: Juan Pablo Suarez Anticipated Discharge Date/Time: 11/16/24 17:22 Patient Disposition: Home Activity: as tolerated Diet: as tolerated and heart healthy Patient Instructions: Antibiotic Form Patient Language: Beninese Stand Alone Forms: General Discharge Information Follow-up/Referrals: Jay Yang MD [Physician] - (F/u with cardiology as instructed ) Amber Queen APRN [Primary Care Provider] - (F/u with PCP in 3-5 days ) Discharge Medications: New Eliquis 5 mg Tablet 5 mg PO Q12HR 30 Days Qty: 60 0RF metoprolol succinate 25 mg capsule,sprinkle,ER 24hr 25 mg PO DAILY 30 Days Qty: 30 1RF Continued Clonazepam 0.5 mg 0.5 mg BYMOUTH BID Rx Instructions: 0.5mg quetiapine 150 mg tablet extended release 24 hr 100 mg PO QHS buspirone 10 mg tablet 20 mg PO BID venlafaxine 150 mg capsule,extended release 24hr 150 mg PO QPM clonidine HCl 0.1 mg tablet 0.05 mg PO QID escitalopram oxalate 20 mg tablet 20 mg PO DAILY Ozempic 2 mg/dose (8 mg/3 mL) pen injector 2 mg subcut WEEKLY (DME) Dexcom G7 Lean Leader Misc See Rx Instructions .Route Qty: 1 0RF Rx Instructions: As directed (DME) Monoject Safety Syringes 3 mL 21 gauge x 1 1/2 syringe See Rx Instructions .Route Qty: 10 3RF Rx Instructions: As directed with testosterone every 2 weeks IM (DME) Dexcom G7 Sensor Device See Rx Instructions .Route Qty: 1 12RF Rx Instructions: As directed Date of admission: 11/16/24 10:11 Primary Care Provider: Amber Queen Admitting Provider: Tyler Baird Attending physician on admission: Tyler Baird Condition: Serious
--- NOTE | 2024-11-16 18:51 | PCCCNOTE ---
Called to assist with the [employer] Co-pay savings card. Per the [employer] website completed a request and then called to activate the card with the patient. Called [facility] at [phone] and spoke with Vicenta and shared the co-pay savings card information. Vicenta stated this medication also requires a PA to call [facility] at [phone] which was done with the ID number of [id number] and spoke with [employer]. Completed a over the phone PA which the medication was approved with today's date until 11/16/2025. Case ID# given was [id number]. The pharmacy was closed for lunch however Vicenta stated she would listen to the VM and try to run the rx again after her break ends at 1914. Updated the pt's nurse on the status of the medication.-eunice
--- NOTE | 2024-11-17 12:36 | PCCCNOTE ---
1236-Received the approval for the pt's Eliquis today. Called the pt to ensure he was able to flower buncher or picker his medication in which he stated he was. Denied having any further needs at this time.-eunice
== END 2024-11-16 19:13 | disposition home or self-care (01) | DRG 308 ==
LOC: ANHED 17:32 → ANHIMU 18:28
PROVIDERS: Internal Medicine Cardiovascular Disease; Physician Assistant; Admitting Provider Internal Medicine; Emergency Provider Emergency Medicine; PCP Nurse Practitioner Adult Health; Visit Provider Internal Medicine
PROC: B24BZZ4 Ultrasonography of Heart with Aorta, Transesophageal (ICD-10-PCS; CPT 93312; principal; 2024-11-16 13:00)
PROC: 5A2204Z Restoration of Cardiac Rhythm, Single (ICD-10-PCS; 2024-11-16 13:00)
DX: I48.91 Unspecified atrial fibrillation (principal); J98.59 Other diseases of mediastinum, not elsewhere classified; F41.8 Other specified anxiety disorders; G47.33 Obstructive sleep apnea (adult) (pediatric); E11.9 Type 2 diabetes mellitus without complications; Z79.85 Long-term (current) use of injectable non-insulin antidiabetic drugs
CPT/HCPCS: 36415; 71046; 71275; 80048; 80053; 82948; 83036; 83690; 83735; 84443; 84484; 85025; 85380; 85610; 85730; 92960; 93005; 93306; 93312; 93320; 93325; 96361; 96365; 96366; 96374; 96375; 99285; A9270; G0378; J0616; J1163; J2003; J2704; J7040; J7120; Q9967